=== PATIENT | male | born 1940 | race Caucasian/White ===

== ENCOUNTER → 2016-09-04 | Outpatient (REF) | payer MEDICARE ==
[~2016-09-04] MED LIST: DILT120C14 PO; INSULANT SC; JANU100T PO; LASI40TA PO; METF1000 PO; OMEP20CA3 PO; PRAV40TA2 PO
[2016-09-05 12:01] LABS: ALBUMIN 4.13 GM/DL (3.29-5.55); ALBUMIN % 51.6 % (55.8-66.1); GAMMA GLOBULIN % 14.9 % (11.1-18.8)
== END ==
LOC: M LAB REF 12:22
DX: R79.89 Other specified abnormal findings of blood chemistry (principal)

== ENCOUNTER 2017-04-12 07:30 | Inpatient (IN) | payer MEDICARE ==
[~2017-04-12] VITALS: Ht 182.9 cm; Wt 117.7 kg
[2017-04-12] MEDS ORDERED: DEXTROSE 50% 50 ML SYRINGE IV STA (07:40)
[2017-04-12] MEDS ORDERED: METF10004 PO (07:45)
[2017-04-12] MEDS ORDERED: ALBUTEROL SULFATE 2.5 MG/0.5 ML INH NEB SOLN INH ONE (07:45)
[2017-04-12] MEDS ORDERED: methylPREDNISolone INJ 125 MG/2 ML VIAL (J2930) IV ONE (07:45)
[2017-04-12] MEDS ORDERED: IPRATROPIUM 0.5MG/ALBUTEROL 2.5MG INH SOL UD 3ML (DUONEB)(J7620) NEB ONE (07:45)
[2017-04-12] MEDS ORDERED: ASPI81CH PO (07:45)
[2017-04-12] MEDS ORDERED: INSUDET SC (07:45)
[2017-04-12] MEDS ORDERED: OMEP40CA2 PO (07:45)
[2017-04-12 08:53] LABS: BASO % 0.4 % (0.0-1.0); EOS % 0.1 % (0.0-3.0); IMMATURE GRANULOCYTE % 0.3 % (0-0); LYMPH # 0.9 10^3/uL (1.5-4.5); LYMPH % 11.7 % (24.0-44.0); MEAN CORPUSCULAR HEMOGLOBIN 27.4 pg (27.0-33.0); MEAN CORPUSCULAR HGB CONC 32.3 g/dl (32.0-36.5); MEAN CORPUSCULAR VOLUME 84.7 fl (80.0-96.0); MONO # 0.6 10^3/uL (0.0-0.8); MONO % 8.1 % (0.0-5.0); NEUTROPHILS # 6.2 10^3/uL (1.8-7.7); NEUTROPHILS % 79.4 % (36.0-66.0); PLATELET COUNT, AUTOMATED 397 10^3/uL (150-450); RED CELL DISTRIBUTION WIDTH 17.2 % (11.5-14.5); WHITE BLOOD COUNT 7.8 10^3/uL (4.0-10.0)
[2017-04-12 08:57] LABS: INR 1.09
[2017-04-12] MEDS ORDERED: FUROSEMIDE 100 MG/10 ML VIAL (J1940) IV ONE (09:00)
[2017-04-12] MEDS: ASPIRIN 81 MG CHEW TABLET PO SCH (09:00)
[2017-04-12 09:22] LABS: ALBUMIN 3.4 GM/DL (3.2-5.2); ALBUMIN/GLOBULIN RATIO 0.85 (1.00-1.93); BILIRUBIN,DIRECT 0.6 MG/DL (0.0-0.2); CALCIUM LEVEL 8.9 MG/DL (8.8-10.2); CREATININE FOR GFR 1.49 MG/DL (0.70-1.30); GLOMERULAR FILTRATION RATE 48.9 (>42); POTASSIUM SERUM 3.8 MEQ/L (3.5-5.1); THYROXINE (T4) 10.6 UG/DL (4.5-12.0); TOTAL PROTEIN 7.4 GM/DL (6.4-8.2)
--- NOTE | 2017-04-12 09:42 | REP ---
PORTABLE CHEST: AP portable view of the chest is performed. Comparison is made with multiple prior exams, the most recent of which is 11/30/2015. There is cardiomegaly and vascular congestion. There appears to be mild diffuse interstitial edema. No consolidating infiltrate is visualized. There is calcification and ectasia of the thoracic aorta. IMPRESSION: Cardiomegaly with vascular congestion and mild diffuse interstitial edema. Signed by Ahsan Valerio MD 04/12/2017 05:14 P
[2017-04-12 09:48] LABS: ABG BASE EXCESS -1.8 (-2.0-2.0); ABG HCO3 22.3 MEQ/L (22.0-26.0); ABG PARTIAL PRESSURE O2 143.3 mmHg (75.0-100.0); ABG TOTAL CO2 23.4 MEQ/L (23.0-31.0)
[2017-04-12] MEDS ORDERED: PRAV80TA2 PO (10:00)
[2017-04-12] MEDS ORDERED: JANU50TA8 PO (10:00)
[2017-04-12] MEDS ORDERED: ACET650T3 PO (10:01)
[2017-04-12] MEDS ORDERED: ACET25TA12 PO (10:01)
[2017-04-12] MEDS ORDERED: VERA180C PO (10:01)
[2017-04-12] MEDS ORDERED: OMEP20CA3 PO (10:02)
[2017-04-12] MEDS ORDERED: GLUCAGON FOR INJ 1 MG VIAL (J1610) SC PRN (10:30)
[2017-04-12] MEDS ORDERED: GLUCOSE 4 GM CHEW TABLET PO PRN (10:30)
[2017-04-12] MEDS ORDERED: ALBUTEROL SULFATE 2.5 MG/0.5 ML INH NEB SOLN INH PRN (10:30)
[2017-04-12] MEDS ORDERED: DEXTROSE 50% 50 ML SYRINGE IV PRN (10:30)
[2017-04-12] MEDS ORDERED: ONDANSETRON 4MG/2ML VIAL (J2405) IV PRN (10:30)
[2017-04-12] MEDS ORDERED: ACETAMINOPHEN TAB 650MG DOSE (2X325MG) PO PRN (10:30)
[2017-04-12] MEDS: HEPARIN SOD (PORCINE) 5000 UNITS/ML VIAL SC SCH ×2 (13:14→22:10)
[2017-04-12] MEDS: HumaLOG INSULIN (NovoLOG) PER UNIT SC SCH ×3 (13:14→21:00)
[2017-04-12] MEDS: OMEPRAZOLE 20 MG CAP PO SCH (13:14)
[2017-04-12 13:45] VITALS: BP 185/97
[2017-04-12] MEDS: VERAPAMIL 40 MG TAB PO SCH ×2 (14:48→22:10)
[2017-04-12] MEDS: PRAVASTATIN 20 MG TAB PO SCH (14:48)
[2017-04-12] MEDS: FUROSEMIDE 100 MG/10 ML VIAL (J1940) IV SCH ×2 (14:48→21:58)
[2017-04-12] MEDS: IPRATROPIUM 0.5MG/ALBUTEROL 2.5MG INH SOL UD 3ML (DUONEB)(J7620) NEB SCH ×2 (15:32→20:03)
--- NOTE | 2017-04-12 15:33 | HPE ---
DATE OF ADMISSION: 04/12/2017 PRIMARY CARE PROVIDER: Dr. Valentine. CHIEF COMPLAINT: Shortness of breath. SUMMARY OF PRESENTATION: The patient described increasing shortness of breath over several weeks, with increasing weight over several months. Today, he was up between 4:30 and 5 a.m. drinking coffee outside on his porch and he became acute short of breath. It was worse with movement. He was unable to get off of his porch. He came to the hospital for evaluation, was felt to be fluid overloaded, and I was called for admission. He does not describe any fever or chills. He has had some cough. No orthopnea. No paroxysmal nocturnal dyspnea. ALLERGIES: The patient has no known drug allergies. MEDICATIONS AT HOME: - Tylenol - Lasix 40 mg daily - metformin 1000 mg at bedtime - Tylenol every evening as needed at bedtime - Janumet by mouth at bedtime - aspirin 81 mg daily - insulin Levemir 15 units subcutaneous daily - omeprazole 20 mg daily - pravastatin 80 mg daily - verapamil ER 180 mg daily PAST MEDICAL HISTORY: 1. Insulin-requiring diabetes. 2. Hyperlipidemia. 3. Hypertension. 4. History of gastrointestinal (GI) bleed in 2006. 5. Morbid obesity which complicates care. PAST SURGICAL HISTORY: 1. Notable for surgical lesion removed from his scrotum. 2. Esophagogastroduodenoscopy (EGD). 3. History of gastric ulcer with GI blood loss. SOCIAL HISTORY: The patient lives alone. He continues to smoke, he says a 1/3 pack a day. He started smoking when he was [age] years old. FAMILY HISTORY: Notable for father at age 61 with heart disease. Mother at age 57 with GI cancer. REVIEW OF SYSTEMS: Notable for no headache, no visual changes, no runny nose, no sore throat. No abdominal pain. He does not describe change in bowel or bladder habits. Does not describe history of seizures. Otherwise unremarkable. PHYSICAL EXAMINATION: VITAL SIGNS: Temperature 96.5, pulse 93, respiratory rate 26, blood pressure 152/70, 99% on two liters. GENERAL: He is awake, appropriately interactive, pleasantly conversant, a good historian. HEENT: Head is normocephalic. Pupils equal, round, and reactive. Anicteric. Nasal septum is midline. Mucous membranes are moist. NECK: Thick. LUNGS: Breathing is symmetrical. I to E ratio is 1:4. There are no wheezes, rales or rhonchi. There is no costovertebral angle tenderness. There is no sacral edema. HEART: Regular rate and rhythm. It is borderline tachycardic. Normal S1, S2. Distant sounding. Radial pulses 2+. Capillary refill is less than two seconds. ABDOMEN: Soft, doughy, nontender. Somewhat distended. There is 1+ bilateral lower extremity edema extending to the knees bilaterally. LABORATORY DATA: Chest x-ray shows cardiomegaly and vascular congestion. EKG is currently unavailable, but did not show acute ST-T wave changes. White cell count 7.8, hemoglobin 12.7, platelets 397. BUN 21, creatinine 1.49. Lactic acid was initially 3.9, repeat 2.9. Troponin negative times two. ASSESSMENT: This is a 77-year-old gentleman with decompensated congestive heart failure. Patient will require a two-midnight hospital stay. Plan will be as follows: 1. Cardiovascular: The patient would appear to have decompensated heart failure. It is unclear to me whether or not this is right or left-sided heart failure. A 2D echocardiogram is ordered. We will pursue diuresis. Place on telemetry. Cycle troponins. 2. The patient has hypercholesterolemia: We will continue statin drug. 3. The patient has diabetes: He will be continued on long-acting insulin and sliding scale. 4. The patient has hypertension: Blood pressure is reasonably controlled in the current setting. 5. The patient has morbid obesity which complicates care. 6. The patient has ongoing tobacco use: We have discussed smoking cessation counseling for greater than 10 minutes. He declines replacement therapy.
[2017-04-12 16:00] VITALS: BP 160/91
[2017-04-12 20:00] VITALS: BP 166/80
[2017-04-13] VITALS: BP 144/77
[2017-04-13 00:26] LABS: CALCIUM LEVEL 8.8 MG/DL (8.8-10.2); CREATININE FOR GFR 1.55 MG/DL (0.70-1.30); GLOMERULAR FILTRATION RATE 46.8 (>42); MAGNESIUM LEVEL 1.5 MG/DL (1.8-2.4); POTASSIUM SERUM 3.9 MEQ/L (3.5-5.1)
[2017-04-13] MEDS ORDERED: MAG SULF 1GM/100ML (MAG RUN) 1 GM in APPROPRIATE DILUENT 1 EA IV ONE (00:45)
[2017-04-13 04:00] VITALS: BP 145/75
[2017-04-13 05:36] LABS: MEAN CORPUSCULAR HGB CONC 32.5 g/dl (32.0-36.5); RED CELL DISTRIBUTION WIDTH 16.7 % (11.5-14.5); WHITE BLOOD COUNT 5.9 10^3/uL (4.0-10.0)
[2017-04-13 06:03] LABS: CALCIUM LEVEL 9.2 MG/DL (8.8-10.2); CREATININE FOR GFR 1.52 MG/DL (0.70-1.30); GLOMERULAR FILTRATION RATE 47.8 (>42); MAGNESIUM LEVEL 1.9 MG/DL (1.8-2.4); POTASSIUM SERUM 3.9 MEQ/L (3.5-5.1)
[2017-04-13] MEDS: FUROSEMIDE 100 MG/10 ML VIAL (J1940) IV SCH ×3 (06:28→21:55)
[2017-04-13] MEDS: VERAPAMIL 40 MG TAB PO SCH ×3 (06:28→21:56)
[2017-04-13 08:00] VITALS: BP 145/62
--- NOTE | 2017-04-13 08:06 | ECGEPIP ---
Stationary ECG Study [facility] - ED Test Date: 2017-04-12 Pat Name: EDA LOYOLA Department: Room: - Gender: M Chairman Emeritus: : 1940 Requested By: Isidro Caputo Order Number: [id number] Reading MD: Scottie Obrien Measurements Intervals [place] Rate: 92 P: 13 DE: 145 QRS: 61 QRSD: 137 T: 36 QT: 378 QTc: 469 Interpretive Statements SINUS RHYTHM WITH FREQUENT VENTRICULAR PREMATURE COMPLEXES AND OCCASIONAL PAC POSSIBLE LEFT ATRIAL ENLARGEMENT RIGHT BUNDLE BRANCH BLOCK PROBABLE ANTERIOR MYOCARDIAL INFARCTION, OF INDETERMINATE AGE SIMILAR TO 01/12/13 Electronically Signed On 04-13-2017 8:05:47 EDT by Scottie Obrien
[2017-04-13] MEDS: IPRATROPIUM 0.5MG/ALBUTEROL 2.5MG INH SOL UD 3ML (DUONEB)(J7620) NEB SCH ×4 (08:25→19:55)
[2017-04-13] MEDS: ASPIRIN 81 MG CHEW TABLET PO SCH (09:00)
[2017-04-13] MEDS: HEPARIN SOD (PORCINE) 5000 UNITS/ML VIAL SC SCH ×2 (09:55→21:54)
[2017-04-13] MEDS: OMEPRAZOLE 20 MG CAP PO SCH (09:55)
[2017-04-13] MEDS: PRAVASTATIN 20 MG TAB PO SCH (09:55)
[2017-04-13] MEDS: HumaLOG INSULIN (NovoLOG) PER UNIT SC SCH ×4 (09:56→21:00)
[2017-04-13] MEDS: LEVEMIR (INSULIN DETEMIR) 1 UNITS/0.01ML SC SCH (09:56)
[2017-04-13 12:00] VITALS: BP 134/64
[2017-04-13 16:00] VITALS: BP 126/62
[2017-04-13 20:00] VITALS: BP 141/81
--- NOTE | 2017-04-13 20:50 | ECGEPIP ---
Stationary ECG Study [facility] Test Date: 2017-04-13 Pat Name: EDA LOYOLA Department: Room: - Gender: M Eyedotter: NORAH : 1940 Requested By: ORLANDO Singh Order Number: [id number] Reading MD: Orlando Watts Measurements Intervals [place] Rate: 89 P: 9 VT: 169 QRS: -9 QRSD: 136 T: 24 QT: 396 QTc: 483 Interpretive Statements SINUS RHYTHM, 1 PVC RIGHT BUNDLE BRANCH BLOCK PROBABLE Right ventricle hypertrophy. Fewer PVCs than 04/12/2017. Electronically Signed On 04-13-2017 20:49:47 EDT by Orlando Watts
[2017-04-14] VITALS: BP 142/78
[2017-04-14 04:00] VITALS: BP 142/80
--- NOTE | 2017-04-14 04:35 | IPN ---
DATE OF SERVICE: 04/13/2017 Mr. Malcolm is feeling well today, less short of breath, more energetic, no chest pain. Temperature is 98.5, pulse 89, respiratory rate 20, blood pressure 134/64, 94% on room air. Intake and output (I and O) notable for a negative fluid balance of -1895. Weight is 134.6 kg today, which is actually up 0.2 from yesterday. Breathing is symmetrical and rested. I:E ratio is 1:3. Heart is in a regular rate and rhythm. Abdomen soft, doughy, nontender. He has had short runs of nonsustained VT on monitor. White cell count is 5.9, hemoglobin 11.6, platelets of 384. BUN 24, creatinine 1.52, sodium is 135. Blood cultures are negative times two at 24 hours. My assessment is as follows: This is a 77-year-old with decompensated congestive heart failure with unknown left ventricular ejection fraction. Plan will be as follows: 1. Cardiovascular. Patient has decompensated heart failure. 2D echocardiogram is pending for today. I have discussed it in general with the echocardiogram dentures lab technician. Will look for diastolic or systolic function, possibility of right-sided heart failure does occur to me. 2. Patient has hypercholesterolemia. Continue statin. 3. Patient has diabetes. Continuing on insulin as ordered yesterday. 4. Patient has hypertension, which is well controlled for the current setting. 5. Patient has morbid obesity which complicates care. We did discuss this patient by phone with Dr. Valentine last evening.
[2017-04-14] MEDS: FUROSEMIDE 100 MG/10 ML VIAL (J1940) IV SCH ×3 (05:53→21:40)
[2017-04-14] MEDS: VERAPAMIL 40 MG TAB PO SCH ×3 (05:53→22:02)
[2017-04-14 07:02] LABS: MEAN CORPUSCULAR HEMOGLOBIN 26.8 pg (27.0-33.0); MEAN CORPUSCULAR HGB CONC 32.4 g/dl (32.0-36.5); MEAN CORPUSCULAR VOLUME 82.6 fl (80.0-96.0); RED CELL DISTRIBUTION WIDTH 17.2 % (11.5-14.5); WHITE BLOOD COUNT 8.7 10^3/uL (4.0-10.0)
[2017-04-14 07:20] LABS: CALCIUM LEVEL 8.9 MG/DL (8.8-10.2); CREATININE FOR GFR 1.53 MG/DL (0.70-1.30); GLOMERULAR FILTRATION RATE 47.5 (>42); MAGNESIUM LEVEL 1.7 MG/DL (1.8-2.4); POTASSIUM SERUM 3.3 MEQ/L (3.5-5.1)
[2017-04-14] MEDS: HumaLOG INSULIN (NovoLOG) PER UNIT SC SCH ×4 (07:52→21:39)
[2017-04-14 08:00] VITALS: BP 150/78
[2017-04-14] MEDS: IPRATROPIUM 0.5MG/ALBUTEROL 2.5MG INH SOL UD 3ML (DUONEB)(J7620) NEB SCH (08:13)
[2017-04-14] MEDS: LEVEMIR (INSULIN DETEMIR) 1 UNITS/0.01ML SC SCH (09:18)
[2017-04-14] MEDS: OMEPRAZOLE 20 MG CAP PO SCH (09:19)
[2017-04-14] MEDS: ASPIRIN 81 MG CHEW TABLET PO SCH (09:19)
[2017-04-14] MEDS: PRAVASTATIN 20 MG TAB PO SCH (09:19)
[2017-04-14] MEDS: HEPARIN SOD (PORCINE) 5000 UNITS/ML VIAL SC SCH ×2 (09:19→22:01)
--- NOTE | 2017-04-14 10:25 | IPN ---
DATE: 04/14/2017 Mr. Malcolm is still feeling short of breath today. He is short of breath with just getting cleaned up and moving around the room. Temperature is 97.8, pulse 91, respiratory rate 18, blood pressure 150/78, 97% on room air. Intake and output notable for a positive fluid balance of 15. No bowel movements noted. Body mass index (BMI) is 40.1. Negative fluid status of -1700 thus far today. He is awake, appropriately interactive, pleasant, easily conversant. Remembers me from previous encounters. Neck is thick. Breathing is symmetrical and rested. No accessory muscle use. Diminished more on the right than the left. Heart is distant sounding. Normal S1 and S2. No significant arrhythmia noted on the monitor. Abdomen soft, doughy, nontender. There is 1-2 + bilateral lower extremity edema to the knees. White cell count is 8.7, hemoglobin 12, platelets of 390. BUN 26, creatinine 1.53, potassium 3.3. My assessment is as follows: This is a 77-year-old with decompensated congestive heart failure with unknown left ventricular ejection fraction. 2D echo is still pending. Plan is as follows: 1. Cardiovascular. Patient has decompensated heart failure. I have asked for a verbal report of the ejection fraction when it becomes available from the cardiology team. Will continue with diuresis as currently ordered. Patient has a net negative fluid status during the course of his stay probably could stand to lose another 6 liters based on my current assessment. 2. Patient has hypercholesterolemia. Continue statin. 3. Patient has diabetes. Continue on insulin. 4. Patient has hypertension, which is reasonably controlled for the current setting. 5. Patient has morbid obesity, which complicates care. 7. This is a patient of Dr. Valentine's. 8. Addendum: I discussed with Dr. Watts by phone. EF 30%. Inferior wall motion abnormality. Mod mr. Mod tr. RV impairment. RV pressure 60. IVC pressure likely 20. Dr. Watts would like to see in outpt consultation. [facility]
--- NOTE | 2017-04-14 10:54 | REP ---
Chest two views HISTORY: Shortness of breath Comparison: 04/12/2017 An increase in interstitial markings is present in the lungs. Small bilateral pleural effusions are present. The cardiac silhouette is enlarged. The pulmonary vasculature is normal in appearance. The bony structure is intact. IMPRESSION: Impression 1. Interstitial edema unchanged compared to the previous study. 2. Small bilateral pleural effusions new compared to the previous study. Signed by Rashawn Sow MD 04/14/2017 10:46 A
[2017-04-14] MEDS ORDERED: POTASSIUM CHLORIDE 10 MEQ SR TABLET PO ONE (11:00)
[2017-04-14] MEDS ORDERED: MAG SULF 1GM/100ML (MAG RUN) 1 GM in APPROPRIATE DILUENT 1 EA IV ONE (11:00)
[2017-04-14 12:00] VITALS: BP 143/77
[2017-04-14 16:00] VITALS: BP 147/87
[2017-04-14 19:27] VITALS: BP 131/70
[2017-04-15] VITALS: BP 137/72
[2017-04-15 04:00] VITALS: BP 140/81
--- NOTE | 2017-04-15 05:43 | ECHO ---
DATE OF PROCEDURE: 04/14/2017 REFERRING PHYSICIAN: Dr. Orlando Cueto. INDICATION: Heart failure unspecified, shortness of breath. HEIGHT: 73 inches. WEIGHT: 295 pounds. 2D MEASUREMENTS: Aortic root: 3.7 cm Proximal ascending aorta: 3.6 cm Left atrium: 4.9 cm Left ventricle diastole: 5.2 cm Left ventricle systole: 4.7 cm Ventricular septum: 1.04 cm Posterior wall: 1.00 cm Inferior vena cava: 2.7 cm DOPPLER MEASUREMENTS: Aortic valve velocity: 118 cm/s LVOT velocity: 84.2 cm/s LVOT VTI: 14.3 cm Moderate mitral regurgitation. Mitral E velocity: 140 cm/s Mitral A velocity: 82.4 cm/s Mitral deacceleration time: 127 ms Moderate tricuspid regurgitation. Estimated right ventricular systolic pressure at least 60 mmHg assuming an atrial pressure of at least 20 mmHg based on a dilated inferior vena cava suggestive of elevated CVP of at least 20 mmHg. Pulmonary artery systolic pressure 46 mmHg by pulmonary acceleration time method. MITRAL ANNULAR TISSUE DOPPLER: E-prime lateral: 6.4 cm/s DESCRIPTION: Rhythm was sinus. This was a moderately technically difficult echocardiogram. No pericardial effusion. This was a 2D, M-mode, color flow Doppler and pulsed wave Doppler examination and included mitral annular tissue Doppler. CONCLUSIONS: 1. Normal left ventricle size and diastole and mild dilatation of the left ventricle and systole. Normal LV wall thickness. Akinesis of the inferior basal segment of the left ventricle and severe hyperkinesis of the mid inferior LV segment; moderate global hypokinesis of the left ventricle elsewhere. Severe reduction of overall LV systolic function. LVEF 30% by visual estimate. 2. Pseudonormal LV diastolic filling pattern (grade 2 LV diastolic dysfunction). Presence of a B-notch on the mitral valve M-mode pattern suggestive of elevated left ventricle and diastolic pressure. Suggestive of elevated mean left pressure. 3. Normal appearing mitral leaflets. Moderate mitral regurgitation. 4. Mild aortic valve sclerosis of a 3-cusp aortic valve. 5. Visual appearance of moderate reduction in right ventricle systolic function. Normal right ventricle size. Moderate tricuspid regurgitation with structurally normal appearing mitral leaflets. Suggestive of severe elevation of estimated right ventricle systolic pressure. Elevated central venous pressure of at least 20 mmHg. Inferior vena cava plethora. 6. No pericardial effusion. 7. Moderately technically difficult echocardiogram. cc: Orlando Watts MD, FACC MD Edu Ryan MD
[2017-04-15] MEDS: FUROSEMIDE 100 MG/10 ML VIAL (J1940) IV SCH ×3 (05:56→21:37)
[2017-04-15] MEDS: VERAPAMIL 40 MG TAB PO SCH (05:57)
[2017-04-15] MEDS: HumaLOG INSULIN (NovoLOG) PER UNIT SC SCH ×4 (07:28→21:36)
[2017-04-15 07:51] LABS: MEAN CORPUSCULAR HGB CONC 32.4 g/dl (32.0-36.5); MEAN CORPUSCULAR VOLUME 83.5 fl (80.0-96.0); RED CELL DISTRIBUTION WIDTH 17.3 % (11.5-14.5); WHITE BLOOD COUNT 7.7 10^3/uL (4.0-10.0)
[2017-04-15 08:00] VITALS: BP 135/86
[2017-04-15 08:10] LABS: CALCIUM LEVEL 9.1 MG/DL (8.8-10.2); CREATININE FOR GFR 1.27 MG/DL (0.70-1.30); GLOMERULAR FILTRATION RATE 58.9 (>42); POTASSIUM SERUM 3.7 MEQ/L (3.5-5.1)
[2017-04-15] MEDS: HEPARIN SOD (PORCINE) 5000 UNITS/ML VIAL SC SCH ×2 (08:24→21:50)
[2017-04-15] MEDS: PRAVASTATIN 20 MG TAB PO SCH (08:24)
[2017-04-15] MEDS: LEVEMIR (INSULIN DETEMIR) 1 UNITS/0.01ML SC SCH (08:24)
[2017-04-15] MEDS: OMEPRAZOLE 20 MG CAP PO SCH (08:24)
[2017-04-15] MEDS: ASPIRIN 81 MG CHEW TABLET PO SCH (08:24)
[2017-04-15 12:00] VITALS: BP 137/76
[2017-04-15] MEDS: amLODIPine 10 MG TAB PO SCH (12:20)
[2017-04-15] MEDS: SENOKOT S TAB PO SCH ×2 (12:21→21:48)
--- NOTE | 2017-04-15 12:27 | IPNPDOC ---
Subjective Date Seen The patient was seen on 04/15/17. Subjective Chief Complaint/HPI The patient is a 77-year-old male admitted with a reason for visit of Congestive Heart Failure. Events since last encounter sob getting better, leg swelling still unchanged , no chest pain , no cough , no fever or chills, no nausea or vomiting or abdominal pain , has constipation. Objective Physical Examination General Exam: Positive: Alert, Cooperative, No Acute Distress Eye Exam: Positive: PERRLA, Conjunctiva & lids normal, EOMI, Negative: Sclera icteric ENT Exam: Positive: Atraumatic, Mucous membr. moist/pink, Pharynx Normal Neck Exam: Positive: Supple, Negative: JVD, thyromegaly Chest Exam: Positive: Rales, Diminished Heart Exam: Positive: Rate Normal, Regular Rhythm, Normal S1, Normal S2, Negative: Murmurs, Rubs Telemetry: Positive: No significant arrhythmia Abdomen Exam: Positive: Normal bowel sounds, Soft, Negative: Tenderness, Hepatospenomegaly Extremity Exam: Positive: Edema Skin Exam: Positive: Nl turgor and temperature, Negative: Rash, Breakdown Assessment /Plan Problems (1) Systolic CHF Status: Acute Problem Text: acute systolic CHF with EF of 30% Echo shows regional wall motion abnomality so possibly has underlying obstructive coronary artery disease with prior silent AMI. will need to follow up with banking supervisor. will continue with lasix, will change verapamil to amlodipine as has no negative ionotrophic effect. will start lisinopril will try to increase lisinopril as tolerated. (2) KYA (acute kidney injury) Status: Acute Problem Text: due to cardiorenal disease due to CHF and fluid overload improving after aggressive diuresis. (3) Pulmonary hypertension Status: Chronic Problem Text: possibly secondary to left sided heart failure. (4) Right heart failure Status: Acute Response to Treatment: Improving (5) Hyperlipidemia Status: Chronic Problem Text: continue statin (6) Morbid obesity Status: Chronic (7) Hypertension Status: Chronic Problem Text: will give amlodipine and start lisinopril will try to switch from calcium channel sukh to ACEi and betablocker. (8) Diabetes Status: Chronic Plan/VTE VTE Prophylaxis Ordered?: Yes VS, I&O, 24H, Fishbone Vital Signs/I&O Vital Signs Date Time Temp Pulse Resp B/P (MAP) Pulse Ox O2 Delivery O2 Flow Rate FiO2 10/2/17 08:00 Room Air 04/15/17 08:00 97.7 89 16 135/86 (102) 98 04/12/17 15:20 1.0 I&O- Last 24 Hours up to 6 AM 04/16/17 05:59 Intake Total 360 ml Output Total 800 ml Balance -440 ml Laboratory Data 24H LABS Laboratory Tests 2 04/14/17 12:09: Bedside Glucose (Misc Panel) 151H 04/14/17 17:35: Bedside Glucose (Misc Panel) 83 04/14/17 21:34: Bedside Glucose (Misc Panel) 150H 04/15/17 07:24: Bedside Glucose (Misc Panel) 100 04/15/17 07:41: Anion Gap 9, Glomerular Filtration Rate 58.9, Blood Urea Nitrogen 26H, Creatinine 1.27, Sodium Level 136, Potassium Level 3.7, Chloride Level 99, Carbon Dioxide Level 28, Calcium Level 9.1, Magnesium Level 2.0 04/15/17 11:45: Bedside Glucose (Misc Panel) 165H CBC/BMP Laboratory Tests 04/15/17 07:41 Red Blood Count 4.66, Mean Corpuscular Volume 83.5, Mean Corpuscular Hemoglobin 27.0, Mean Corpuscular Hemoglobin Concent 32.4, Red Cell Distribution Width 17.3 H, Calcium Level 9.1 Microbiology Microbiology 04/12/17 Blood Culture - Preliminary, Resulted No Growth after 72 hours. All specime... 04/12/17 Blood Culture - Preliminary, Resulted No Growth after 72 hours. All specime... 04/12/17 Influenza Virus Type A Antigen - Final, Complete 04/12/17 Influenza Virus Type B Antigen - Final, Complete SOBEIDA BURRIS MD Apr 15, 2017 12:27
[2017-04-15 16:00] VITALS: BP_SYST 137; BP_SYST 138; BP_DIAS 71; BP_DIAS 96
[2017-04-15 20:00] VITALS: BP 153/75
[2017-04-15] MEDS ORDERED: LISINOPRIL 5 MG TAB PO SCH (21:00)
[2017-04-16] VITALS: BP 125/66
[2017-04-16 04:00] VITALS: BP 144/78
[2017-04-16] MEDS: FUROSEMIDE 100 MG/10 ML VIAL (J1940) IV SCH ×3 (06:21→21:48)
[2017-04-16 06:24] LABS: MEAN CORPUSCULAR HEMOGLOBIN 27.3 pg (27.0-33.0); MEAN CORPUSCULAR HGB CONC 32.5 g/dl (32.0-36.5); MEAN CORPUSCULAR VOLUME 84.2 fl (80.0-96.0); RED CELL DISTRIBUTION WIDTH 17.2 % (11.5-14.5); WHITE BLOOD COUNT 6.2 10^3/uL (4.0-10.0)
[2017-04-16 06:45] LABS: ANION GAP 6 MEQ/L (8-16); BLOOD UREA NITROGEN 24 MG/DL (7-18); CALCIUM LEVEL 8.7 MG/DL (8.8-10.2); CARBON DIOXIDE LEVEL 32 MEQ/L (21-32); CHLORIDE LEVEL 100 MEQ/L (98-107); CREATININE FOR GFR 1.12 MG/DL (0.70-1.30); GLOMERULAR FILTRATION RATE > 60.0 (>42); GLUCOSE, FASTING 89 MG/DL (83-110); MAGNESIUM LEVEL 1.9 MG/DL (1.8-2.4); POTASSIUM SERUM 3.6 MEQ/L (3.5-5.1); SODIUM LEVEL 138 MEQ/L (136-145)
[2017-04-16] MEDS: HumaLOG INSULIN (NovoLOG) PER UNIT SC SCH ×4 (07:14→21:00)
[2017-04-16 08:00] VITALS: BP 135/75
[2017-04-16] MEDS: OMEPRAZOLE 20 MG CAP PO SCH (08:29)
[2017-04-16] MEDS: SENOKOT S TAB PO SCH ×2 (08:29→21:48)
[2017-04-16] MEDS: PRAVASTATIN 20 MG TAB PO SCH (08:29)
[2017-04-16] MEDS: ASPIRIN 81 MG CHEW TABLET PO SCH (08:29)
[2017-04-16] MEDS: HEPARIN SOD (PORCINE) 5000 UNITS/ML VIAL SC SCH ×2 (08:29→21:48)
[2017-04-16] MEDS: LEVEMIR (INSULIN DETEMIR) 1 UNITS/0.01ML SC SCH (08:30)
[2017-04-16] MEDS: amLODIPine 10 MG TAB PO SCH (08:30)
--- NOTE | 2017-04-16 11:24 | IPNPDOC ---
Subjective Date Seen The patient was seen on 04/16/17. Subjective Chief Complaint/HPI The patient is a 77-year-old male admitted with a reason for visit of Congestive Heart Failure. Events since last encounter No complaints this morning , denies any sob , denies any chest pain or cough , leg swelling improving. Objective Physical Examination General Exam: Positive: Alert, Cooperative, No Acute Distress Eye Exam: Positive: PERRLA, Conjunctiva & lids normal, EOMI, Negative: Sclera icteric ENT Exam: Positive: Atraumatic, Mucous membr. moist/pink, Pharynx Normal Neck Exam: Positive: Supple, Negative: JVD, thyromegaly Chest Exam: Positive: Rales, Diminished Heart Exam: Positive: Rate Normal, Regular Rhythm, Normal S1, Normal S2, Negative: Murmurs, Rubs Telemetry: Positive: No significant arrhythmia Abdomen Exam: Positive: Normal bowel sounds, Soft, Negative: Tenderness, Hepatospenomegaly Extremity Exam: Positive: Edema Skin Exam: Positive: Nl turgor and temperature, Negative: Rash, Breakdown Assessment /Plan Problems (1) Systolic CHF Status: Acute Problem Text: acute systolic CHF with EF of 30% Echo shows regional wall motion abnomality so possibly has underlying obstructive coronary artery disease with prior silent AMI. will need to follow up with defense travel administrator. will continue with lasix, will change verapamil to amlodipine as has no negative ionotrophic effect. will start on low dose coreg. will start lisinopril will try to increase lisinopril as tolerated. (2) KYA (acute kidney injury) Status: Acute Response to Treatment: Improving Problem Text: due to cardiorenal disease due to CHF and fluid overload improving after aggressive diuresis. (3) Pulmonary hypertension Status: Chronic Problem Text: possibly secondary to left sided heart failure. (4) Right heart failure Status: Acute Response to Treatment: Improving (5) Hyperlipidemia Status: Chronic Problem Text: continue statin (6) Morbid obesity Status: Chronic (7) Hypertension Status: Chronic Problem Text: will give amlodipine started on lisinopril, start on coreg will try to switch from calcium channel sukh to ACEi and betablocker. (8) Diabetes Status: Chronic Plan/VTE VTE Prophylaxis Ordered?: Yes VS, I&O, 24H, Fishbone Vital Signs/I&O Vital Signs Date Time Temp Pulse Resp B/P (MAP) Pulse Ox O2 Delivery O2 Flow Rate FiO2 04/16/17 08:33 Room Air 04/16/17 08:30 85 135/75 04/16/17 08:00 97.8 18 96 04/12/17 15:20 1.0 I&O- Last 24 Hours up to 6 AM 04/17/17 06:00 Intake Total 240 ml Output Total 850 ml Balance -610 ml Laboratory Data 24H LABS Laboratory Tests 2 04/15/17 11:45: Bedside Glucose (Misc Panel) 165H 04/15/17 16:28: Bedside Glucose (Misc Panel) 106 04/15/17 20:35: Bedside Glucose (Misc Panel) 59L 04/15/17 21:31: Bedside Glucose (Misc Panel) 102 04/16/17 06:00: Anion Gap 6L, Glomerular Filtration Rate > 60.0, Blood Urea Nitrogen 24H, Creatinine 1.12, Sodium Level 138, Potassium Level 3.6, Chloride Level 100, Carbon Dioxide Level 32, Calcium Level 8.7L, Magnesium Level 1.9 CBC/BMP Laboratory Tests 04/16/17 06:00 Red Blood Count 4.50, Mean Corpuscular Volume 84.2, Mean Corpuscular Hemoglobin 27.3, Mean Corpuscular Hemoglobin Concent 32.5, Red Cell Distribution Width 17.2 H, Calcium Level 8.7 L Microbiology Microbiology 04/12/17 Blood Culture - Preliminary, Resulted No Growth after 72 hours. All specime... 04/12/17 Blood Culture - Preliminary, Resulted No Growth after 72 hours. All specime... 04/12/17 Influenza Virus Type A Antigen - Final, Complete 04/12/17 Influenza Virus Type B Antigen - Final, Complete SOBEIDA BURRIS MD Apr 16, 2017 11:24
[2017-04-16 12:00] VITALS: BP 140/77
[2017-04-16] MEDS: CARVedilol 3.125 MG TAB PO SCH ×2 (12:07→21:49)
[2017-04-16 16:00] VITALS: BP 136/72
[2017-04-16 20:00] VITALS: BP 138/63
[2017-04-16] MEDS: LISINOPRIL 10 MG TAB PO SCH (21:50)
[2017-04-17] VITALS: BP 127/73
[2017-04-17 04:00] VITALS: BP 129/73
[2017-04-17 05:59] LABS: MEAN CORPUSCULAR HGB CONC 32.5 g/dl (32.0-36.5); MEAN CORPUSCULAR VOLUME 82.9 fl (80.0-96.0); WHITE BLOOD COUNT 6.5 10^3/uL (4.0-10.0)
[2017-04-17 06:25] LABS: ANION GAP 7 MEQ/L (8-16); BLOOD UREA NITROGEN 25 MG/DL (7-18); CALCIUM LEVEL 8.9 MG/DL (8.8-10.2); CARBON DIOXIDE LEVEL 31 MEQ/L (21-32); CHLORIDE LEVEL 101 MEQ/L (98-107); CREATININE FOR GFR 1.15 MG/DL (0.70-1.30); GLOMERULAR FILTRATION RATE > 60.0 (>42); GLUCOSE, FASTING 120 MG/DL (83-110); MAGNESIUM LEVEL 1.8 MG/DL (1.8-2.4); POTASSIUM SERUM 3.6 MEQ/L (3.5-5.1); SODIUM LEVEL 139 MEQ/L (136-145)
[2017-04-17] MEDS: FUROSEMIDE 100 MG/10 ML VIAL (J1940) IV SCH ×3 (06:26→21:50)
[2017-04-17] MEDS: HumaLOG INSULIN (NovoLOG) PER UNIT SC SCH ×4 (07:56→21:00)
[2017-04-17 08:00] VITALS: BP 136/68
[2017-04-17] MEDS: HEPARIN SOD (PORCINE) 5000 UNITS/ML VIAL SC SCH ×2 (08:30→21:49)
[2017-04-17] MEDS: PRAVASTATIN 20 MG TAB PO SCH (08:31)
[2017-04-17] MEDS: SENOKOT S TAB PO SCH ×2 (08:31→21:48)
[2017-04-17] MEDS: OMEPRAZOLE 20 MG CAP PO SCH (08:31)
[2017-04-17] MEDS: CARVedilol 3.125 MG TAB PO SCH ×2 (08:31→21:49)
[2017-04-17] MEDS: ASPIRIN 81 MG CHEW TABLET PO SCH (08:31)
[2017-04-17] MEDS: LEVEMIR (INSULIN DETEMIR) 1 UNITS/0.01ML SC SCH (08:31)
[2017-04-17] MEDS ORDERED: amLODIPine 5 MG TAB PO SCH (09:00)
--- NOTE | 2017-04-17 12:40 | IPNPDOC ---
Subjective Date Seen The patient was seen on 04/17/17. Subjective Chief Complaint/HPI The patient is a 77-year-old male admitted with a reason for visit of Congestive Heart Failure. Events since last encounter No new complaints, feeling better daily with good negative balance. Objective Physical Examination General Exam: Positive: Alert, Cooperative, No Acute Distress Eye Exam: Positive: PERRLA, Conjunctiva & lids normal, EOMI, Negative: Sclera icteric ENT Exam: Positive: Atraumatic, Mucous membr. moist/pink, Pharynx Normal Neck Exam: Positive: Supple, Negative: JVD, thyromegaly Chest Exam: Positive: Rales, Diminished Heart Exam: Positive: Rate Normal, Regular Rhythm, Normal S1, Normal S2, Negative: Murmurs, Rubs Telemetry: Positive: No significant arrhythmia Abdomen Exam: Positive: Normal bowel sounds, Soft, Negative: Tenderness, Hepatospenomegaly Extremity Exam: Positive: Edema Skin Exam: Positive: Nl turgor and temperature, Negative: Rash, Breakdown Assessment /Plan Problems (1) Systolic CHF Status: Acute Problem Text: acute systolic CHF with EF of 30% Echo shows regional wall motion abnomality so possibly has underlying obstructive coronary artery disease with prior silent AMI. will need to follow up with pan washer hand. will continue with lasix, stopped verapamil. will start on low dose coreg. will start lisinopril will try to increase lisinopril as tolerated. (2) KYA (acute kidney injury) Status: Resolved Response to Treatment: Improving Problem Text: due to cardiorenal disease due to CHF and fluid overload improving after aggressive diuresis. (3) Pulmonary hypertension Status: Chronic Problem Text: possibly secondary to left sided heart failure. (4) Right heart failure Status: Acute Response to Treatment: Improving (5) Hyperlipidemia Status: Chronic Problem Text: continue statin (6) Morbid obesity Status: Chronic (7) Hypertension Status: Chronic Problem Text: will stop calcium channel blockers. started on lisinopril and coreg will try to increase ACEi and betablocker as tolerated. (8) Diabetes Status: Chronic Plan/VTE VTE Prophylaxis Ordered?: Yes VS, I&O, 24H, Fishbone Vital Signs/I&O Vital Signs Date Time Temp Pulse Resp B/P (MAP) Pulse Ox O2 Delivery O2 Flow Rate FiO2 04/17/17 08:31 78 136/68 04/17/17 08:00 97.9 20 92 Room Air 04/12/17 15:20 1.0 I&O- Last 24 Hours up to 6 AM 04/18/17 06:00 Intake Total 360 ml Output Total 800 ml Balance -440 ml Laboratory Data 24H LABS Laboratory Tests 2 04/16/17 16:37: Bedside Glucose (Misc Panel) 157H 04/16/17 22:03: Bedside Glucose (Misc Panel) 72L 04/17/17 05:48: Anion Gap 7L, Glomerular Filtration Rate > 60.0, Blood Urea Nitrogen 25H, Creatinine 1.15, Sodium Level 139, Potassium Level 3.6, Chloride Level 101, Carbon Dioxide Level 31, Calcium Level 8.9, Magnesium Level 1.8 04/17/17 11:56: Bedside Glucose (Misc Panel) 140H CBC/BMP Laboratory Tests 04/17/17 05:48 Red Blood Count 4.34, Mean Corpuscular Volume 82.9, Mean Corpuscular Hemoglobin 27.0, Mean Corpuscular Hemoglobin Concent 32.5, Red Cell Distribution Width 17.0 H, Calcium Level 8.9 Microbiology Microbiology 04/12/17 Blood Culture - Final, Complete NO GROWTH AFTER 5 DAYS 04/12/17 Blood Culture - Final, Complete NO GROWTH AFTER 5 DAYS 04/12/17 Influenza Virus Type A Antigen - Final, Complete 04/12/17 Influenza Virus Type B Antigen - Final, Complete SOBEIDA BURRIS MD Apr 17, 2017 12:40
[2017-04-17 14:47] VITALS: BP 132/74
[2017-04-17] MEDS: LISINOPRIL 10 MG TAB PO SCH (21:49)
[2017-04-17 22:00] VITALS: BP 155/76
[2017-04-18 06:00] VITALS: BP 140/78
[2017-04-18] MEDS: FUROSEMIDE 100 MG/10 ML VIAL (J1940) IV SCH ×3 (06:43→22:20)
[2017-04-18 06:55] LABS: MEAN CORPUSCULAR HEMOGLOBIN 27.4 pg (27.0-33.0); MEAN CORPUSCULAR HGB CONC 32.5 g/dl (32.0-36.5); MEAN CORPUSCULAR VOLUME 84.3 fl (80.0-96.0); RED CELL DISTRIBUTION WIDTH 17.2 % (11.5-14.5); WHITE BLOOD COUNT 6.5 10^3/uL (4.0-10.0)
[2017-04-18 07:18] LABS: ANION GAP 8 MEQ/L (8-16); BLOOD UREA NITROGEN 26 MG/DL (7-18); CALCIUM LEVEL 9.1 MG/DL (8.8-10.2); CARBON DIOXIDE LEVEL 30 MEQ/L (21-32); CHLORIDE LEVEL 100 MEQ/L (98-107); CREATININE FOR GFR 1.22 MG/DL (0.70-1.30); GLOMERULAR FILTRATION RATE > 60.0 (>42); GLUCOSE, FASTING 118 MG/DL (83-110); MAGNESIUM LEVEL 2.1 MG/DL (1.8-2.4); POTASSIUM SERUM 3.8 MEQ/L (3.5-5.1); SODIUM LEVEL 138 MEQ/L (136-145)
[2017-04-18] MEDS: LEVEMIR (INSULIN DETEMIR) 1 UNITS/0.01ML SC SCH (09:59)
[2017-04-18] MEDS: HumaLOG INSULIN (NovoLOG) PER UNIT SC SCH ×4 (10:02→21:00)
[2017-04-18] MEDS: ASPIRIN 81 MG CHEW TABLET PO SCH (10:03)
[2017-04-18] MEDS: HEPARIN SOD (PORCINE) 5000 UNITS/ML VIAL SC SCH ×2 (10:03→21:12)
[2017-04-18] MEDS: OMEPRAZOLE 20 MG CAP PO SCH (10:03)
[2017-04-18] MEDS: SENOKOT S TAB PO SCH ×2 (10:04→21:10)
[2017-04-18] MEDS: PRAVASTATIN 20 MG TAB PO SCH (10:05)
[2017-04-18] MEDS: CARVedilol 3.125 MG TAB PO SCH ×2 (10:05→21:11)
--- NOTE | 2017-04-18 11:44 | IPNPDOC ---
Subjective Date Seen The patient was seen on 04/18/17. Subjective Chief Complaint/HPI The patient is a 77-year-old male admitted with a reason for visit of Congestive Heart Failure. Events since last encounter feeling well no complaints this am. Objective Physical Examination General Exam: Positive: Alert, Cooperative, No Acute Distress Eye Exam: Positive: PERRLA, Conjunctiva & lids normal, EOMI, Negative: Sclera icteric ENT Exam: Positive: Atraumatic, Mucous membr. moist/pink, Pharynx Normal Neck Exam: Positive: Supple, Negative: JVD, thyromegaly Chest Exam: Positive: Rales, Diminished Heart Exam: Positive: Rate Normal, Regular Rhythm, Normal S1, Normal S2, Negative: Murmurs, Rubs Telemetry: Positive: No significant arrhythmia Abdomen Exam: Positive: Normal bowel sounds, Soft, Negative: Tenderness, Hepatospenomegaly Extremity Exam: Positive: Edema Skin Exam: Positive: Nl turgor and temperature, Negative: Rash, Breakdown Assessment /Plan Problems (1) Systolic CHF Status: Acute Problem Text: acute systolic CHF with EF of 30% Echo shows regional wall motion abnomality so possibly has underlying obstructive coronary artery disease with prior silent AMI. will need to follow up with entry table operator. will continues with lisinopril and coreg and maximize as tolerated. (2) KYA (acute kidney injury) Status: Resolved Problem Text: due to cardiorenal disease due to CHF and fluid overload improved after aggressive diuresis. (3) Pulmonary hypertension Status: Chronic Problem Text: possibly secondary to left sided heart failure. (4) Right heart failure Status: Acute Response to Treatment: Improving Problem Text: continue with diuresis. (5) Hyperlipidemia Status: Chronic Problem Text: continue statin (6) Morbid obesity Status: Chronic (7) Hypertension Status: Chronic Problem Text: will stop calcium channel blockers. started on lisinopril and coreg will try to increase ACEi and betablocker as tolerated. (8) Diabetes Status: Chronic Plan/VTE VTE Prophylaxis Ordered?: Yes VS, I&O, 24H, Fishbone Vital Signs/I&O Vital Signs Date Time Temp Pulse Resp B/P (MAP) Pulse Ox O2 Delivery O2 Flow Rate FiO2 04/18/17 10:05 78 140/73 04/18/17 06:00 96.8 18 99 Room Air 04/12/17 15:20 1.0 I&O- Last 24 Hours up to 6 AM 04/19/17 06:00 Intake Total 480 ml Output Total 850 ml Balance -370 ml Laboratory Data 24H LABS Laboratory Tests 2 04/17/17 11:56: Bedside Glucose (Misc Panel) 140H 04/17/17 16:30: Bedside Glucose (Misc Panel) 122H 04/17/17 21:01: Bedside Glucose (Misc Panel) 142H 04/18/17 06:24: Anion Gap 8, Glomerular Filtration Rate > 60.0, Blood Urea Nitrogen 26H, Creatinine 1.22, Sodium Level 138, Potassium Level 3.8, Chloride Level 100, Carbon Dioxide Level 30, Calcium Level 9.1, Magnesium Level 2.1 CBC/BMP Laboratory Tests 04/18/17 06:24 Red Blood Count 4.64, Mean Corpuscular Volume 84.3, Mean Corpuscular Hemoglobin 27.4, Mean Corpuscular Hemoglobin Concent 32.5, Red Cell Distribution Width 17.2 H, Calcium Level 9.1 Microbiology Microbiology 04/12/17 Blood Culture - Final, Complete NO GROWTH AFTER 5 DAYS 04/12/17 Blood Culture - Final, Complete NO GROWTH AFTER 5 DAYS 04/12/17 Influenza Virus Type A Antigen - Final, Complete 04/12/17 Influenza Virus Type B Antigen - Final, Complete SOBEIDA BURRIS MD Apr 18, 2017 11:44
[2017-04-18] MEDS ORDERED: LISINOPRIL 10 MG TAB PO ONE (12:00)
[2017-04-18 14:00] VITALS: BP 136/79
[2017-04-18 16:47] LABS: CALCIUM OXALATE CRYSTALS SMALL
[2017-04-18] MEDS: LISINOPRIL 10 MG TAB PO SCH (21:11)
[2017-04-18 22:00] VITALS: BP 137/77
[2017-04-18] MEDS ORDERED: NYSTATIN 100,000 UNITS/GM TOPICAL PWD 15 GM TOP PRN (22:45)
[2017-04-19] MEDS: FUROSEMIDE 100 MG/10 ML VIAL (J1940) IV SCH (05:56)
[2017-04-19 06:00] VITALS: BP 148/77
[2017-04-19 06:41] LABS: MEAN CORPUSCULAR HEMOGLOBIN 27.4 pg (27.0-33.0); MEAN CORPUSCULAR HGB CONC 32.6 g/dl (32.0-36.5); MEAN CORPUSCULAR VOLUME 84.1 fl (80.0-96.0); RED CELL DISTRIBUTION WIDTH 17.2 % (11.5-14.5); WHITE BLOOD COUNT 6.6 10^3/uL (4.0-10.0)
[2017-04-19 07:03] LABS: ANION GAP 4 MEQ/L (8-16); BLOOD UREA NITROGEN 27 MG/DL (7-18); CALCIUM LEVEL 9.2 MG/DL (8.8-10.2); CARBON DIOXIDE LEVEL 34 MEQ/L (21-32); CHLORIDE LEVEL 100 MEQ/L (98-107); CREATININE FOR GFR 1.18 MG/DL (0.70-1.30); GLOMERULAR FILTRATION RATE > 60.0 (>42); GLUCOSE, FASTING 99 MG/DL (83-110); POTASSIUM SERUM 3.3 MEQ/L (3.5-5.1); SODIUM LEVEL 138 MEQ/L (136-145)
[2017-04-19] MEDS: HumaLOG INSULIN (NovoLOG) PER UNIT SC SCH ×4 (08:34→20:39)
[2017-04-19] MEDS: LISINOPRIL 10 MG TAB PO SCH ×2 (08:35→20:38)
[2017-04-19] MEDS: CARVedilol 3.125 MG TAB PO SCH ×2 (08:35→20:38)
[2017-04-19] MEDS: SENOKOT S TAB PO SCH ×2 (08:36→20:37)
[2017-04-19] MEDS: PRAVASTATIN 20 MG TAB PO SCH (08:36)
[2017-04-19] MEDS: OMEPRAZOLE 20 MG CAP PO SCH (08:36)
[2017-04-19] MEDS: LEVEMIR (INSULIN DETEMIR) 1 UNITS/0.01ML SC SCH (08:36)
[2017-04-19] MEDS: ASPIRIN 81 MG CHEW TABLET PO SCH (08:36)
[2017-04-19] MEDS: HEPARIN SOD (PORCINE) 5000 UNITS/ML VIAL SC SCH ×2 (08:37→20:38)
--- NOTE | 2017-04-19 11:30 | IPNPDOC ---
Subjective Date Seen The patient was seen on 04/19/17. Subjective Chief Complaint/HPI The patient is a 77-year-old male admitted with a reason for visit of Congestive Heart Failure. Events since last encounter no complaints this am . cumulative negative balance of over 15L at this point. No fever or chills, no chest pain or sob , no abdominal pain , nausea or vomiting or diarrhea. Objective Physical Examination General Exam: Positive: Alert, Cooperative, No Acute Distress Eye Exam: Positive: PERRLA, Conjunctiva & lids normal, EOMI, Negative: Sclera icteric ENT Exam: Positive: Atraumatic, Mucous membr. moist/pink, Pharynx Normal Neck Exam: Positive: Supple, Negative: JVD, thyromegaly Chest Exam: Positive: Rales, Diminished Heart Exam: Positive: Rate Normal, Regular Rhythm, Normal S1, Normal S2, Negative: Murmurs, Rubs Telemetry: Positive: No significant arrhythmia Abdomen Exam: Positive: Normal bowel sounds, Soft, Negative: Tenderness, Hepatospenomegaly Extremity Exam: Positive: Edema Skin Exam: Positive: Nl turgor and temperature, Negative: Rash, Breakdown Assessment /Plan Problems (1) Systolic CHF Status: Acute Problem Text: acute systolic CHF with EF of 30% will change to po lasix. Echo shows regional wall motion abnormality so possibly has underlying obstructive coronary artery disease with prior silent AMI. will need to follow up with sleeve machine tender. will continues with lisinopril and coreg and maximize as tolerated. (2) KYA (acute kidney injury) Status: Resolved Problem Text: due to cardiorenal disease due to CHF and fluid overload improved after aggressive diuresis. (3) Pulmonary hypertension Status: Chronic Problem Text: possibly secondary to left sided heart failure. (4) Right heart failure Status: Acute Response to Treatment: Improving Problem Text: continue with diuresis. (5) Hyperlipidemia Status: Chronic Problem Text: continue statin (6) Morbid obesity Status: Chronic (7) Hypertension Status: Chronic Problem Text: will stop calcium channel blockers. started on lisinopril and coreg will try to increase ACEi and betablocker as tolerated. (8) Diabetes Status: Chronic Plan/VTE VTE Prophylaxis Ordered?: Yes VS, I&O, 24H, Fishbone Vital Signs/I&O Vital Signs Date Time Temp Pulse Resp B/P (MAP) Pulse Ox O2 Delivery O2 Flow Rate FiO2 04/19/17 08:35 148/77 04/19/17 08:35 76 04/19/17 06:00 96.9 20 94 Room Air I&O- Last 24 Hours up to 6 AM 04/20/17 06:00 Intake Total 300 ml Output Total 1000 ml Balance -700 ml Laboratory Data 24H LABS Laboratory Tests 2 04/18/17 12:05: Bedside Glucose (Misc Panel) 161H 04/18/17 16:22: Urine Appearance CLEAR, Urine Color YELLOW, Urine pH 7.0, Urine Specific [place] 1.006, Urine Protein 1+H, Urine Glucose (UA) 1+H, Urine Ketones NEGATIVE , Urine Urobilinogen 0.2, Urine Bilirubin NEGATIVE, Urine Leukocyte Esterase NEGATIVE, Urine Blood 3+H, Urine Nitrite NEGATIVE, Urine WBC (Auto) 19H, Urine RBC (Auto) TNTCH, Urine Hyaline Casts (Auto) 0, Urine Bacteria (Auto) NEGATIVE, Urine Squamous Epithelial Cells 0, Urine Calcium Oxalate Cryst (Auto) SMALL, Urine Sperm (Auto) 04/18/17 16:44: Bedside Glucose (Misc Panel) 177H 04/18/17 20:28: Bedside Glucose (Misc Panel) 127H 04/19/17 06:20: Anion Gap 4L, Glomerular Filtration Rate > 60.0, Blood Urea Nitrogen 27H, Creatinine 1.18, Sodium Level 138, Potassium Level 3.3L, Chloride Level 100, Carbon Dioxide Level 34H, Calcium Level 9.2, Magnesium Level 2.0 CBC/BMP Laboratory Tests 04/19/17 06:20 Red Blood Count 4.64, Mean Corpuscular Volume 84.1, Mean Corpuscular Hemoglobin 27.4, Mean Corpuscular Hemoglobin Concent 32.6, Red Cell Distribution Width 17.2 H, Calcium Level 9.2 Microbiology Microbiology 04/12/17 Blood Culture - Final, Complete NO GROWTH AFTER 5 DAYS 04/12/17 Blood Culture - Final, Complete NO GROWTH AFTER 5 DAYS 04/12/17 Influenza Virus Type A Antigen - Final, Complete 04/12/17 Influenza Virus Type B Antigen - Final, Complete SOBEIDA BURRIS MD Apr 19, 2017 11:30
[2017-04-19] MEDS: FUROSEMIDE 80 MG TAB PO SCH (17:05)
[2017-04-19 22:00] VITALS: BP 134/78
[2017-04-20 06:00] VITALS: BP 159/83
[2017-04-20] MEDS: HumaLOG INSULIN (NovoLOG) PER UNIT SC SCH ×2 (07:30→08:50)
[2017-04-20] MEDS: PRAVASTATIN 20 MG TAB PO SCH (08:44)
[2017-04-20] MEDS: FUROSEMIDE 80 MG TAB PO SCH (08:45)
[2017-04-20] MEDS: SENOKOT S TAB PO SCH (08:45)
[2017-04-20] MEDS: CARVedilol 3.125 MG TAB PO SCH (08:45)
[2017-04-20 08:46] VITALS: BP 139/71
[2017-04-20] MEDS: OMEPRAZOLE 20 MG CAP PO SCH (08:46)
[2017-04-20] MEDS: LISINOPRIL 10 MG TAB PO SCH (08:46)
[2017-04-20] MEDS: ASPIRIN 81 MG CHEW TABLET PO SCH (08:46)
[2017-04-20] MEDS: HEPARIN SOD (PORCINE) 5000 UNITS/ML VIAL SC SCH (08:51)
[2017-04-20] MEDS: LEVEMIR (INSULIN DETEMIR) 1 UNITS/0.01ML SC SCH (08:51)
[2017-04-20] MEDS ORDERED: CORE6.25 PO (09:29)
[2017-04-20] MEDS ORDERED: INSUDET SC (09:29)
[2017-04-20] MEDS ORDERED: LISI10TA4 PO (09:29)
[2017-04-20] MEDS ORDERED: FURO80TA2 PO (09:29)
[2017-04-20] MEDS ORDERED: CARVedilol 6.25 MG TAB PO SCH (21:00)
--- NOTE | 2017-05-02 09:35 | DSES ---
DATE OF ADMISSION: 04/12/2017 DATE OF DISCHARGE: 04/20/2017 PRIMARY CARE PROVIDER: Dr. Edu Valentine. DISCHARGE DIAGNOSES: Acute diastolic congestive heart failure with ejection fraction (EF) of 30%. Possible underlying coronary artery disease. Acute kidney injury thought to be due to cardiorenal disease, improved. Pulmonary hypertension. Right-sided heart failure. Hyperlipidemia. Morbid obesity. Hypertension. Diabetes. History of gastrointestinal bleeding 2006 with history of gastric ulcer. DISCHARGE MEDICATIONS: - Coreg 6.25 mg by mouth twice a day - Lasix 80 mg by mouth twice a day - lisinopril 10 mg by mouth twice a day - Tylenol 650 mg by mouth daily - acetaminophen PM extra strength 500/25m one tablet by mouth at bedtime. - aspirin 81 mg by mouth daily - metformin 100 mg by mouth at bedtime - omeprazole 20 mg by mouth daily - Prevacid 90 by mouth by mouth daily - Levemir insulin 30 units subcutaneously daily HOSPITAL COURSE: This is a 77-year-old male who presented to the hospital with increasing shortness of breath. For several weeks and increasing weight over several months. On the day of admission, he became acutely short of breath, worse with movement, unable to get out of porch and so came to the hospital for evaluation. The patient was found to be fluid overloaded and diagnosed with decompensated congestive heart failure. The patient had an echocardiogram in the hospital which showed an ejection fraction of 30% with multiple regional wall motion abnormalities of the right and left ventricle. There was grade 2 diastolic dysfunction. There was severe elevation of right ventricular pressure with moderate to severe pulmonary hypertension and right-sided heart failure. There was moderate tricuspid regurgitation. The patient was started on aggressive diuresis. His home medications of verapamil, which he used to take for hypertension was changed to lisinopril and Coreg and with aggressive diuresis, his symptoms started improving. Initially, he was in acute renal failure and with diuresis his renal function improved. In the hospital, the patient lost about 14 kg of weight. On the day of discharge, he did not have any complaints. His vitals were stable. His was functionally at his baseline. VITAL SIGNS: Temperature 96.7, pulse 80, respiratory rate 18, blood pressure 139/71, pulse oximetry 97% in room air. GENERAL: The patient awake, alert, oriented times three sitting up in bed in no acute distress. HEENT: Normocephalic, atraumatic. Moist mucous membranes. Anicteric eyes. CHEST: A few basilar crackles present. Overall, breath sounds are decreased. CARDIOVASCULAR: S1, S2 regular. There is a soft diastolic murmur. ABDOMEN: Soft, nontender. Bowel sounds present. EXTREMITIES: 1-2+ edema present. LABORATORY DATA: WBC 6.6, hemoglobin 12.7, platelet 343. Sodium 138, potassium 3.3, replaced, chloride 100, bicarbonate 34, BUN 27, creatinine 1.18, glucose 99, calcium 9.2, magnesium 2. Blood cultures no growth. Influenza was negative. Chest x-ray showed interstitial edema. Small bilateral pleural effusions prior to diuresis. DISPOSITION: The patient is discharged home in stable condition. DISCHARGE INSTRUCTIONS: The patient to followup with primary care provider in 1 week. The patient referred to Dr. Watts for further evaluation of congestive heart failure and possible coronary artery disease. Diet: 2 gram sodium diet. Fluid restriction 1.8 liters. Activity as tolerated.
== END 2017-04-20 10:07 | disposition home or self-care (01) | DRG 292 ==
LOC: M ED 07:30 → EDBD 07:30 → M ED INP 10:22 → M PCU 04-15 16:11 → M MSPAV 04-17 14:43
PROVIDERS: ADMIT Internal Medicine; ATTEND Internal Medicine
DX: I11.0 Hypertensive heart disease with heart failure (principal); N17.9 Acute kidney failure, unspecified; I50.21 Acute systolic (congestive) heart failure; E11.9 Type 2 diabetes mellitus without complications; E66.01 Morbid (severe) obesity due to excess calories; F17.210 Nicotine dependence, cigarettes, uncomplicated; E78.5 Hyperlipidemia, unspecified; Z79.899 Other long term (current) drug therapy; Z79.82 Long term (current) use of aspirin; Z79.4 Long term (current) use of insulin; E78.00 Pure hypercholesterolemia, unspecified; I27.20 Pulmonary hypertension, unspecified

== ENCOUNTER 2017-06-25 09:59 | Inpatient (IN) | payer MEDICARE ==
[~2017-06-25] VITALS: Ht 182.9 cm; Wt 99.3 kg
[~2017-06-25 09:59] MED LIST changes: +ACET25TA12 PO; +ACET650T3 PO; +ASPI81CH PO; +CORE6.25 PO; +FURO80TA2 PO; +INSUDET SC; +JANU50TA8 PO; +LISI10TA4 PO; +METF10004 PO; +OMEP40CA2 PO; +PRAV80TA2 PO; +VERA180C PO
[2017-06-25 11:04] VITALS: BP 181/95
[2017-06-25 11:16] LABS: MEAN CORPUSCULAR HGB CONC 33.9 g/dl (32.0-36.5); MEAN CORPUSCULAR VOLUME 88.5 fl (80.0-96.0); PLATELET COUNT, AUTOMATED 367 10^3/uL (150-450); RED CELL DISTRIBUTION WIDTH 22.7 % (11.5-14.5); WHITE BLOOD COUNT 8.4 10^3/uL (4.0-10.0)
[2017-06-25] MEDS ORDERED: LISI10TA4 PO (11:19)
[2017-06-25] MEDS ORDERED: INSUDET SC (11:19)
[2017-06-25] MEDS ORDERED: CARV6.25 PO (11:19)
[2017-06-25] MEDS ORDERED: FURO80TA2 PO (11:19)
[2017-06-25 11:46] LABS: ALBUMIN 3.2 GM/DL (3.2-5.2); ALBUMIN/GLOBULIN RATIO 0.58 (1.00-1.93); ALKALINE PHOSPHATASE 414 U/L (45-117); ALT/SGPT 34 U/L (12-78); ANION GAP 11 MEQ/L (8-16); AST/SGOT 75 U/L (7-37); BILIRUBIN,TOTAL 4.9 MG/DL (0.2-1.0); BLOOD UREA NITROGEN 16 MG/DL (7-18); CARBON DIOXIDE LEVEL 28 MEQ/L (21-32); CHLORIDE LEVEL 98 MEQ/L (98-107); CREATININE FOR GFR 1.35 MG/DL (0.70-1.30); GLOMERULAR FILTRATION RATE 54.8 (>42); GLUCOSE, FASTING 124 MG/DL (83-110); MAGNESIUM LEVEL 1.8 MG/DL (1.8-2.4); POTASSIUM SERUM 3.1 MEQ/L (3.5-5.1); SODIUM LEVEL 137 MEQ/L (136-145); TOTAL PROTEIN 8.7 GM/DL (6.4-8.2)
[2017-06-25] MEDS ORDERED: DEXTROSE 50% 50 ML SYRINGE IV PRN (12:00)
[2017-06-25] MEDS ORDERED: GLUCAGON FOR INJ 1 MG VIAL (J1610) SC PRN (12:00)
[2017-06-25] MEDS: HumaLOG INSULIN (NovoLOG) PER UNIT SC SCH ×3 (12:00→21:00)
[2017-06-25] MEDS ORDERED: GLUCOSE 4 GM CHEW TABLET PO PRN (12:00)
[2017-06-25] MEDS: CARVedilol 6.25 MG TAB PO SCH ×2 (12:19→21:27)
[2017-06-25] MEDS: ASPIRIN 81 MG ENTERIC TAB PO SCH (12:19)
[2017-06-25] MEDS: ISOSORBIDE DIN (ISORDIL) 10 MG TAB PO SCH ×3 (12:20→21:27)
[2017-06-25] MEDS: ENOXAPARIN 40 MG/0.4 ML SYRINGE (J1650) SC SCH (12:21)
[2017-06-25] MEDS: FUROSEMIDE 40 MG/4 ML VIAL (J1940) IV SCH ×4 (12:21→23:25)
[2017-06-25] MEDS: **hydrALAZINE** 10 MG TAB PO SCH ×3 (12:30→21:28)
[2017-06-25] MEDS ORDERED: POTASSIUM CHLORIDE 10 MEQ SR TABLET PO ONE ×2 (12:30→15:00)
--- NOTE | 2017-06-25 13:30 | HPE ---
DATE OF ADMISSION: 06/25/2017 REASON FOR ADMISSION: 1. Acute on chronic systolic and diastolic heart failure. 2. New onset jaundice. HISTORY OF PRESENT ILLNESS: Mr. Alexei Malcolm is a pleasant 77-year-old man with hospitalization for first time heart failure to [facility] on 04/12/2017 until 04/20/2017 where he was found to have acute systolic and diastolic heart failure. He is suspected of having coronary artery disease on the basis of atrial wall motion abnormalities seen on echocardiogram. During his hospitalization, he had acute kidney injury, which resolved, right heart failure, severe pulmonary hypertension, systemic hypertension, obesity, hyperlipidemia, and type 2 diabetes. He initially presented to the hospital with increasing shortness of breath for several weeks and progressive weight gain over several months. The patient had an echocardiogram Doppler at [facility] on 04/14/2017, which showed normal left ventricle and diastolic dimension and normal left ventricle wall thickness. Akinesis of the inferior basal LV segment with severe hypokinesis of the mid inferior segment and moderate global LV hypokinesis. Severe reduction in overall LV systolic function (left ventricular ejection fraction of 30% by visual estimate), grade 2 LV diastolic dysfunction; suggestive of elevated mean left atrial pressure, B-notch on mitral valve inflow pattern suggestive of elevated left ventricular end diastolic pressure (LVEDP). Normal mitral leaflets with moderate mitral regurgitation. Normal right ventricle size with moderate reduction in overall RV systolic function. Moderate tricuspid regurgitation with structurally normal-appearing cuspid leaflets. Suggestive of severe elevation of estimated right ventricle systolic pressure. Inferior vena cava plethora suggestive of elevated central venous pressure of at least 20 mmHg. Moderately technically difficult echocardiogram. CARDIOVASCULAR SYMPTOMS: Dyspnea: Since discharge from the hospital on 04/20/2017, the patient reports progressive weight loss and progressive improvement in exertional dyspnea. He reports that now he can walk up to three city blocks without dyspnea. He reports some exertional dyspnea if he attempts above ordinary physical exertion. No orthopnea or paroxysmal nocturnal dyspnea. Mild bilateral leg edema. He reports nocturnal three to four times per night. No chest, neck, jaw, upper extremity, epigastric pressure, tightness, squeezing or heaviness with or without exertion. No orthostatic lightheadedness. No presyncope or syncope. No palpitations. No embolic events. No intermittent claudication. No known adverse drug reactions. MEDICATIONS PRIOR TO ADMISSION: - omeprazole 20 mg daily - metformin 1000 mg daily - pravastatin 80 mg at night - carvedilol 6.25 mg twice a day - furosemide 80 mg by mouth twice a day - Levemir Flex-Touch insulin as directed - Lisinopril 10 mg daily OTHER PAST MEDICAL AND SURGICAL HISTORY: 1. Systemic hypertension. 2. Hypercholesterolemia. 3. Obesity. 4. Type 2 diabetes, on insulin. 5. Systolic and diastolic heart failure, as noted above. 6. Right bundle branch block. 7. Abnormal ECG. No previous cardiac catheterization. PAST SURGICAL HISTORY: Previous surgery for a stomach ulcer. FAMILY HISTORY: Father of a heart attack at age 62. Mother of heart disease at age 61. One brother at age 81 from cancer. Another brother with heart disease. Another brother who of heart attack. Another brother , cause unknown. One sister in her 60s from cancer. Another sister from lung cancer. Another sister with diabetes. SOCIAL HISTORY: Single. Lives alone. Retired. Independent with all activities of daily living. Recovered alcoholic. No alcohol. Currently smokes a half of a pack of cigarettes per day. He began smoking at age 9. REVIEW OF SYSTEMS: Wears glasses. History of stomach ulcers. Recent jaundice. Nocturia three to four times per night. No anxiety, depression, or panic disorder. Easy bleeding/bruising. All other 10 point review of systems negative. PHYSICAL EXAMINATION: Pleasant, obese, man who appears his chronological age who is not in any respiratory or psychological distress. Height 72 inches. Weight 240 pounds. Body Mass Index (BMI) 32.5. Pulse 67 and regular. Blood pressure 160/81 (right arm, sitting). No dysmorphic features or deformities. He appears somewhere between obese and morbidly obese by visual assessment. Scleral icterus of both eyes. No xanthelasmas of the eyelids. Edentulous. Palate normal. Oral mucosa is moist. Skin is without pallor or cyanosis. Trachea midline. Thyroid normal in size. Jugular venous pulsations were at 15 cm above the sternal angle with the patient sitting up at 90 degrees. Respiratory rate normal. Chest expansion was symmetrical. No crackles or wheezes. Increased AP diameter of the chest. No heaves, thrills or palpable heart sounds. No palpable apex beat. First heart sound normal. Second heart sound was mildly split. F3 present. No S4. No pericardial friction or rubs. Grade 1 pansystolic murmur present at the apex and lower left parasternal border. Carotids were normal in flow and contour and without bruits. No carotid bruits. Abdominal aorta not palpable but difficult to palpate due to abdominal obesity. Femoral pulses normal. Pedal pulses normal bilaterally. 2 mm pitting edema present at mid and distal tibial level bilaterally. No varicose veins. No clubbing, cyanosis or splinter hemorrhages. Abdomen was soft and nontender with normal bowel sounds. No abdominal masses palpable. No hepatosplenomegaly. Liver span not measurable due to abdominal obesity. Stool for occult blood not presently indicated. Walks with a normal gait. No kyphosis or scoliosis. Normal gross motor strength and tone. Skin icterus diffusely present. No other skin lesions or pallor. Oriented to person, place and time. Mood and affect normal. Electrocardiogram obtained in my office 06/25/2017 shows sinus rhythm, 74 beats per minute, right bundle branch block, QRST 150 milliseconds, right ventricular hypertrophy, ST-T abnormalities (right bundle branch block, right ventricular hypertrophy, nonspecific). Decreased heart rate and old PVCs compared with 04/13/2017 at 1027 hours. PA and lateral chest x-ray on 04/14/2017 report was reviewed and reported interstitial pulmonary edema and small bilateral pleural effusions. Enlarged cardiac silhouette. Normal pulmonary vasculature. Laboratory work 06/25/2017 was reviewed. WBC 8.4, hemoglobin 13.0, hematocrit 38.4, platelets 367. Complete blood count and serum magnesium on 06/25/2017 results presently pending. Laboratory work from 04/19/2017 showed glucose 99, BUN 27, creatinine 1.18, sodium 138, potassium 3.3, chloride 100, CO2 of 34, calcium 9.2, estimated GFR greater than 60, magnesium 2.0. I have independently visualized the patient's PA and lateral chest x-ray acquired on 06/25/2017 at 10:50 a.m. It shows cardiomegaly. No interstitial or alveolar infiltrates. No pleural effusion. Probable mild enlargement of the pulmonary arteries. Some calcification in the aortic arch. Borderline pulmonary vascular redistribution. ASSESSMENT AND PLAN: 1. Ischemic cardiomyopathy. The diagnosis of ischemic cardiomyopathy is currently based on presence of regional wall motion abnormalities observed on the echocardiogram Doppler 04/14/2017. No previous cardiac catheterization. Currently NYHA functional class II. Decompensated on examination. I am concerned that the jaundice is caused by hepatic congestion and therefore felt that he would be best managed by inpatient hospitalization for first time workup of new onset jaundice. The patient was admitted to hospital from my office today (progressive care unit (PCU) status) and was placed on furosemide IV. Lisinopril was discontinued and the plan is to place him on Entresto after he has been off Lisinopril for at least 36 hours. Continue carvedilol 6.25 mg twice a day. Once the patient has become compensated and is a stable outpatient, the plan will be to refer him for elective left and right heart catheterization with selective angiography. If indeed the patient is confirmed to have ischemic cardiomyopathy then he will be a candidate for a biventricular AICD. Hydralazine/long-acting organic nitrates will be added. He will be seen by cardiac rehabilitation. He will be on an 1800 mL per day oral fluid restriction and a 2.5 gram sodium restriction. Cardiac rehabilitation will be consulted. 2. Acute on chronic systolic and diastolic heart failure. As per problem #1. 3. Atherosclerotic heart disease of [place] coronary artery without angina. This diagnosis is made on the basis of what appears to be ischemic cardiomyopathy based on regional wall motional abnormalities on the previous echocardiogram Doppler. He will be started on valsartan. He will undergo a cardiac catheterization electively as an outpatient if he is agreeable once he is stabilized with regard to heart failure as outpatient status. Aspirin 81 mg daily to be added. 4. Systemic hypertension. Target blood pressure less than 120/80. The patient's blood pressure is above target. He will be admitted to the hospital for a course of IV furosemide. Lisinopril will be switched over to Valsartan. After he has been off Lisinopril for at least 36 hours, the plan is to switch to Valsartan/sacubitril. Continue carvedilol at the current dosage. Hydralazine/organic nitrates will be added. 5. Nonrheumatic mitral valve regurgitation. Moderate mitral regurgitation likely secondary to ischemic cardiomyopathy. Structurally normal mitral leaflets. 6. Hyperlipidemia, unspecified. The patient will be placed on a DASH diet. Pravastatin will be held because of jaundice. 7. Secondary pulmonary artery hypertension. Severe pulmonary hypertension, decompensated on examination. Decreased RV systolic function. Pulmonary hypertension is likely primarily related to left heart failure. I suspect that he might have sleep apnea and if so this too could be contributory. Furthermore, he has a long-standing smoking history and may have some underlying chronic obstructive pulmonary disease (COPD) causing secondary pulmonary hypertension as well. He will be placed on IV furosemide. 8. Right heart failure due to left heart failure, decompensated RV heart failure secondary to left heart failure. Management of heart failure as above. 9. Nonrheumatic tricuspid valve regurgitation. Moderate tricuspid regurgitation with structurally normal five cuspid leaflets. Secondary to severe pulmonary hypertension. 10. Unspecified jaundice of new onset. Likely secondary to hepatic congestion secondary to right heart failure. I have ordered a liver ultrasound and complete medical profile. I have asked Dr. Brice Pickett to see the patient in consultation for further evaluation and management of new onset jaundice. 11. Abnormal ECG. Electrocardiogram as described above. 12. Right bundle branch block with right ventricle hypertrophy. No presyncope or syncope. The patient qualifies for a biventricular AICD if indeed he is confirmed to have ischemic cardiomyopathy by cardiac catheterization. 13. Nicotine dependence with cigarette smoking. Ongoing cigarette smoking. The patient is encouraged to quit smoking. Health hazards of tobacco use were reviewed with the patient, including, but not all inclusive of COPD, lung cancer, atherosclerotic disease, such as carotid artery disease, coronary artery disease, peripheral arterial disease. The patient does not wish to quit smoking at this time. Time spent on smoking cessation counseling was 30 minutes. 14. Obesity. Body Mass Index (BMI) 32.5. Associated conditions: Systemic hypertension, hyperlipidemia, type 2 diabetes. The patient will be on a DASH diet while in the hospital. 15. Type 2 diabetes. I have requested consultation from the hospitalist, Dr. Brice Pickett, to evaluate and manage the patient's diabetes while he is in the hospital. Copy to: Dr. Orlando Salinas
[2017-06-25 14:20] VITALS: BP 146/68
[2017-06-25] MEDS: VALSARTAN 40MG TABLET (DIOVAN) PO SCH ×2 (14:21→21:28)
--- NOTE | 2017-06-25 14:47 | REP ---
PA and lateral chest: Comparison is 04/14/2017. The previous bilateral pleural effusions have improved. There are small pleural effusions on the study today, decreased in size. The previous pulmonary edema has resolved. There is interstitial coarsening on the study today, decreased from the prior study. This could be chronic or acute or subacute. Cardiac size is enlarged, unchanged. The laz, mediastinum, and bony thorax are unremarkable. Impression: Small pleural effusions, decreased from the prior study. Mild interstitial coarsening, decreased from the prior study, acute versus chronic versus acute on chronic. Signed by Ahsan Warren MD 06/25/2017 02:39 P
--- NOTE | 2017-06-25 15:41 | REP ---
Right upper quadrant sonography: History: Elevated bilirubin. Jaundice. Evaluate liver ducts. Findings: Scan quality is inhibited to some degree by bowel gas. A small right pleural effusion is noted. Liver texture is coarse. There is evidence fatty infiltration of the liver. No focal liver lesion is seen. No intrahepatic biliary ductal dilation is observed. The common bile duct is not dilated either measuring 0.5 cm in greatest diameter. The gallbladder is partially contracted with some sludge suspected in the neck of the gallbladder. This was observed moving with changes in position. There is no evidence of ascites. There is a 7 mm shadowing echogenic focus in the lower pole of the right kidney consistent with an intrarenal calculus. No hydronephrosis is seen. The right kidney measures 11.0 x 7.1 x 6.9 cm. Impression: 7 mm calculus lower pole left kidney. Sludge in the gallbladder. Evidence of fatty infiltration of the liver and coarse liver texture. No biliary ductal dilation is observed. Signed by Chandana Alonzo MD 06/25/2017 04:03 P
[2017-06-25 16:26] VITALS: BP 130/62
--- NOTE | 2017-06-25 16:35 | CR.PDOC ---
[facility] Consultation Consultation DATE OF CONSULTATION: 06/25/17 PRIMARY CARE PHYSICIAN: Dr. Edu Valentine REFERRING PROVIDER: Dr. Watts ATTENDING PHYSICIAN: Dr. Watts REASON FOR CONSULTATION/CHIEF COMPLAINT: Elevated bilirubin, management of diabetes HISTORY OF PRESENT ILLNESS: This is a 77-year-old male past medical history of systolic heart failure EF of 30%, right-sided heart failure, pulmonary hypertension, insulin-dependent diabetes mellitus, hypertension, history of GI bleed in 2006, obesity who presents from Dr. Watts's office after noted to be jaundiced. Patient has been admitted with Dr. Watts for acute systolic heart failure, and is currently being diuresed. Patient denies any changes in skin color. Denies abdominal pain. No nausea/ vomiting. No acute changes since his recent hospitalization in April where he was admitted for acute systolic heart failure and diuresed. ALLERGIES: Please see below. HOME MEDICATIONS: Please see below. PAST MEDICAL HISTORY: As per HPI PAST SURGICAL HISTORY: Surgical lesion removed from scrotum FAMILY HISTORY: Noncontributory SOCIAL HISTORY: Smokes a third of a pack per day 70 years. No alcohol or illicit drug use. REVIEW OF SYSTEMS: HEENT: Denies sore throat/headache CARDIOVASCULAR: Denies chest pain/palpitations RESPIRATORY: Denies shortness of breath/cough GASTROINTESTINAL: denies nausea/vomiting GENITOURINARY: Denies dysuria/urinary urgency. MUSCULOSKELETAL: Denies myalgias/arthralgias NEUROLOGICAL: Denies any focal weakness PHYSICAL EXAMINATION: VITAL SIGNS: Please see below. General: No acute distress, laying comfortably in bed. Notable jaundice HEENT: Moist mucous membranes. Neck: No JVD or lymphadenopathy Cardiac: RRR, No murmurs Pulm: Clear to auscultation b/l. No wheezing, rhonchi Abd: NT/ND + BS Ext: 1+ pitting edema bilateral lower extremities. No cyanosis LABORATORY DATA: Please see below. Images: Abdominal ultrasound 06/25/17 7 mm calculus lower pole left kidney. Sludge in the gallbladder. Evidence of fatty infiltration of the liver and coarse liver texture. No biliary ductal dilation is observed. ASSESSMENT/PLAN: 1. Hyperbilirubinemia- likely secondary to hepatic congestion from his underlying systolic heart failure/right heart failure. We will obtain a liver profile. Abdominal ultrasound (see above). Follow-up hepatitis panel. Acetaminophen level negative. MRCP ordered. Consider gastroenterology consultation if no significant improvement with diuresis. 2. Insulin-dependent diabetes mellitus- continue Levemir. Sliding scale insulin. 3. Acute decompensated systolic heart failure - management per Dr. Watts 4. History of hypertension- on valsartan, Coreg 5. Secondary pulmonary artery hypertension- patient with severe pulmonary hypertension, likely decompensated- currently being diuresed the cardia 6. Tobacco abuse- counseled on cessation. Refusing nicotine patch 7. Obesity DVT prophylaxis: Enoxaparin Vital Signs/I&O Vital Signs Date Time Temp Pulse Resp B/P (MAP) Pulse Ox O2 Delivery O2 Flow Rate FiO2 06/25/17 14:21 146/68 06/25/17 14:20 78 06/25/17 11:04 98.2 18 98 Room Air I&O- Last 24 Hours up to 6 AM 06/26/17 06:00 Intake Total 240 ml Output Total 475 ml Balance -235 ml Laboratory Data Labs 24H Laboratory Tests 2 06/25/17 11:07: Nucleated Red Blood Cells % (auto) 0.0, Anion Gap 11, Glomerular Filtration Rate 54.8, Blood Urea Nitrogen 16, Creatinine 1.35H, Sodium Level 137, Potassium Level 3.1L, Chloride Level 98, Carbon Dioxide Level 28, Calcium Level 9.0, Aspartate Amino Transf (AST/SGOT) 75H, Alanine Aminotransferase (ALT/SGPT) 34, Alkaline Phosphatase 414H, Total Bilirubin 4.9H, Total Protein 8.7H, Albumin 3.2, Magnesium Level 1.8, YV-Hjc-A-Type Natriuretic Peptide 7757H, Albumin/Globulin Ratio 0.58L, Acetaminophen Level < 2.0L CBC/BMP Laboratory Tests 06/25/17 11:07 Red Blood Count 4.34, Mean Corpuscular Volume 88.5, Mean Corpuscular Hemoglobin 30.0, Mean Corpuscular Hemoglobin Concent 33.9, Red Cell Distribution Width 22.7 H, Calcium Level 9.0, Aspartate Amino Transf (AST/SGOT) 75 H, Alanine Aminotransferase (ALT/SGPT) 34, Alkaline Phosphatase 414 H, Total Bilirubin 4.9 H, Total Protein 8.7 H, Albumin 3.2 Allergies Coded Allergies: No Known Drug Allergy (Verified Allergy, Unknown, 10/13/12) Home Medications Scheduled (Aspirin) 81 Mg Chw, 81 MG PO DAILY, (Reported) (Acetaminophen Pm Extra St 500-25 mg) 1 Tab Tab, 1 TAB PO QHS, (Reported) Carvedilol (Carvedilol) 6.25 Mg Tab, 6.25 MG PO BID, (Reported) Furosemide (Furosemide) 80 Mg Tab, 80 MG PO QPM, (Reported) TAKES AT 1700 Insulin Detemir (Levemir) 1 Units/0.01 Ml Susp, 30 UNITS SC DAILY, (Reported) Lisinopril (Lisinopril) 10 Mg Tab, 10 MG PO QPM, (Reported) TAKES AT 1700 Metformin Hydrochloride (Metformin HCl) 1,000 Mg Tab, 1,000 MG PO QHS, (Reported ) Omeprazole (Omeprazole) 20 Mg Cap, 20 MG PO QPM, (Reported) TAKES AT 1700 Pravastatin Sodium (Pravastatin Sodium) 80 Mg Tab, 80 MG PO QPM, (Reported) TAKES AT 1700 JOSE ELIAS METZ MD Jun 25, 2017 16:35
[2017-06-25 16:47] LABS: BILIRUBIN,DIRECT 3.6 MG/DL (0.0-0.2)
[2017-06-25 20:00] VITALS: BP 115/55
[2017-06-25] MEDS: metFORMIN (GLUCOPHAGE) 1000 MG TABLET PO SCH (21:27)
[2017-06-26] VITALS (9 sets, daily range): BP systolic 102–138; BP diastolic 53–64
[2017-06-26] MEDS: FUROSEMIDE 40 MG/4 ML VIAL (J1940) IV SCH ×5 (04:29→20:00)
[2017-06-26 05:31] LABS: ALBUMIN 2.9 GM/DL (3.2-5.2); ALBUMIN/GLOBULIN RATIO 0.58 (1.00-1.93); BILIRUBIN,DIRECT 3.2 MG/DL (0.0-0.2); BILIRUBIN,TOTAL 4.3 MG/DL (0.2-1.0); CALCIUM LEVEL 8.7 MG/DL (8.8-10.2); CREATININE FOR GFR 1.39 MG/DL (0.70-1.30); POTASSIUM SERUM 3.2 MEQ/L (3.5-5.1); TOTAL PROTEIN 7.9 GM/DL (6.4-8.2)
[2017-06-26] MEDS: ENOXAPARIN 40 MG/0.4 ML SYRINGE (J1650) SC SCH (08:29)
[2017-06-26] MEDS: VALSARTAN 40MG TABLET (DIOVAN) PO SCH (08:30)
[2017-06-26] MEDS: ASPIRIN 81 MG ENTERIC TAB PO SCH (08:30)
[2017-06-26] MEDS: ISOSORBIDE DIN (ISORDIL) 10 MG TAB PO SCH ×3 (08:30→21:42)
[2017-06-26] MEDS: CARVedilol 6.25 MG TAB PO SCH (08:30)
[2017-06-26] MEDS: **hydrALAZINE** 10 MG TAB PO SCH ×3 (08:30→22:19)
[2017-06-26] MEDS: LEVEMIR (INSULIN DETEMIR) 1 UNITS/0.01ML SC SCH (08:31)
[2017-06-26] MEDS: HumaLOG INSULIN (NovoLOG) PER UNIT SC SCH ×4 (08:31→21:00)
[2017-06-26] MEDS ORDERED: POTASSIUM CHLORIDE 10 MEQ SR TABLET PO ONE ×2 (09:00→13:00)
[2017-06-26] MEDS ORDERED: LEVEMIR (INSULIN DETEMIR) 1 UNITS/0.01ML SC SCH (09:00)
--- NOTE | 2017-06-26 11:19 | REP ---
MRCP EXAM: MRCP exam is accomplished utilizing multiple heavily T2-weighted sequences in the axial and coronal planes. Gallbladder is very mildly distended with no intraluminal filling defect identified. There is no intrahepatic biliary dilatation. There is no extrahepatic biliary dilatation. Common bile duct is normal in caliber with maximum of 6 mm. No filling defect or stricture is visualized. Pancreas duct is not dilated. There is mild perihepatic fluid. Note is also made of a right pleural effusion. There is a small cyst in the lower pole of right kidney. IMPRESSION: No biliary abnormality visualized as discussed above. Mild perihepatic fluid. Small right pleural effusion. Signed by Ahsan Valerio MD 06/27/2017 09:08 A
[2017-06-26] MEDS: ENTRESTO 24-26MG TABLET (SACUBITRIL/VALSARTAN) PO SCH ×2 (11:49→21:41)
[2017-06-26] MEDS ORDERED: GASTROGRAFIN SOLUTION 30ML PO ONE (14:30)
--- NOTE | 2017-06-26 14:42 | IPNPDOC ---
Text Note Date of Service The patient was seen on 06/26/17. NOTE Subjective: Pt feels well. Denies CP/SOB/palpitation. No N/V/Abd pain. PHYSICAL EXAMINATION: VITAL SIGNS: Please see below. General: No acute distress, laying comfortably in bed. Notable jaundice HEENT: Moist mucous membranes. Neck: No JVD or lymphadenopathy Cardiac: RRR, No murmurs Pulm: Coarse crackles b/l bases b/l. No wheezing, rhonchi Abd: NT/ND + BS Ext: 1+ pitting edema bilateral lower extremities. No cyanosis LABORATORY DATA: Please see below. Images: Abdominal ultrasound 06/25/17 7 mm calculus lower pole left kidney. Sludge in the gallbladder. Evidence of fatty infiltration of the liver and coarse liver texture. No biliary ductal dilation is observed. MRCP 06/26/17 IMPRESSION: No biliary abnormality visualized as discussed above. Mild perihepatic fluid. Small right pleural effusion. ASSESSMENT/PLAN: 1. Hyperbilirubinemia- likely secondary to hepatic congestion from his underlying systolic heart failure/right heart failure. We will obtain a liver profile. Abdominal ultrasound (see above). Follow-up hepatitis panel. Acetaminophen level negative. MRCP (see above). Discussed case with Dr. Cobian, who believes that this is likely hepatic congestion from the heart failure and likely underlying cirrhosis, and recommends a CT abdomen and pelvis to evaluate for a mass. 2. Insulin-dependent diabetes mellitus- continue Levemir. Sliding scale insulin. 3. Acute decompensated systolic heart failure - management per Dr. Watts 4. History of hypertension- on valsartan, Coreg 5. Secondary pulmonary artery hypertension- patient with severe pulmonary hypertension, likely decompensated- currently being diuresed by cardio 6. Tobacco abuse- counseled on cessation. Refusing nicotine patch 7. Obesity DVT prophylaxis: Enoxaparin VS,Fishbone, I+O VS, Fishbone, I+O Laboratory Tests 06/26/17 04:54 Vital Signs Date Time Temp Pulse Resp B/P (MAP) Pulse Ox O2 Delivery O2 Flow Rate FiO2 06/26/17 12:00 98.3 69 18 126/59 (81) 97 Room Air I&O- Last 24 Hours up to 6 AM 06/27/17 06:00 Intake Total 1080 ml Output Total 1001 ml Balance 79 ml JOSE ELIAS METZ MD Jun 26, 2017 14:42
[2017-06-26] MEDS ORDERED: GASTROGRAFIN SOLUTION 30ML (Q9963) PO ONE (15:00)
--- NOTE | 2017-06-26 16:13 | IPN ---
DATE: 06/26/2017 at 3:30 p.m. SUBJECTIVE: Patient reports absence of any exertional dyspnea, ambulating short distances in his room and in the hallway. He notices he has less edema in his legs today. No chest pain or chest discomfort. No dizziness or lightheadedness. No palpitations. Overall he reports feeling better. PHYSICAL EXAMINATION: Temperature 98.3, pulse 70, blood pressure 135/60, respiratory rate 18, oxygen saturation 97% on room air. Jugular venous pulsations were at 5 cm. Pitting edema 2 mm in both legs at mid and distal tibial levels bilaterally. Scleral icterus and skin jaundice present but less intense than observed yesterday. First and second heart sounds normal. No S3 or S4. No murmurs appreciated. Respiratory expansion effort was fair. No crackles or wheezes. Abdomen is obese, soft, nontender with normal bowel sounds. Mood and affect were normal. Speech was normal. Patient was net negative 1970 mL for the time that he was observed in hospital 06/26/2017. Thus far today he is also negative at this point. Weight today is 103.7 kg today. This is down from the admission weight of 108 kg observed yesterday. Laboratory work 06/26/2017 was reviewed: Sodium 140, potassium 3.2, chloride 103, CO2 of 27, BUN 18, creatinine 1.39, estimated GFR 53.0, glucose 128, total bilirubin 4.3, down from 4.9 yesterday, direct bilirubin 3.2, which is down from 3.6 yesterday. AST elevated at 72, ALT normal at 30, alkaline phosphatase elevated at 405. Total protein 7.9, albumin 2.9. ASSESSMENT AND PLAN: 1. Ischemic cardiomyopathy. Diagnosis of ischemic cardiomyopathy is made in the presence of regional wall motion abnormalities observed on echocardiogram Doppler from 04/14/2017. Currently [place] Heart Association (NYHA) functional class 2. Remains decompensated on exam but overall appears to be improving. The plan will be for an outpatient cardiac catheterization to better define ischemic versus nonischemic cardiomyopathy. He will begin his first dose of Entresto this evening. Continue carvedilol 6.25 mg twice a day. Continue hydralazine/isosorbide dinitrate. He is still receiving some potassium replacement. I would like to see how he does with regard to his renal function and heart failure for awhile on Entresto before consideration of adding spironolactone, because he already does have some chronic kidney disease (CKD, stage III, moderate). He is on 1800 mL oral fluid restriction and a sodium restriction. Cardiac rehabilitation has been consulted. If indeed he does have an ischemic cardiomyopathy, he will be a candidate for a biventricular implantable cardioverter defibrillator (ICD), which can be done electively as an outpatient on [place]. 2. Acute on chronic systolic and diastolic heart failure. As per problem #1. 3. 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 Plan will be for patient cardiac catheterization when he is stable as an outpatient. Continue aspirin. Continue carvedilol and isosorbide dinitrate. 4. Systemic hypertension. Blood pressure mostly mildly uncontrolled with target blood pressure less than 120/80. Continue intravenous (IV) furosemide. He will be starting valsartan/sacubitril, first dose this evening. Continue carvedilol and hydralazine/isosorbide dinitrate. 5. Nonrheumatic mitral valve disease with moderate mitral regurgitation, likely secondary to ischemic cardiomyopathy, stable. 6. Hyperlipidemia, unspecified. He is on a DASH diet. Pravastatin on hold until his liver function returns to normal. 7. Secondary pulmonary hypertension (severe). Continue heart failure management with IV furosemide. He does not require oxygen. 8. 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 Remains decompensated but improving. Continue heart failure management as above. 9. Nonrheumatic and tricuspid valve regurgitation of moderate degree secondary to severe pulmonary hypertension, stable. 10. Unspecified jaundice. This patient's jaundice is most likely secondary to congestive hepatopathy. I very much appreciate the evaluation and management by Dr. Brice Pickett. 11. Abnormal ECG, stable. 12. Right bundle branch block with right ventricular hypertrophy (RVH), stable. Plan for outpatient biventricular ICD if he is indeed found to have an ischemic cardiomyopathy. 13. Nicotine dependence with cigarette smoking. Patient will be receiving smoking cessation counseling in hospital. 14. Obesity. Continue DASH diet. 15. Type 2 diabetes. Appreciate evaluation and management by Dr. Brice Pickett.
[2017-06-26] MEDS ORDERED: ISOVUE-370 76% 100ML VIAL (Q9967) As Ordered ONE (16:44)
--- NOTE | 2017-06-26 17:15 | REP ---
CT ABDOMEN AND PELVIS WITH IV AND ORAL CONTRAST: TECHNIQUE: Axial contrast enhanced images from the lung bases to the pubic symphysis using 100 mL Isovue 370 intravenous contrast material with multiplanar reformations. There is mild to moderate right pleural fluid with adjacent right basilar atelectasis/infiltrate. Liver demonstrates no evidence of a mass. There is a tiny amount of perihepatic fluid. Small gallstones are seen in the gallbladder. Spleen is unremarkable as are the adrenals and pancreas. Kidneys appear unremarkable with no hydronephrosis. There is moderate atherosclerotic calcification of the abdominal aorta without aneurysm. Mildly enlarged portal lymph node is not significantly changed compared to the prior CT of 01/12/2013 measuring about 1.8 cm in short axis dimension. I do not see other significant adenopathy in the abdomen or pelvis. No free air is seen. No bowel wall thickening is seen. No pelvic mass is seen. The urinary bladder is mildly distended and grossly unremarkable. There is sigmoid diverticulosis without acute diverticulitis. There are degenerative changes of the spine. Subcentimeter calculus is seen in the collecting system of the right kidney inferiorly. IMPRESSION: Mild to moderate right pleural fluid with mild adjacent atelectasis/infiltrate in the right lung base. Gallstones are seen in the gallbladder. There is no evidence of a liver mass. Mild portal adenopathy appears similar to the prior CT of 01/12/2013. Tiny amount of perihepatic fluid is present. Small right renal calculus. Sigmoid diverticulosis without associated acute inflammation. Signed by Ahsan Valerio MD 06/27/2017 09:17 A
[2017-06-26] MEDS: metFORMIN (GLUCOPHAGE) 1000 MG TABLET PO SCH (21:41)
[2017-06-26] MEDS: CARVedilol 3.125 MG TAB PO SCH (22:18)
[2017-06-27 04:45] VITALS: BP 128/86
[2017-06-27 06:37] LABS: ALBUMIN 2.9 GM/DL (3.2-5.2); ALBUMIN/GLOBULIN RATIO 0.6 (1.00-1.93); BILIRUBIN,DIRECT 3.1 MG/DL (0.0-0.2); BILIRUBIN,TOTAL 4.2 MG/DL (0.2-1.0); CALCIUM LEVEL 9.2 MG/DL (8.8-10.2); CREATININE FOR GFR 1.27 MG/DL (0.70-1.30); GLOMERULAR FILTRATION RATE 58.9 (>42); POTASSIUM SERUM 3.5 MEQ/L (3.5-5.1); TOTAL PROTEIN 7.7 GM/DL (6.4-8.2)
[2017-06-27] MEDS: HumaLOG INSULIN (NovoLOG) PER UNIT SC SCH ×4 (07:30→20:30)
[2017-06-27 07:50] VITALS: BP 135/63
[2017-06-27] MEDS: LEVEMIR (INSULIN DETEMIR) 1 UNITS/0.01ML SC SCH (08:34)
[2017-06-27] MEDS: ISOSORBIDE DIN (ISORDIL) 10 MG TAB PO SCH (08:37)
[2017-06-27] MEDS: ASPIRIN 81 MG ENTERIC TAB PO SCH (08:38)
[2017-06-27] MEDS: TORSEMIDE 20 MG TAB PO SCH ×2 (08:38→17:11)
[2017-06-27] MEDS: **hydrALAZINE** 10 MG TAB PO SCH (08:38)
[2017-06-27] MEDS: CARVedilol 3.125 MG TAB PO SCH (08:38)
[2017-06-27] MEDS: ENTRESTO 24-26MG TABLET (SACUBITRIL/VALSARTAN) PO SCH ×2 (08:39→20:30)
[2017-06-27] MEDS: ENOXAPARIN 40 MG/0.4 ML SYRINGE (J1650) SC SCH (08:39)
[2017-06-27 08:40] LABS: MEAN CORPUSCULAR HEMOGLOBIN 29.8 pg (27.0-33.0); MEAN CORPUSCULAR HGB CONC 33.8 g/dl (32.0-36.5); MEAN CORPUSCULAR VOLUME 88.2 fl (80.0-96.0); PLATELET COUNT, AUTOMATED 334 10^3/uL (150-450); RED CELL DISTRIBUTION WIDTH 22.8 % (11.5-14.5); RETIC HEMOGLOBIN EQUIVALENT 36.7 pg (24-36); RETICULOCYTE % 1.5 % (0.5-1.5); WHITE BLOOD COUNT 6.2 10^3/uL (4.0-10.0)
[2017-06-27 12:00] VITALS: BP 112/55
--- NOTE | 2017-06-27 14:33 | IPNPDOC ---
Text Note Date of Service The patient was seen on 06/27/17. NOTE Subjective: Denies CP/SOB/palpitation. No N/V/Abd pain. PHYSICAL EXAMINATION: VITAL SIGNS: Please see below. General: No acute distress, laying comfortably in bed. Notable jaundice HEENT: Moist mucous membranes. Neck: No JVD or lymphadenopathy Cardiac: RRR, No murmurs Pulm: Coarse crackles b/l bases b/l. No wheezing, rhonchi Abd: NT/ND + BS Ext: 1+ pitting edema bilateral lower extremities. No cyanosis LABORATORY DATA: Please see below. Images: Abdominal ultrasound 06/25/17 7 mm calculus lower pole left kidney. Sludge in the gallbladder. Evidence of fatty infiltration of the liver and coarse liver texture. No biliary ductal dilation is observed. MRCP 06/26/17 IMPRESSION: No biliary abnormality visualized as discussed above. Mild perihepatic fluid. Small right pleural effusion. CT Abd/pelvis 06/26/17 IMPRESSION: Mild to moderate right pleural fluid with mild adjacent atelectasis/infiltrate in the right lung base. Gallstones are seen in the gallbladder. There is no evidence of a liver mass. Mild portal adenopathy appears similar to the prior CT of 01/12/2013. Tiny amount of perihepatic fluid is present. Small right renal calculus. Sigmoid diverticulosis without associated acute inflammation. ASSESSMENT/PLAN: 1. Hyperbilirubinemia- likely secondary to hepatic congestion from his underlying systolic heart failure/right heart failure. We will obtain a liver profile. Abdominal ultrasound (see above). Follow-up hepatitis panel. Acetaminophen level negative. MRCP (see above). Discussed case with Dr. Cobian, who believes that this is likely hepatic congestion from the heart failure and ?underlying cirrhosis. CT abdomen and pelvis (see above). 2. Insulin-dependent diabetes mellitus- continue Levemir. Sliding scale insulin. 3. Acute decompensated systolic heart failure - management per Dr. Watts 4. History of hypertension- on ARB, Coreg 5. Secondary pulmonary artery hypertension- patient with severe pulmonary hypertension, likely decompensated- currently being diuresed by cardio 6. Tobacco abuse- counseled on cessation. Refusing nicotine patch 7. Obesity DVT prophylaxis: Enoxaparin VS,Fishbone, I+O VS, Fishbone, I+O Laboratory Tests 06/27/17 05:33 Red Blood Count 4.33, Mean Corpuscular Volume 88.2, Mean Corpuscular Hemoglobin 29.8, Mean Corpuscular Hemoglobin Concent 33.8, Red Cell Distribution Width 22.8 H Vital Signs Date Time Temp Pulse Resp B/P (MAP) Pulse Ox O2 Delivery O2 Flow Rate FiO2 06/27/17 12:00 Room Air 06/27/17 12:00 97.9 70 20 112/55 (00) 95 I&O- Last 24 Hours up to 6 AM 06/28/17 06:00 Intake Total 240 ml Output Total 550 ml Balance -310 ml JOSE ELIAS METZ MD Jun 27, 2017 14:33
--- NOTE | 2017-06-27 14:37 | IPN ---
DATE: 06/27/2017 TIME: 2:06 p.m. SUBJECTIVE: Patient does not notice any exertional dyspnea when walking slowly for short distances in his room and in the hallway, but he is really not pushing himself to do anything more than that. No chest pain or chest discomfort. He is aware he does have some mild leg edema. PHYSICAL EXAMINATION: Temperature 97.9, pulse 71, blood pressure 112/55, oxygen saturation 95% on room air. Weight is incorrectly recorded today as 49.4 kg, which is impossible. Intake and output for the 24 hours 06/26/2017 showed the patient to be net negative 1933 mL. Jugular venous pulsations were at 10 cm. First and second heart sounds are normal. No S3 or S4 or murmurs appreciated. Respiratory expansion effort was good. No crackles or wheezes. 5 mm pitting edema present at mid and distal tibial levels bilaterally. Patient appears to be less jaundiced today, but still has some. Mood and affect were normal. Speech was normal. Laboratory work 06/27/2017 was reviewed: Sodium 140, potassium 3.5, chloride 102, CO2 of 29, BUN 21, creatinine 1.27, estimated GFR 58.9, glucose 133, total bilirubin elevated at 4.2, direct bilirubin 3.1 (elevated), AST elevated at 78 (elevated), ALT normal at 31, alkaline phosphatase elevated at 403, albumin 2.9, total protein 7.7. ASSESSMENT AND PLAN: 1. Acute on chronic systolic and diastolic heart failure. [place] Heart Association (NYHA) functional class 2. Remains decompensated on examination. He seems to be responding well to the current antihypertensive regimen and has diuresed very well. He does have a way to go before he is euvolemic. At this point, my plan is to discontinue hydralazine and isosorbide dinitrate in favor of escalating the dose of Entresto and increasing the dosage of carvedilol to 12.5 mg twice a day. I wish to hold off on adding spironolactone until I know that he is stabilized with his ability to tolerate the higher dose of Entresto with regards to blood pressure, potassium and renal function. Continue torsemide 20 mg twice a day. 2. Ischemic cardiomyopathy. Plan will be for an elective outpatient left and right heart catheterization with diagnosed coronary angiography. Management of heart failure as above. Continue low dose aspirin. 3. Jaundice. Most likely due to hepatic congestion secondary to heart failure. He appears to be improving slowly. Much appreciate the help of the hospitalist service. 4. 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 As per heart failure category above. 5. Moderate mitral regurgitation (nonrheumatic). Stable. 6. CAD without angina. Plan for outpatient cardiac catheterization. Continue aspirin. He is on valsartan and beta-sukh (carvedilol). 7. Pulmonary hypertension secondary to left heart failure. Management of heart failure as above. 8. Nonrheumatic tricuspid regurgitation. Stable. 9. Abnormal ECG. Stable. 10. Right bundle branch block. Stable. 11. Systemic hypertension. Blood pressure controlled. Adjustment of antihypertensive medications as per heart failure category above. 12. Obesity. Continue DASH diet. 13. Hyperlipidemia. Continue DASH diet. Pravastatin on hold while we wait for normalization of his liver function and resolution of jaundice. 14. Type 2 diabetes. Management per hospitalist service. Their input is much appreciated. 15. Cigarette smoking. Smoking cessation counseling per smoking cessation counselor at [facility].
[2017-06-27 16:00] VITALS: BP 148/71
[2017-06-27 20:00] VITALS: BP_SYST 122; BP_SYST 147; BP_DIAS 69; BP_DIAS 74
[2017-06-27] MEDS: metFORMIN (GLUCOPHAGE) 1000 MG TABLET PO SCH (20:30)
[2017-06-27] MEDS: CARVedilol 12.5 MG TAB PO SCH (20:30)
[2017-06-27 23:59] VITALS: BP 111/48
[2017-06-28] VITALS (7 sets, daily range): BP systolic 100–143; BP diastolic 56–72
[2017-06-28 05:56] LABS: MEAN CORPUSCULAR HEMOGLOBIN 29.9 pg (27.0-33.0); MEAN CORPUSCULAR HGB CONC 34.4 g/dl (32.0-36.5); PLATELET COUNT, AUTOMATED 320 10^3/uL (150-450); WHITE BLOOD COUNT 6.2 10^3/uL (4.0-10.0)
[2017-06-28 06:18] LABS: CALCIUM LEVEL 8.7 MG/DL (8.8-10.2); CREATININE FOR GFR 1.37 MG/DL (0.70-1.30); GLOMERULAR FILTRATION RATE 53.9 (>42); POTASSIUM SERUM 3.5 MEQ/L (3.5-5.1)
[2017-06-28 06:23] LABS: ALBUMIN/GLOBULIN RATIO 0.67 (1.00-1.93); BILIRUBIN,DIRECT 3.3 MG/DL (0.0-0.2); BILIRUBIN,TOTAL 4.1 MG/DL (0.2-1.0); TOTAL PROTEIN 7.5 GM/DL (6.4-8.2)
[2017-06-28] MEDS: ENOXAPARIN 40 MG/0.4 ML SYRINGE (J1650) SC SCH (08:17)
[2017-06-28] MEDS: ASPIRIN 81 MG ENTERIC TAB PO SCH (08:17)
[2017-06-28] MEDS: ENTRESTO 24-26MG TABLET (SACUBITRIL/VALSARTAN) PO SCH ×2 (08:17→21:18)
[2017-06-28] MEDS: HumaLOG INSULIN (NovoLOG) PER UNIT SC SCH ×4 (08:17→21:00)
[2017-06-28] MEDS: LEVEMIR (INSULIN DETEMIR) 1 UNITS/0.01ML SC SCH (08:17)
[2017-06-28] MEDS: TORSEMIDE 20 MG TAB PO SCH ×2 (08:18→16:53)
[2017-06-28] MEDS: CARVedilol 12.5 MG TAB PO SCH ×2 (08:19→21:22)
[2017-06-28] MEDS ORDERED: SLF 3 ML SYR IV PRN (11:00)
[2017-06-28] MEDS: POTASSIUM CHLORIDE 10 MEQ SR TABLET PO SCH (11:49)
[2017-06-28] MEDS: SLF 3 ML SYR IV SCH ×2 (13:18→21:22)
--- NOTE | 2017-06-28 21:11 | IPN ---
CARDIOLOGY PROGRESS NOTE: 06/28/2017 Time: 07:56 p.m. SUBJECTIVE: The patient reports no exertional dyspnea with late ambulation for short distances in the hallway and in his room. No chest pain or chest discomfort. No orthopnea or lightheadedness. He is aware that he has a small amount of edema in both legs. Overall he is feeling well. No palpitations. PHYSICAL EXAMINATION: Pleasant man who is not in any respiratory or psychological distress. Temperature 98.0, pulse 61 (regular), respiratory rate 20, blood pressure 133/60, oxygen saturation 95% on room air. Weight today was 99.7 kg. He was net negative 265 mL for the 24 hours of 06/27/2017. Jugular venous pulsations were at 8 cm. First and second heart sounds normal. No murmurs appreciated. No S3 or S4. Respiratory expansion effort was fair. No crackles or wheezes. Abdomen was soft and nontender with normal bowel sounds. 1-2 mm of pitting edema was present at mid and distal tibia level bilaterally. The patient has mild jaundice. LABORATORY: 06/28/2017: Shows sodium 141, potassium 3.5, chloride 103, CO2 26, BUN 23, creatinine 1.37. Estimated GFR 53.9. Glucose 138. Total bilirubin elevated at 4.1. Direct bilirubin 3.3. AST 80. ALT normal at 36, alkaline phosphatase elevated at 431. Albumin 3.0. ASSESSMENT AND PLAN: 1. Acute on chronic systolic and diastolic heart failure. The patient continues to improve. He remains mildly decompensated at this time. NYHA function class II. He is generating a good net negative fluid balance and renal function is remaining relatively stable. Today, I decreased the Entresto back down to 50 mg twice a day. Carvedilol was increased to 12.5 mg twice a day. Continue torsemide 20 mg twice a day. Potassium chloride 10 mEq daily was added. I do not wish to add spironolactone at this time as I wish to maximize the titration of Entresto as an outpatient before attempting to add spironolactone. 2. Ischemic cardiomyopathy. Ischemic cardiomyopathy is presumed to be on the basis of regional wall motion abnormalities observed on prior echocardiogram. He should have an outpatient diagnostic cardiac catheterization to confute the diagnosis of ischemic cardiomyopathy. Management of heart failure as above. 3. Jaundice. Liver function is staying about the same. He does have some mild jaundice. 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 4. 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 Heart failure management as above. 5. Nonrheumatic mitral valve regurgitation (moderate). Stable. 6. Coronary artery disease (CAD) without angina. Plan for outpatient cardiac catheterization at a future date. Continue on aspirin. Continue carvedilol. 7. Pulmonary hypertension secondary to left heart failure. Severe. Associated right heart failure. Stable. 8. Nonrheumatic tricuspid valve regurgitation. Stable. 9. Abnormal hCG. Stable. 10. Right bundle branch block, stable. 11. Systemic hypertension. Blood pressure controlled. Continue the current regimen consisting of torsemide, sacubitril/valsartan, torsemide. 12. Obesity. Weight has gone down mostly from diuresis. His BMI is now below 13. BMI calculated today to be 29.8. Continue DASH diet. 14. Hyperlipidemia. Continue DASH diet. 15. Type 2 diabetes. Continue metformin. He is on sliding scale per [facility] protocol. Appreciate input of the hospitalist service. 16. Cigarette smoking. Smoking cessation counseling per [facility] smoking cessation counselor.
[2017-06-28] MEDS: metFORMIN (GLUCOPHAGE) 1000 MG TABLET PO SCH (21:18)
[2017-06-29 04:00] VITALS: BP 116/59
[2017-06-29 04:29] LABS: ALBUMIN 2.8 GM/DL (3.2-5.2); ALBUMIN/GLOBULIN RATIO 0.55 (1.00-1.93); BILIRUBIN,DIRECT 2.7 MG/DL (0.0-0.2); BILIRUBIN,TOTAL 3.6 MG/DL (0.2-1.0); CALCIUM LEVEL 8.9 MG/DL (8.8-10.2); CREATININE FOR GFR 1.29 MG/DL (0.70-1.30); GLOMERULAR FILTRATION RATE 57.8 (>42); POTASSIUM SERUM 3.3 MEQ/L (3.5-5.1); TOTAL PROTEIN 7.9 GM/DL (6.4-8.2)
[2017-06-29] MEDS: SLF 3 ML SYR IV SCH ×2 (06:00→14:00)
[2017-06-29] MEDS: HumaLOG INSULIN (NovoLOG) PER UNIT SC SCH ×2 (08:03→12:43)
[2017-06-29] MEDS: LEVEMIR (INSULIN DETEMIR) 1 UNITS/0.01ML SC SCH (08:03)
[2017-06-29 08:04] VITALS: BP 116/59
[2017-06-29] MEDS: CARVedilol 12.5 MG TAB PO SCH (08:04)
[2017-06-29] MEDS: ENOXAPARIN 40 MG/0.4 ML SYRINGE (J1650) SC SCH (08:04)
[2017-06-29] MEDS: ENTRESTO 24-26MG TABLET (SACUBITRIL/VALSARTAN) PO SCH (08:04)
[2017-06-29] MEDS: TORSEMIDE 20 MG TAB PO SCH (08:05)
[2017-06-29] MEDS: ASPIRIN 81 MG ENTERIC TAB PO SCH (08:05)
[2017-06-29] MEDS: POTASSIUM CHLORIDE 10 MEQ SR TABLET PO SCH (08:05)
[2017-06-29 08:07] VITALS: BP 144/70
[2017-06-29 12:26] VITALS: BP 129/74
[2017-06-29] MEDS ORDERED: POTA10CA PO (13:20)
[2017-06-29] MEDS ORDERED: CARV12.5 PO (13:20)
[2017-06-29] MEDS ORDERED: DEMA20TA6 PO (13:20)
[2017-06-29] MEDS ORDERED: ENTR1TAB PO (13:20)
[2017-06-29] MEDS ORDERED: POTASSIUM CHLORIDE 10 MEQ SR TABLET PO ONE (14:00)
--- NOTE | 2017-06-29 14:33 | DSES ---
DATE OF ADMISSION: 06/25/2017 DATE OF DISCHARGE: DISCHARGE MEDICATIONS: (New prescriptions) - carvedilol 12.5 mg twice a day - potassium chloride 20 mEq by mouth daily - Entresto 24-26 mg one twice a day - torsemide 20 mg twice a day MEDICATIONS TO CONTINUE: (Previous home medications) as follows: - acetaminophen PM 500-25 mg one nightly - aspirin 81 mg daily - Levemir insulin 30 units subcu daily - metformin 1000 mg nightly - omeprazole 20 mg daily THE FOLLOWING HOME MEDICATIONS WERE STOPPED: Carvedilol dosage of 6.25 mg twice a day, furosemide 80 mg every evening, lisinopril 10 mg every evening, pravastatin 80 mg every evening. FOLLOWUP: A clinic visit with Dr. Watts in 1-2 weeks. A followup with Dr. Edu Valentine as scheduled. FINAL DIAGNOSES: 1. Acute on chronic systolic and diastolic heart failure, now chronic systolic and diastolic heart failure, [place] [employer] (NYHA) functional class 2. 2. Ischemic cardiomyopathy (presumed on the basis of regional wall motion abnormality on prior echocardiogram). 3. Jaundice secondary to hepatic congestion secondary to right heart failure. 4. 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 5. Non-rheumatic mitral valve regurgitation (moderate mitral regurgitation). 6. Coronary artery disease ([place] vessel) without angina. Presumed diagnosis of coronary artery disease based on presence of regional wall motion abnormalities on echocardiogram. 7. Pulmonary hypertension secondary to left heart failure. 8. Nonrheumatic tricuspid valve regurgitation. 9. Abnormal electrocardiogram (ECG). 10. Right bundle branch block. 11. Systemic hypertension. 12. Obesity. 13. Hyperlipidemia. 14. Type 2 diabetes. 15. Cigarette smoking. CLINICAL SUMMARY AND COURSE IN THE HOSPITAL: Mr. Alexei Malcolm was seen at my office in consultation for heart failure on 06/25/2017 at which time he was recognized to be decompensated and to be jaundiced. He, therefore, was hospitalized to the progressive care unit. He received a course of intravenous (IV) furosemide and diuresed well. He was subsequently switched over to torsemide by mouth and continued to diurese well and showed some improvement in renal function. He was taken off of lisinopril and switched over to Entresto (sacubitril/valsartan). Spironolactone was not added because I wished to maximize Entresto before adding spironolactone, and this process will continue as an outpatient. Potassium chloride was added. Carvedilol was increased to 12.5 mg twice a day. Liver function tests were elevated and showed some improvement as he was diuresed. His weight at discharge was 99.3 kg. Laboratory work 06/29/2017 showed sodium 139, potassium 3.3, chloride 104, BUN 30, creatinine 1.29, estimated glomerular filtration rate (GFR) 57.8, glucose 120, direct bilirubin 2.7, total bilirubin 3.6, AST elevated at 86, ALT normal at 39, alkaline phosphatase elevated at 421, albumin 2.8, total protein 7.9. He was seen by cardiac rehabilitation. On 06/25/2017, his NT Pro-BNP was 7757. During this hospitalization, he was seen in consultation by Dr. Brice Pickett with regards to managing his diabetes and workup of liver dysfunction. The patient became progressively less jaundiced and the bilirubin overall showed a decline. Magnetic resonance cholangiopancreatography (MRCP) examination 06/26/2017 reported no biliary abnormality. Mild perihepatic fluid. Small right pleural effusion. Gallbladder very mildly distended. No intrahepatic biliary dilatation. No extrahepatic biliary dilatation. Pancreatic duct not dilated. CT abdomen and pelvis with IV and oral contrast 06/26/2017 reported mild to moderate right pleural effusion with mild adjacent atelectasis/infiltrate in the right lung base. Gallstones in the gallbladder. No evidence of liver mass. Mild portal adenopathy. Tiny amount of perihepatic fluid present. Small right renal calculus. Sigmoid diverticulosis without acute inflammation. Right upper quadrant ultrasound 06/25/2017 reported a 7 mm calculus lower pole left kidney. Sludge in the gallbladder. Evidence of fatty liver infiltration and coarse liver texture. No biliary ductal dilatation. Pravastatin was placed on hold because of the liver dysfunction. To recap, an echocardiogram Doppler at [facility] 04/14/2017 showed normal left ventricle end diastolic dimension and normal left ventricular (LV) wall thickness. Akinesis of the inferobasal LV segment with severe hypsokinesis of the mid inferior segment and moderate global LV hypokinesis. Severe reduction in overall LV systolic function (LVEF 30% by visual estimate), grade 2 LV diastolic dysfunction, suggestive of elevated mean left atrial pressure. B-notch on the mitral valve M-mode pattern suggestive of elevated left ventricular end diastolic pressure (LVEDP). Normal mitral leaflets with moderate mitral regurgitation. Normal right ventricle (RV) size with moderate reduction in overall RV systolic function. Moderate tricuspid regurgitation involving a structurally normal appearing tricuspid valve. Inferior vena cava plethora suggestive of central venous pressure of at least 20 mmHg. Moderately technically difficult echocardiogram. The total time involved in this patient's discharge was 40 minutes (discharge level 2). This included time to prepare this portion of the medical record, speaking with and examining the patient and preparing electronic prescriptions. Copy To: Dr. Edu Watts
[2017-06-30] MEDS ORDERED: POTASSIUM CHLORIDE 10 MEQ SR TABLET PO SCH (09:00)
== END 2017-06-29 14:44 | disposition home or self-care (01) | DRG 291 ==
LOC: M ICU 10:39 → M PCU 06-26 10:05
PROVIDERS: ADMIT Internal Medicine Cardiovascular Disease; ATTEND Internal Medicine Cardiovascular Disease
DX: I13.0 Hypertensive heart and chronic kidney disease with heart failure and stage 1 through stage 4 chronic kidney disease, or unspecified chronic kidney disease (principal); I50.43 Acute on chronic combined systolic (congestive) and diastolic (congestive) heart failure; E80.6 Other disorders of bilirubin metabolism; E78.5 Hyperlipidemia, unspecified; E66.9 Obesity, unspecified; N18.3 Chronic kidney disease, stage 3 (moderate); E11.9 Type 2 diabetes mellitus without complications; I45.10 Unspecified right bundle-branch block; F17.210 Nicotine dependence, cigarettes, uncomplicated; F10.21 Alcohol dependence, in remission; I25.5 Ischemic cardiomyopathy; I25.10 Atherosclerotic heart disease of native coronary artery without angina pectoris; I34.0 Nonrheumatic mitral (valve) insufficiency; I27.22 Pulmonary hypertension due to left heart disease; Z68.32 Body mass index [BMI] 32.0-32.9, adult; Z79.4 Long term (current) use of insulin; Z79.899 Other long term (current) drug therapy

== ENCOUNTER → 2017-12-23 | Outpatient (REF) | payer MEDICARE ==
[2017-12-23 14:15] LABS: VITAMIN B12 LEVEL 748 PG/ML
[2017-12-23 14:16] LABS: FOLATE 14.6 NG/ML
[2017-12-23 14:19] LABS: FERRITIN 85 NG/ML (26-388); IRON (FE) 134 UG/DL (65-175); PERCENT SATURATION 42.5 % (19.7-50.0); TOTAL IRON BINDING CAPACITY 315 UG/DL (250-450)
== END ==
LOC: M LAB REF 13:28
DX: R74.8 Abnormal levels of other serum enzymes (principal)
CPT/HCPCS: 82746

== ENCOUNTER → 2018-03-31 | Outpatient (REF) | payer MEDICARE ==
[2018-03-31 14:29] LABS: PHOSPHORUS LEVEL 2.6 MG/DL (2.5-4.9)
== END ==
LOC: M LAB REF 13:28
DX: I25.5 Ischemic cardiomyopathy (principal)
CPT/HCPCS: 84100

== ENCOUNTER → 2018-05-06 | Outpatient (REF) | payer MEDICARE ==
[2018-05-06 22:06] LABS: PHOSPHORUS LEVEL 3.5 MG/DL (2.5-4.9)
== END ==
LOC: M LAB REF 13:19
DX: I25.5 Ischemic cardiomyopathy (principal)
CPT/HCPCS: 84100

== ENCOUNTER 2018-11-24 13:19 | Inpatient (IN) | payer MEDICARE ==
[~2018-11-24] VITALS: Ht 182.9 cm; Wt 100.3 kg
[2018-11-24] MEDS: NICOTINE 14 MG/24 HR TRANSDERMAL TD SCH (09:00)
[~2018-11-24 13:19] MED LIST changes: -ASPI81CH PO; +ASPI81CH49 PO; +CARV12.5 PO; +CARV6.25 PO; +DEMA20TA6 PO; +ENTR1TAB PO; +KLOR10TA76 PO
[2018-11-24] MEDS ORDERED: AMLO5TAB6 PO (13:35)
[2018-11-24 14:15] LABS: BASO % 0.4 % (0.0-1.0); EOS # 0.1 10^3/uL (0.0-0.50); EOS % 2.4 % (0.0-3.0); HEMATOCRIT 23.9 % (42.0-52.0); HEMOGLOBIN 7.7 g/dl (13.5-17.5); LYMPH # 1.8 10^3/uL (1.5-4.5); MEAN CORPUSCULAR HEMOGLOBIN 32.2 pg (27.0-33.0); MEAN CORPUSCULAR HGB CONC 32.2 g/dl (32.0-36.5); MONO # 0.3 10^3/uL (0.0-0.8); MONO % 7.3 % (0.0-5.0); NEUTROPHILS # 2.4 10^3/uL (1.8-7.7); NEUTROPHILS % 50.7 % (36.0-66.0); PLATELET COUNT, AUTOMATED 138 10^3/uL (150-450); RED BLOOD COUNT 2.39 10^6/uL (4.30-6.10); WHITE BLOOD COUNT 4.7 10^3/uL (4.0-10.0)
[2018-11-24] MEDS ORDERED: IPRATROPIUM 0.5MG/ALBUTEROL 2.5MG INH SOL UD 3ML (DUONEB)(J7620) NEB ONE (14:30)
[2018-11-24 14:51] LABS: ALBUMIN 2.8 GM/DL (3.2-5.2); ALT/SGPT 19 U/L (12-78); BILIRUBIN,DIRECT 0.2 MG/DL (0.0-0.2); BILIRUBIN,TOTAL 0.5 MG/DL (0.2-1.0); BLOOD UREA NITROGEN 62 MG/DL (7-18); CARBON DIOXIDE LEVEL 17 MEQ/L (21-32); CHLORIDE LEVEL 110 MEQ/L (98-107); CPK CREATINE PHOSPHOKINASE 96 U/L (39-308); CREATININE FOR GFR 3.12 MG/DL (0.70-1.30); GLOMERULAR FILTRATION RATE 20.8 (>42); GLUCOSE, FASTING 129 MG/DL (70-100); MB/CK RELATIVE INDEX 5.94 (< OR =4); NT-PRO BNP 2282 PG/ML (<450); POTASSIUM SERUM 5.1 MEQ/L (3.5-5.1); SODIUM LEVEL 139 MEQ/L (136-145); THYROXINE (T4) 8.5 UG/DL (4.5-12.0); TOTAL PROTEIN 7.4 GM/DL (6.4-8.2); TROPONIN I < 0.02 NG/ML (< 0.10)
--- NOTE | 2018-11-24 14:58 | REP ---
Chest x-ray: Three views. History: Shortness of breath. Comparison chest x-ray: June 25, 2017. Findings: EKG monitoring electrodes overlie the chest. Cardiomegaly is observed. There is blunting of the posterior pleural angles bilaterally on the lateral view. This is more pronounced than previous. Suggestive of bilateral small effusions. Pulmonary vasculature is cephalized unchanged. No new infiltrate is seen. There is diffuse osteopenia. Impression: Cardiomegaly. Small bilateral effusions. Pulmonary vascular cephalization consistent with mild CHF. No focal infiltrate. Electronically Signed by Chandana Alonzo MD 11/24/2018 07:33 P
[2018-11-24 15:04] LABS: ABG BASE EXCESS -10.1 (-2.0-2.0); ABG HCO3 15.6 MEQ/L (22.0-26.0); ABG O2 SATURATION 99.1 % (95.0-99.0); ABG PARTIAL PRESSURE CO2 33.2 mmHg (35.0-45.0); ABG PARTIAL PRESSURE O2 139.6 mmHg (75.0-100.0); ABG STANDARD HCO3 16.3 MEQ/L (22.0-26.0); ABG TOTAL CO2 16.6 MEQ/L (23.0-31.0); ABG pH (ARTERIAL) 7.289 UNITS (7.350-7.450)
[2018-11-24] MEDS ORDERED: CARV12.5 PO (15:23)
[2018-11-24] MEDS ORDERED: MAGN400T PO (15:23)
[2018-11-24] MEDS ORDERED: TORS20TA2 PO (15:23)
[2018-11-24] MEDS ORDERED: LOSA100T50 PO (15:23)
--- NOTE | 2018-11-24 15:39 | ECGEPIP ---
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
[2018-11-24] MEDS ORDERED: FUROSEMIDE 40 MG/4 ML VIAL (J1940) IV ONE ×2 (17:00→19:30)
[2018-11-24] MEDS ORDERED: FUROSEMIDE injection 250 MG in D5W 225 ML IV SCH (18:00)
[2018-11-24 18:11] VITALS: BP 120/54
[2018-11-24] MEDS ORDERED: GLUCAGON FOR INJ 1 MG VIAL (J1610) SC PRN (19:00)
[2018-11-24] MEDS ORDERED: GLUCOSE 4 GM CHEW TABLET PO PRN (19:00)
[2018-11-24] MEDS ORDERED: ALBUTEROL SULFATE 2.5 MG/0.5 ML INH NEB SOLN NEB PRN (19:00)
[2018-11-24] MEDS ORDERED: DEXTROSE 50% 50 ML SYRINGE IV PRN (19:00)
--- NOTE | 2018-11-24 19:06 | HPEPDOC ---
General Date of Admission November 24, 2018 at 16:30 Chief Complaint The patient is a 78-year-old male admitted with a reason for visit of Acute Exa ceraton Of Chf, Kya. Source: Patient, RN/MD, Old records Exam Limitations: No limitations Severity: Moderate History of Present Illness 78 year old male with PMH of CKD stage 3 { creatinine 2.0 in May 2018}, Chronic systolic and diastolic heart failure, Last EF of 30%, Ischemic cardiomyopathy (presumed on the basis of regional wall motion abnormality on prior echocardiogram), Right heart failure secondary to left heart failure. Non-rheumatic mitral valve regurgitation (moderate mitral regurgitation), Jnoathan nary artery disease ([place] vessel) without angina. Presumed diagnosis of coronary artery disease based on presence of regional wall motion abnormalities on echocardiogram, Pulmonary hypertension secondary to left heart failure. Nonrheumatic tricuspid valve regurgitation, Right bundle branch block, Systemic hypertension, Obesity, Hyperlipidemia, Type 2 diabetes, Cigarette smoking. H/o GIB in 2006 from gastric prepyloric ulcer, Esophageal stricture presented to the ED after a fall in the street today. He has been having increasing SOB , fatigue and weakness for the past 2 to 3 weeks which really worsened in the last 3 days then today was was so SOB that he could not walk half a block to the bus stop. 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 2 passengers from the bus helped him up into the bus and he came to the transfer center from there the ambulance brought him to the ED. He denied any cough or phlegm. Has has orthopnea and used 3 pillows and also some time has PND. He denied any fever or chills, he denied any abdominal pain, nausea vomiting or diarrhea, he denied any hemetemesis or josue or hematochezia. In [facility] ED he was found to have a Hb of 7.0 and a creatinine of 3.4. His guaiac was positive. His hb from PMD on 10/09 was 10.9 and on may 2018 was 11.8. He was admitted for CHF exacerbation , Kya on CKD and symptomatic anemia. I personally looked at the CXR and EKG: My interpretation of the CXR is there are features of pulmonary vascular congestion and cardiomegaly. His EKG showed sinus bradycardia with a rate of 50 with RBBB according to my interpretation. Home Medications Scheduled Acetaminophen/Diphenhydramine (Acetaminophen Pm Caplet) 1 Tab Tab, 1 TAB PO QHS, (Reported) Amlodipine Besylate (Amlodipine Besylate) 5 Mg Tablet, 5 MG PO DAILY, (Reported) Aspirin (Aspirin) 81 Mg Chw, 81 MG PO DAILY, (Reported) Carvedilol (Carvedilol) 12.5 Mg Tablet, 12.5 MG PO BID, (Reported) Losartan Potassium (Losartan Potassium) 100 Mg Tablet, 100 MG PO QHS, (Reported) Magnesium Oxide (Magnesium Oxide) 400 Mg Tablet, 400 MG PO BID, (Reported) Metformin HCl (Metformin HCl) 1,000 Mg Tab, 1,000 MG PO QHS, (Reported) Omeprazole (Omeprazole) 20 Mg Cap, 20 MG PO QPM, (Reported) TAKES AT 1700 Torsemide (Torsemide) 20 Mg Tablet, 20 MG PO BID, (Reported) Scheduled PRN Insulin Detemir (Levemir) 1 Units/0.01 Ml Susp, 30 UNITS SC QHS PRN for BLOOD SUGAR , (Reported) PATIENT INDICATED HE ONLY USES THIS WHEN BLOOD SUGAR IS ABNORMALLY HIGH Allergies Coded Allergies: No Known Drug Allergies (Verified Allergy, Unknown, 11/24/18) Past Medical History Medical History Chronic systolic and diastolic heart failure, now chronic systolic and diastolic heart failure Last EF of 30% Ischemic cardiomyopathy (presumed on the basis of regional wall motion abnormality on prior echocardiogram). 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 Non-rheumatic mitral valve regurgitation (moderate mitral regurgitation). Coronary artery disease ([place] vessel) without angina. Presumed diagnosis of coronary artery disease based on presence of regional wall motion abnormalities on echocardiogram. Pulmonary hypertension secondary to left heart failure. Nonrheumatic tricuspid valve regurgitation. Right bundle branch block. Systemic hypertension. Obesity. Hyperlipidemia. Type 2 diabetes. Cigarette smoking. H/o GIB in 2006 from gastric prepyloric ulcer Esophageal stricture Surgical History Surgery for gastric ulcer Family History Father of a heart attack at age 62. Mother of heart disease at age 61. One brother at age 81 from cancer. Another brother with heart disease. Another brother who of heart attack. Another brother , cause unknown. One sister in her 60s from cancer. Another sister from lung cancer. Another sister with diabetes. Social History * Smoker: current smoker, less than 1 pack/day Alcohol: sober Drugs: denies Single. Lives alone. Retired. Independent with all activities of daily living. Recovered alcoholic. No alcohol. Currently smokes a half of a pack of cigarettes per day. He began smoking at age 9. A-FIB/CHADSVASC A-FIB History Current/History of A-Fib/PAF?: No Review of Systems Constitutional: Reports: Malaise, Weakness, Fatigue; Denies: Chills, Fever, Night Sweats Eyes: Denies: Pain, Vision change ENT: Denies: Head Aches, Ear Pain, Dysphagia Skin: Denies: Rash, Lesions, Breakdown Pulmonary: Reports: Dyspnea, Cough Cardiovascular: Reports: Orthopnea, Paroxysmal Noc. Dyspnea, Edema Gastrointestinal: Denies: Nausea, Vomiting, Abdominal Pain, Diarrhea, Constipation, Melena, Hematochezia Genitourinary: Denies: Dysuria, Frequency, Incontinence, Retention Hematologic: Denies: Bruising, Bleeding Excessively Musculoskeletal: Denies: Neck Pain, Back Pain, Joint Pain, Muscle Pain, Spasms Neurological: Denies: Weakness, Numbness, Change in speech, Confusion Psych: Reports: Mood Normal; Denies: Depression, Memory Issues Physical Examination General Exam: Positive: Alert, Cooperative, Mild Distress Eye Exam: Positive: PERRLA, Conjunctiva & lids normal, EOMI; Negative: Sclera icteric ENT Exam: Positive: Atraumatic, Mucous membr. moist/pink, Pharynx Normal Neck Exam: Positive: Supple, JVD Chest Exam: Positive: Rales, Diminished Heart Exam: Positive: Rate Normal, Regular Rhythm, Normal S1, Normal S2; Negative: Murmurs, Rubs Telemetry: Positive: No significant arrhythmia Abdomen Exam: Positive: Normal bowel sounds, Soft; Negative: Tenderness Extremity Exam: Positive: Edema, Swelling; Negative: Clubbing, Cyanosis, Normal pulses, Tenderness, Other Skin Exam: Positive: Nl turgor and temperature; Negative: Breakdown, Lesion Psych Exam: Positive: Mental status NL, Mood NL, Oriented x 3 Vital Signs Vital Signs Date Time Temp Pulse Resp B/P (MAP) Pulse Ox O2 Delivery O2 Flow Rate FiO2 11/24/18 17:46 54 126/55 (78) 98 5/13/19 14:15 Room Air 11/24/18 13:35 97.8 19 Laboratory Data Labs 24H Laboratory Tests 2 11/24/18 14:05: Immature Granulocyte % (Auto) 0.2, White Blood Count 4.7, Red Blood Count 2.39L, Hemoglobin 7.7L, Hematocrit 23.9L, Mean Corpuscular Volume 100.0H, Mean Corpuscular Hemoglobin 32.2, Mean Corpuscular Hemoglobin Concent 32.2, Red Cell Distribution Width 13.9, Platelet Count 138L, Neutrophils (%) (Auto) 50.7, Lymphocytes (%) (Auto) 39.0, Monocytes (%) (Auto) 7.3H, Eosinophils (%) (Auto) 2.4, Basophils (%) (Auto) 0.4, Neutrophils # (Auto) 2.4, Lymphocytes # (Auto) 1.8, Monocytes # (Auto) 0.3, Eosinophils # (Auto) 0.1, Basophils # (Auto) 0.0, Nucleated Red Blood Cells % (auto) 0.0, Anion Gap 12, Glomerular Filtration Rate 20.8L, Calcium Level 8.0L, Aspartate Amino Transf (AST/SGOT) 32, Alanine Aminotransferase (ALT/SGPT) 19, Alkaline Phosphatase 217H, Total Bilirubin 0.5, Direct Bilirubin 0.2, Total Creatine Kinase 96, Creatine Kinase MB 6.0H, Creatine Kinase MB Relative Index 5.94H, Troponin I < 0.02, SF-Bou-I-Type Natriuretic Peptide 2282H, Total Protein 7.4, Albumin 2.8L, Albumin/Globulin Ratio 0.61L, Thyroid Stimulating Hormone (TSH) 2.050, Thyroxine (T4) 8.5 11/24/18 14:56: Blood Gas Bicarbonate Standard 16.3L, Arterial Blood pH 7.289L, Arterial Blood Partial Pressure CO2 33.2L, Arterial Blood Partial Pressure O2 139.6H, Arterial Blood Total CO2 16.6L, Arterial Blood HCO3 15.6L, Arterial Blood Base Excess - 10.1L, Arterial Blood Oxygen Saturation 99.1H CBC/BMP Laboratory Tests 11/24/18 14:05 Red Blood Count 2.39 L, Mean Corpuscular Volume 100.0 H, Mean Corpuscular H emoglobin 32.2, Mean Corpuscular Hemoglobin Concent 32.2, Red Cell Distribution Width 13.9, Neutrophils (%) (Auto) 50.7, Lymphocytes (%) (Auto) 39.0, Monocytes (%) (Auto) 7.3 H, Eosinophils (%) (Auto) 2.4, Basophils (%) (Auto) 0.4, Neutrophils # (Auto) 2.4, Lymphocytes # (Auto) 1.8, Monocytes # (Auto) 0.3, Eosinophils # (Auto) 0.1, Basophils # (Auto) 0.0 Assessment/Plan 78 year old male with PMH of CKD stage 3 { creatinine 2.0 in May 2018}, Chronic systolic and diastolic heart failure, Last EF of 30%, Ischemic cardiomyopathy (presumed on the basis of regional wall motion abnormality on prior echocardiogram), Right heart failure secondary to left heart failure. Non-rheumatic mitral valve regurgitation (moderate mitral regurgitation), Coronary artery disease ([place] vessel) without angina. Presumed diagnosis of coronary artery disease based on presence of regional wall motion abnormalities on echocardiogram, Pulmonary hypertension secondary to left heart failure. Non rheumatic tricuspid valve regurgitation, Right bundle branch block, Systemic hypertension, Obesity, Hyperlipidemia, Type 2 diabetes, Cigarette smoking. H/o GIB in 2006 from gastric prepyloric ulcer, Esophageal stricture presented to the ED after a fall in the street today. He has been having increasing SOB , fatigue and weakness for the past 2 to 3 weeks which really worsened in the last 3 days then today was was so SOB that he could not walk half a block to the bus stop. 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 2 passengers from the bus helped him up into the bus and he came to the transfer center from there the ambulance brought him to the ED. In the ED he was found to have a Hb of 7.7 and a creatinine of 3.4. His guaiac was positive. His Hb from PMD on 10/09/18 was 10.9 and on may 2018 was 11.8. He was admitted for CHF exacerbation , yKa on CKD and symptomatic anemia. Acute on Chronic Systolic and diastolic CHF exacerbation telemetry, last EF was 30% will give a lasix of 120 mg once then start on lasix gtt. urinary cath I/O monitoring. 2 gm sodium diet with fluid restriction of 1.8 liters. Cardiology consult. KYA on CKD stage 3 Due to cardiorenal syndrome baseline creatinine is about 2.0 will load with 120 mg lasix then give lasix gtt. will hold ACEI, ARBs, spironolactone Symptomatic anemia HH has been slowly going down over the past 6 months. was 11.8 in may 2018 was 10.9 in september 2018 patient is guaic positive but no overt hemetemesis of josue or hematochezia Patient does have h/o gastric ulcer and GIB in the past. Anemia probably a combination of anemia of CKD and slow GIB will check stool for occult blood. will check iron studies. will transfuse 2 units. IF after transfusion HH again drops will consult GI or surgery for egd / colonoscopy. CAD with ischemic cardiomyopathy will hold ASA now. will continue with betablocker with hold parameters. Diabetes continue with lispro and levemir FS AC and HS Hypertension controlled with some low numbers. will hold amlodipine and losartan continue with coreg with hold parameters Pulmonary hypertension with chronic right heart failure now in exacerbation due to exacerbation of left heart failure continue with lasix gtt. Valvular heart disease moderate mitral and tricuspid regurgitation Smoking discussed smoking cessation offered nicotine patch says will ask for it if he needs it. Gi prophylaxis will give IV pantoprazole as has h/o bleeding gastric ulcer. DVT TEDS and stockings Plan / VTE VTE Prophylaxis Ordered?: Yes SOBEIDA BURRIS MD November 24, 2018 19:06
[2018-11-24 19:25] LABS: PERCENT SATURATION 12.3 % (19.7-50.0)
[2018-11-24 19:34] LABS: FOLATE 4.7 NG/ML (>5.4)
[2018-11-24] MEDS: PANTOPRAZOLE 40MG INJ (PROTONIX) (C9113) IV SCH (19:58)
[2018-11-24 20:00] VITALS: BP 119/58
[2018-11-24] MEDS: MAGNESIUM OXIDE 400 MG TAB (MAG-OX) PO SCH (20:35)
[2018-11-24] MEDS: CARVedilol 12.5 MG TAB PO SCH (20:35)
[2018-11-24] MEDS: DOCUSATE SODIUM 100 MG CAP PO SCH (20:35)
[2018-11-24] MEDS: HumaLOG INSULIN (NovoLOG) PER UNIT SC SCH (20:42)
[2018-11-24] MEDS ORDERED: OMEPRAZOLE 20 MG CAP PO SCH (21:00)
[2018-11-24 22:02] LABS: HEMATOCRIT 23.5 % (42.0-52.0); HEMOGLOBIN 7.9 g/dl (13.5-17.5)
[2018-11-25] MEDS ORDERED: FUROSEMIDE 40 MG/4 ML VIAL (J1940) IV ONE
[2018-11-25 00:12] VITALS: BP 125/58
[2018-11-25 04:00] VITALS: BP 145/65
[2018-11-25 04:20] LABS: HEMATOCRIT 26.4 % (42.0-52.0); HEMOGLOBIN 8.7 g/dl (13.5-17.5)
[2018-11-25 05:25] LABS: MEAN CORPUSCULAR HEMOGLOBIN 32.1 pg (27.0-33.0); MEAN CORPUSCULAR HGB CONC 33.6 g/dl (32.0-36.5); MEAN CORPUSCULAR VOLUME 95.6 fl (80.0-96.0); PLATELET COUNT, AUTOMATED 129 10^3/uL (150-450); RED BLOOD COUNT 2.74 10^6/uL (4.30-6.10); WHITE BLOOD COUNT 4.6 10^3/uL (4.0-10.0)
[2018-11-25 05:36] LABS: ALBUMIN 3.1 GM/DL (3.2-5.2); BILIRUBIN,TOTAL 0.7 MG/DL (0.2-1.0); CALCIUM LEVEL 8.1 MG/DL (8.8-10.2); CREATININE FOR GFR 3.1 MG/DL (0.70-1.30); POTASSIUM SERUM 4.7 MEQ/L (3.5-5.1); TOTAL PROTEIN 6.9 GM/DL (6.4-8.2)
[2018-11-25] MEDS: PANTOPRAZOLE 40MG INJ (PROTONIX) (C9113) IV SCH ×2 (06:35→18:55)
[2018-11-25] MEDS: HumaLOG INSULIN (NovoLOG) PER UNIT SC SCH ×4 (07:30→20:17)
[2018-11-25 08:00] VITALS: BP 120/62
[2018-11-25] MEDS ORDERED: FUROSEMIDE 100 MG/10 ML VIAL (J1940) IV ONE (09:00)
[2018-11-25] MEDS: CARVedilol 12.5 MG TAB PO SCH ×2 (09:53→20:14)
[2018-11-25] MEDS: DOCUSATE SODIUM 100 MG CAP PO SCH ×2 (09:53→20:14)
[2018-11-25] MEDS: MAGNESIUM OXIDE 400 MG TAB (MAG-OX) PO SCH ×2 (09:54→20:13)
[2018-11-25] MEDS: NICOTINE 14 MG/24 HR TRANSDERMAL TD SCH (09:54)
[2018-11-25 10:01] LABS: HEMATOCRIT 26.3 % (42.0-52.0); HEMOGLOBIN 8.7 g/dl (13.5-17.5)
[2018-11-25 12:00] VITALS: BP 125/59
[2018-11-25] MEDS: FUROSEMIDE injection 250 MG in D5W 225 ML IV SCH (12:00)
--- NOTE | 2018-11-25 12:08 | REP ---
Renal bladder ultrasound for acute on chronic renal disease: Comparison is the abdomen and pelvis CT dated 06/26/2017. The right kidney measures 10.1 x 4.9 x 5.2 cm and is normal size. The left kidney measures 10.3 x 4.9 x 4.9 cm and is normal size. Renal cortical echogenicity is normal bilaterally. There is no hydronephrosis. There are no renal calculi. There are no solid or cystic renal masses. On the comparison CT there was a nonobstructive 6 mm right renal calculus. This calculus is not identified by ultrasound today. Bladder ultrasound: The pre void bladder volume is 441 ml. The postvoid bladder volume is 78 ml. Postvoid retention is 17%. No bladder wall masses or polyps are identified. Impression: Essentially negative renal and bladder ultrasound. Electronically Signed by Ahsan Warren MD 11/25/2018 12:00 P
--- NOTE | 2018-11-25 12:42 | IPNPDOC ---
Subjective Date Seen The patient was seen on 11/25/18. Subjective Chief Complaint/HPI Feels a little stronger however no change in breathing. Still SOB on minimal exertion. No fever or chills. HH stable. Received 2 units of PRBC. Objective Physical Examination General Exam: Positive: Alert, Cooperative, Mild Distress Eye Exam: Positive: PERRLA, Conjunctiva & lids normal, EOMI; Negative: Sclera icteric ENT Exam: Positive: Atraumatic, Mucous membr. moist/pink, Pharynx Normal Neck Exam: Positive: Supple, JVD Chest Exam: Positive: Rales, Diminished Heart Exam: Positive: Rate Normal, Regular Rhythm, Normal S1, Normal S2; Negative: Murmurs, Rubs Telemetry: Positive: No significant arrhythmia Abdomen Exam: Positive: Normal bowel sounds, Soft; Negative: Tenderness Extremity Exam: Positive: Edema, Swelling; Negative: Clubbing, Cyanosis, Normal pulses, Tenderness, Other Skin Exam: Positive: Nl turgor and temperature; Negative: Breakdown, Lesion Psych Exam: Positive: Mental status NL, Mood NL, Oriented x 3 Assessment /Plan Assessment 78 year old male with PMH of CKD stage 3 { creatinine 2.0 in May 2018}, Chronic systolic and diastolic heart failure, Last EF of 30%, Ischemic cardiomyopathy (presumed on the basis of regional wall motion abnormality on prior echocardiogram), 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 Non-rheumatic mitral valve regurgitation (moderate mitral regurgitation), Coronary artery disease ([place] vessel) without angina. Presumed diagnosis of coronary artery disease based on presence of regional wall motion abnormalities on echocardiogram, Pulmonary hypertension secondary to left heart failure. Non rheumatic tricuspid valve regurgitation, Right bundle branch block, Systemic hypertension, Obesity, Hyperlipidemia, Type 2 diabetes, Cigarette smoking. H/o GIB in 2006 from gastric prepyloric ulcer, Esophageal stricture presented to the ED after a fall in the street today. He has been having increasing SOB , fatigue and weakness for the past 2 to 3 weeks which really worsened in the last 3 days then today was was so SOB that he could not walk half a block to the bus stop. 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 2 passengers from the bus helped him up into the bus and he came to the transfer center from there the ambulance brought him to the ED. In the ED he was found to have a Hb of 7.7 and a creatinine of 3.4. His guaiac was positive. His Hb from PMD on 10/09/18 was 10.9 and on may 2018 was 11.8. He was admitted for CHF exacerbation , [place] on CKD and symptomatic anemia. Acute on Chronic Systolic and diastolic CHF exacerbation telemetry, last EF was 30% got 2 doses of 120 mg overnight with a net negative of 1400 ml till now. now given 100 mg bolus then started on lasix gtt this am. urinary cath I/O monitoring. 2 gm sodium diet with fluid restriction of 1.8 liters. Cardiology consult. ALKA on CKD stage 3 Due to cardiorenal syndrome baseline creatinine is about 2.0 got 2 doses of 120 mg overnight. with a net negative of 1400 ml till now. now iven 100 mg bolus then started on lasix gtt this am. Renal and bladder ultrasound reviewed. There is increased echogenecity bilateral kidneys. No features of obstruction will hold ACEI, ARBs, spironolactone Symptomatic anemia HH has been slowly going down over the past 6 months. was 11.8 in may 2018 was 10.9 in september 2018 patient is guaic positive but no overt hemetemesis of josue or hematochezia Patient does have h/o gastric ulcer and GIB in the past. Anemia probably a combination of anemia of CKD and slow GIB will check stool for occult blood. will check iron studies. will transfuse 2 units. Consulted GI for EGD today. CAD with ischemic cardiomyopathy will hold ASA now. will continue with betablocker with hold parameters. Diabetes continue with lispro and levemir FS AC and HS Hypertension controlled with some low numbers. will hold amlodipine and losartan continue with coreg with hold parameters Pulmonary hypertension with chronic right heart failure now in exacerbation due to exacerbation of left heart failure continue with lasix gtt. Valvular heart disease moderate mitral and tricuspid regurgitation Smoking discussed smoking cessation offered nicotine patch says will ask for it if he needs it. Gi prophylaxis will give IV pantoprazole as has h/o bleeding gastric ulcer. DVT TEDS and stockings Plan/VTE VTE Prophylaxis Ordered?: Yes VS, I&O, 24H, Fishbone Vital Signs/I&O Vital Signs Date Time Temp Pulse Resp B/P (MAP) Pulse Ox O2 Delivery O2 Flow Rate FiO2 11/25/18 09:53 57 120/62 11/25/18 08:00 98.8 18 96 11/24/18 14:15 Room Air I&O- Last 24 Hours up to 6 AM 11/25/18 06:00 Intake Total 120 ml Output Total 875 ml Balance -755 ml Laboratory Data 24H LABS Laboratory Tests 2 11/24/18 14:05: Immature Granulocyte % (Auto) 0.2, White Blood Count 4.7, Red Blood Count 2.39L, Hemoglobin 7.7L, Hematocrit 23.9L, Mean Corpuscular Volume 100.0H, Mean Corpuscular Hemoglobin 32.2, Mean Corpuscular Hemoglobin Concent 32.2, Red Cell Distribution Width 13.9, Platelet Count 138L, Neutrophils (%) (Auto) 50.7, Lymphocytes (%) (Auto) 39.0, Monocytes (%) (Auto) 7.3H, Eosinophils (%) (Auto) 2.4, Basophils (%) (Auto) 0.4, Neutrophils # (Auto) 2.4, Lymphocytes # (Auto) 1.8, Monocytes # (Auto) 0.3, Eosinophils # (Auto) 0.1, Basophils # (Auto) 0.0, Nucleated Red Blood Cells % (auto) 0.0, Anion Gap 12, Glomerular Filtration Rate 20.8L, Calcium Level 8.0L, Aspartate Amino Transf (AST/SGOT) 32, Alanine Aminotransferase (ALT/SGPT) 19, Alkaline Phosphatase 217H, Total Bilirubin 0.5, Direct Bilirubin 0.2, Total Creatine Kinase 96, Creatine Kinase MB 6.0H, Creatine Kinase MB Relative Index 5.94H, Troponin I < 0.02, VC-Mjk-G-Type Natriuretic Peptide 2282H, Total Protein 7.4, Albumin 2.8L, Albumin/Globulin Ratio 0.61L, Thyroid Stimulating Hormone (TSH) 2.050, Thyroxine (T4) 8.5 11/24/18 14:56: Blood Gas Bicarbonate Standard 16.3L, Arterial Blood pH 7.289L, Arterial Blood Partial Pressure CO2 33.2L, Arterial Blood Partial Pressure O2 139.6H, Arterial Blood Total CO2 16.6L, Arterial Blood HCO3 15.6L, Arterial Blood Base Excess - 10.1L, Arterial Blood Oxygen Saturation 99.1H 11/24/18 18:56: Iron Level 57L, Total Iron Binding Capacity 462H, Transferrin % Saturation 12.3L, Ferritin 26, Vitamin B12 Level 665, Folate 4.7L 11/24/18 20:42: Bedside Glucose (Misc Panel) 126H 11/25/18 04:12: Anion Gap 8, Glomerular Filtration Rate 21.0L, Blood Urea Nitrogen 61H, Creatinine 3.10H, Sodium Level 141, Potassium Level 4.7, Chloride Level 112H, Carbon Dioxide Level 21, Calcium Level 8.1L, Aspartate Amino Transf (AST/SGOT) 40H, Alanine Aminotransferase (ALT/SGPT) 21, Alkaline Phosphatase 206H, Total Bilirubin 0.7, Total Protein 6.9, Albumin 3.1L, Albumin/Globulin Ratio 0.82L 11/25/18 04:15: Nucleated Red Blood Cells % (auto) 0.0 11/25/18 11:53: Bedside Glucose (Misc Panel) 141H CBC/BMP Laboratory Tests 11/24/18 14:05 Red Blood Count 2.39 L, Mean Corpuscular Volume 100.0 H, Mean Corpuscular Hemoglobin 32.2, Mean Corpuscular Hemoglobin Concent 32.2, Red Cell Distribution Width 13.9, Neutrophils (%) (Auto) 50.7, Lymphocytes (%) (Auto) 39.0, Monocytes (%) (Auto) 7.3 H, Eosinophils (%) (Auto) 2.4, Basophils (%) (Auto) 0.4, Neutrophils # (Auto) 2.4, Lymphocytes # (Auto) 1.8, Monocytes # (Auto) 0.3, Eosinophils # (Auto) 0.1, Basophils # (Auto) 0.0 11/24/18 21:50 11/25/18 04:12 Calcium Level 8.1 L, Aspartate Amino Transf (AST/SGOT) 40 H, Alanine Aminotrans ferase (ALT/SGPT) 21, Alkaline Phosphatase 206 H, Total Bilirubin 0.7, Total Protein 6.9, Albumin 3.1 L 11/25/18 04:15 Red Blood Count 2.74 L, Mean Corpuscular Volume 95.6, Mean Corpuscular Hemoglobin 32.1, Mean Corpuscular Hemoglobin Concent 33.6, Red Cell Distribution Width 15.1 H 11/25/18 09:47 SOBEIDA BURRIS MD November 25, 2018 12:42
[2018-11-25 15:46] LABS: HEMATOCRIT 26.2 % (42.0-52.0); HEMOGLOBIN 8.8 g/dl (13.5-17.5)
[2018-11-25 16:00] VITALS: BP 125/61
[2018-11-25] MEDS ORDERED: LIDOCAINE 2% INJ 100 MG/5 ML SDV (FOR ANES.) As Ordered ONE (17:07)
[2018-11-25] MEDS ORDERED: PROPOFOL 200 MG/20 ML VIAL As Ordered ONE (17:07)
[2018-11-25] MEDS ORDERED: fentaNYL 100 MCG/2 ML INJECTION (J3010) As Ordered ONE (17:08)
[2018-11-25] MEDS ORDERED: MIDAZOLAM INJ 2 MG/2 ML VIAL (J2250) As Ordered ONE (17:08)
[2018-11-25] MEDS ORDERED: ONDANSETRON 4MG/2ML VIAL (J2405) As Ordered ONE (17:08)
[2018-11-25] MEDS ORDERED: ePHEDrine SULFATE 25 MG/5 ML(5MG/ML) SYRINGE As Ordered ONE (18:04)
[2018-11-25] MEDS: FERROUS SULFATE 325MG TAB PO SCH (18:55)
[2018-11-25] MEDS: FOLIC ACID 1 MG TAB PO SCH (18:56)
--- NOTE | 2018-11-25 19:47 | ROOR ---
Patient Name: Alexei Malcolm Procedure Date: 11/25/2018 2:50 PM Date of : 1940 Age: 78 Gender: Male Note Status: Finalized Procedure: Upper GI endoscopy Indications: Heme positive stool Providers: Orlando CASSIDY MD Referring MD: 2. Inpatient 2. Inpatient Requesting Provider: Medicines: Monitored Anesthesia Care Complications: No immediate complications. Procedure: Pre-Anesthesia Assessment: - The heart rate, respiratory rate, oxygen saturations, blood pressure, adequacy of pulmonary ventilation, and response to care were monitored throughout the procedure. The Endoscope was introduced through the mouth, and advanced to the second part of duodenum. The upper GI endoscopy was accomplished without difficulty. The patient tolerated the procedure well. Findings: A widely patent Schatzki ring was found at the gastroesophageal junction. The examined esophagus was normal. A medium-sized hiatal hernia was present. The entire examined stomach was normal. Three diminutive angioectasias without bleeding were found in the second portion of the duodenum. Coagulation for bleeding prevention using argon beam at 0.8 liters/minute and 20 gorman was successful. Impression: - Widely patent Schatzki ring. - Otherwise normal esophagus. - Medium-sized hiatal hernia. - Otherwise normal stomach. - Three tiny (<1 mm) non-bleeding angioectasias in the duodenum (dubious significance). Treated with argon beam coagulation. - No specimens collected. Recommendation: - The tiny AVM's in duodenum are of dubious significance, but were ablated today. - Pt needs colonoscopy. This has been discussed with patient. Risks benefits and options discussed with him, but he refuses. - No ibuprofen, naproxen, or other non-steroidal anti-inflammatory drugs. - Recommend an iron supplement. - Observe patient's clinical course. - Return to primary care physician. - Pt at this time does not need a follow up with me. - I will sign off today, please call me PRN Orlando Cassidy MD Orlando CASSIDY MD 11/25/2018 6:14:52 PM Electronically signed by Orlando CASSIDY MD Number of Addenda: 0 Note Initiated On: 11/25/2018 2:50 PM Estimated Blood Loss: Estimated blood loss: none.
[2018-11-25 20:00] VITALS: BP 135/66
[2018-11-25 21:59] LABS: HEMATOCRIT 25.2 % (42.0-52.0); HEMOGLOBIN 8.3 g/dl (13.5-17.5)
--- NOTE | 2018-11-25 22:13 | CR ---
DATE OF CONSULTATION: 11/25/2018 REFERRING PHYSICIAN: Dr. Kayla Salinas REASON FOR CONSULTATION: Acute on chronic systolic and diastolic heart failure. HISTORY OF THE PRESENT ILLNESS: Mr. Alexei Malcolm is a pleasant obese man with chronic systolic and diastolic heart failure secondary to ischemic cardiomyopathy, coronary artery disease, prior myocardial infarction, moderate mitral regurgitation (non-rheumatic), right heart failure, severe pulmonary hypertension, moderate tricuspid regurgitation, right bundle branch block, abnormal ECG, systemic hypertension, hyperlipidemia, type 2 diabetes, jaundice, and cigarette smoking. He presents to hospital 11/24/2018 with a 2-week history of progressive exertional dyspnea to the point of dyspnea with minimal activity. No orthopnea or paroxysmal nocturnal dyspnea (PND). He has chronic bilateral leg edema and has noticed increased leg swelling for at least a few weeks. No pain, pressure, tightness, squeezing or heaviness with or without exertion in the chest. No palpitations. No presyncope or syncope. No embolic events. No intermittent claudication. The patient's regadenoson stress SPECT myocardial perfusion imaging study from September 2017 showed a mostly fixed with very mild reversibility of a large, moderate intensity myocardial perfusion defect involving the anterior, lateral, inferior, and apical portions of the left ventricle consistent with prior infarction involving the left anterior descending, left circumflex, and right coronary artery territories. Quantitative perfusion analysis showed percent reversibility of the left ventricle as follows: Wells 35%, lateral 4%, inferior 6%, septal 0%, anterior 6%, total LV myocardium 9%. The left ventricle is dilated with multiple regional wall motion abnormalities. Gated SPECT LVEF was 37%. A basal, mid, and apical and anterior segments were moderately hypokinetic; the basal, mid, and apical anterolateral segments were moderately hypokinetic; the basal, mid, and apical inferolateral segments were moderately hypokinetic; the basal, mid, and apical inferior segments were severely hypokinetic; the basal and mid inferoseptal segments were moderately hypokinetic; the apical inferoseptal segment was normokinetic; the basal, mid, and apical anterolateral segments were moderately hypokinetic; the apical cap segments were severely hypokinetic. Echocardiogram Doppler 04/14/2017 showed normal LV size at end-diastole with mild dilatation of the left ventricle at end-systole. Normal LV wall thickness. Akinesis of the inferobasal segment of the left ventricle and severe hypokinesis of the mid inferior LV segment; moderate global hypokinesis of the left ventricle. Severe reduction in overall LV systolic function. LVEF 30%. Pseudonormal LV diastolic filling pattern (grade 2 LV diastolic dysfunction). Presence of a B-notch on the mitral valve M-mode pattern suggestive of elevated left ventricle end-diastolic pressure. Suggestive of elevated mean left ventricle diastolic pressure. Normal appearing mitral leaflets with moderate mitral regurgitation. Mild aortic valve sclerosis of a 3-cusp aortic valve. Moderate reduction in right ventricle systolic function. Normal right ventricle size. Moderate tricuspid regurgitation with structurally normal appearing tricuspid leaflets. Severe elevation of estimated right ventricle systolic pressure. Elevated central venous pressure of at least 20 mmHg. Inferior vena cava plethora. No pericardial effusion. Moderately technically difficult echocardiogram. ADVERSE DRUG REACTIONS: No known adverse drug reactions. MEDICATIONS PRIOR TO ADMISSION: - acetaminophen/diphenhydramine one nightly - amlodipine 5 mg daily - aspirin 81 mg daily - carvedilol 12.5 mg twice a day - Levemir insulin 30 units subcu nightly as needed - losartan 100 mg nightly - magnesium oxide 400 mg twice a day - metformin 1000 mg nightly - omeprazole 20 mg every evening - torsemide 20 mg by mouth twice a day PATIENT'S CURRENT MEDICATIONS IN THE HOSPITAL ARE FOLLOWS: - albuterol nebulizers 2.5 mg every 4 hours as needed - carvedilol 12.5 mg twice a day - dextrose 50% as needed - Colace 100 mg twice a day - ferrous sulfate 325 mg by mouth daily - folic acid 1 mg by mouth daily - furosemide continuous infusion 10 mg per hour IV - Glucagon as directed - glucose 16 grams as directed as needed - Humalog insulin before meals and nightly per sliding scale - magnesium oxide 400 mg twice a day - nicotine patch 14 mg transdermal daily - Protonix 40 mg IV every 12 hours OTHER PAST MEDICAL AND SURGICAL HISTORY: Systemic hypertension, hypercholesterolemia, chronic systolic and diastolic heart failure, ischemic cardiomyopathy, diabetes - on insulin, coronary artery disease, prior myocardial infarcts, moderate mitral regurgitation (non-rheumatic), right heart failure, severe pulmonary hypertension, moderate tricuspid regurgitation, abnormal ECG, right bundle branch block, obesity, hyperlipidemia, jaundice, cigarette smoking. Past surgery: Stomach ulcer. FAMILY HISTORY: Father of a heart attack at age 62, mother at age 61 from heart disease. One brother at age 81 from cancer. One brother with heart disease, another brother of myocardial infarction. One sister in her 60s from cancer. Another sister from lung cancer. Another sister with diabetes. SOCIAL HISTORY: Single. Does not live with anybody. Retired. Independent with activities of daily living. Current smoker. No alcohol. No illicit drugs. Currently smokes about half a pack a day of cigarettes. REVIEW OF SYSTEMS: Wears glasses. Nocturia up to four times a night. Shortness of breath as per history of the present illness above. Heat intolerance. Easy bruising tendency. No anxiety, panic attacks or depression. All other 10-point review of systems questions negative. PHYSICAL EXAMINATION: Pleasant, obese, elderly man who appears his chronologic age, who is not in any respiratory or psychologic distress. Height 72 inches, weight 114.7 kg, body mass index (BMI) 34.3. No gross head, facial or skeletal deformities. No conjunctival pallor, scleral icterus or xanthomas. Edentulous. Oral mucosa was moist and without pallor or cyanosis. Trachea midline. No palpable thyroid. Jugular venous pulsations were to the angle of the jaw with the patient sitting up at 90 degrees. Respiratory expansion was good. Breath sound intensity was fair. Some mild wheezes were present. No crackles. No palpable apex beat. No left parasternal lifts, heaves, thrills or palpable heart sounds. First heart sound normal. Second heart sound was widely split. No S3 or S4 appreciated. Grade 1 pansystolic murmur at the apex and along the lower left parasternal border. Carotids were normal in volume and contour and without bruits. No palpable abdominal aorta but difficult to palpate due to abdominal obesity. No abdominal bruits. Femoral pulses normal. Pedal pulses normal. 2 mm of pitting edema was present bilaterally at mid and distal tibia level bilaterally. No varicose veins. No clubbing, nail bed cyanosis or splinter hemorrhages. Bowel sounds positive. Abdomen was soft, nontender with normal bowel sounds. No abdominal masses palpable. No hepatomegaly or splenomegaly. Liver span difficult to assess due to abdominal obesity. Stool for occult blood not presently indicated. Gait was slow. No kyphosis or scoliosis. Gross motor strength and tone normal. No skin lesions, skin pallor or icterus. Oriented to person, place and time. Mood and affect normal. INVESTIGATIONS: PA and lateral chest x-ray 11/24/2018 was reviewed. I reviewed the chest x-ray independently myself. There is cardiomegaly. Presence of pulmonary vascular redistribution. Mild blunting of the costophrenic angles suggestive of small pleural effusions. Enlarged left and right pulmonary arteries. Calcification in the aortic arch. No interstitial or alveolar edema. Pulmonary vascular redistribution is present. Some pericardial cuffing was present. Laboratory work 11/24/2018 was reviewed: Hemoglobin 7.5, hematocrit 25.9, WBC 4.7, platelets 138. Sodium 139, potassium 5.1, chloride 110, CO2 17, BUN 62, creatinine 3.12, estimated GFR 20.8, glucose 129, total bilirubin normal, direct bilirubin normal, AST normal, ALT normal, alkaline phosphatase elevated at 217, CPK 96, CPK-MB 6.0, troponin I less than 0.02, NT-pro-BNP 2282, total protein 7.4, albumin 2.8, B12 665 (normal), folate low at 4.7, TSH 2.050, T4 8.5 (normal). Laboratory work 11/25/2018 was reviewed: Sodium 141, potassium 4.7, chloride 112, CO2 21, BUN 61, creatinine 3.10, estimated GFR 21.0, glucose 85, albumin 3.1. ASSESSMENT AND RECOMMENDATIONS: 1. Heart failure (systolic and diastolic, acute on chronic). Heart failure secondary to ischemic cardiomyopathy secondary to prior myocardial infarctions. Contributing to this patient's decompensation is that the patient has developed anemia and has worsened renal function. He is presently quite decompensated. He is responding well to continuous IV furosemide infusion. The degree of renal dysfunction (stage IV level of chronic kidney disease) is such that I wish to avoid use of angiotensin-converting enzyme (YOLA) inhibitor, ARB, or angiotension receptor neprilysin inhibitor at this time. If the patient's renal function improves, then I would like to consider use of angiotensin receptor neprilysin inhibitor (sacubitril/valsartan). Because of the advanced renal dysfunction, I wish to avoid use of spironolactone at this time. Continue carvedilol 12.5 mg twice a day, furosemide 10 mg per hour IV. His blood pressure is currently at a target of less than 120 systolic/80 diastolic and, therefore, I will not add hydralazine/long-acting organic nitrates at this time. I will place the patient on a 2.5 gram sodium and 1800 mL per day oral fluid restriction. A consult will be placed to cardiac rehabilitation. 2. Ischemic cardiomyopathy. As per heart failure category above. 3. Coronary artery disease ([place] vessel). No anginal symptoms. Results of cardiac nuclear stress test as above. Continue medical therapy. Continue carvedilol at the current dosage. No YOLA inhibitor or ARB at this time due to advanced renal dysfunction. Because of the patient's anemia and history of prior gastric ulcer, I will hold off on use of aspirin at this time. Await results of endoscopy performed earlier this evening. 4. Moderate mitral regurgitation (non-rheumatic) secondary to ischemic cardiomyopathy. Stable. 5. Right heart failure. Right heart failure secondary to left heart failure and to severe pulmonary hypertension. Decompensated. Continue IV furosemide. 6. Severe pulmonary hypertension. Continue IV furosemide. Avoid hypoxemia. 7. Abnormal ECG. ECG on file as listed in EMR 11/24/2018; present I am unable to open this up in the EMR. 8. Right bundle branch block (stable). No near syncope or syncope. 9. Systemic hypertension. Blood pressure presently controlled. Continue IV furosemide and continue carvedilol. 10. Hyperlipidemia. Patient is not presently on statin therapy. I do not see any recent lipid profiles. Suggest a lipid profile be obtained. 11. 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 As per cardiac nuclear stress test above. As per ischemic cardiomyopathy and coronary artery disease categories above.
[2018-11-26] VITALS (7 sets, daily range): BP systolic 124–137; BP diastolic 60–65
[2018-11-26 05:49] LABS: BASO % 0.4 % (0.0-1.0); EOS # 0.1 10^3/uL (0.0-0.50); EOS % 2.4 % (0.0-3.0); HEMATOCRIT 26.3 % (42.0-52.0); HEMOGLOBIN 8.8 g/dl (13.5-17.5); LYMPH # 2.3 10^3/uL (1.5-4.5); LYMPH % 42.7 % (24.0-44.0); MEAN CORPUSCULAR HEMOGLOBIN 32.1 pg (27.0-33.0); MEAN CORPUSCULAR HGB CONC 33.5 g/dl (32.0-36.5); MONO # 0.6 10^3/uL (0.0-0.8); MONO % 11.4 % (0.0-5.0); NEUTROPHILS # 2.3 10^3/uL (1.8-7.7); NEUTROPHILS % 42.9 % (36.0-66.0); PLATELET COUNT, AUTOMATED 121 10^3/uL (150-450); RED BLOOD COUNT 2.74 10^6/uL (4.30-6.10); WHITE BLOOD COUNT 5.4 10^3/uL (4.0-10.0)
[2018-11-26 06:05] LABS: CALCIUM LEVEL 8.1 MG/DL (8.8-10.2); CREATININE FOR GFR 3.24 MG/DL (0.70-1.30); GLOMERULAR FILTRATION RATE 19.9 (>42); POTASSIUM SERUM 4.5 MEQ/L (3.5-5.1)
[2018-11-26] MEDS: NICOTINE 7 MG/24 HR TRANSDERMAL TD SCH (09:00)
[2018-11-26] MEDS: CARVedilol 12.5 MG TAB PO SCH ×2 (09:00→20:04)
[2018-11-26] MEDS: HumaLOG INSULIN (NovoLOG) PER UNIT SC SCH ×4 (09:10→20:08)
[2018-11-26] MEDS: PANTOPRAZOLE 40MG TAB (PROTONIX) PO SCH (09:11)
[2018-11-26] MEDS: DOCUSATE SODIUM 100 MG CAP PO SCH ×2 (09:11→20:04)
[2018-11-26] MEDS: FERROUS SULFATE 325MG TAB PO SCH (09:11)
[2018-11-26] MEDS: FOLIC ACID 1 MG TAB PO SCH (09:13)
[2018-11-26] MEDS: ASPIRIN 81 MG ENTERIC TAB PO SCH (09:14)
[2018-11-26] MEDS: MAGNESIUM OXIDE 400 MG TAB (MAG-OX) PO SCH ×2 (09:14→20:04)
--- NOTE | 2018-11-26 10:42 | IPNPDOC ---
Subjective Date Seen The patient was seen on 11/26/18. Subjective Chief Complaint/HPI Says SOB is getting better. Had EGD yesterday. Patient refused colonoscopy. Making good urine. His weight has dropped by 5 kgs . He has a cumulative negative balance of 3.1L since admission. Objective Physical Examination General Exam: Positive: Alert, Cooperative, Mild Distress Eye Exam: Positive: PERRLA, Conjunctiva & lids normal, EOMI; Negative: Sclera icteric ENT Exam: Positive: Atraumatic, Mucous membr. moist/pink, Pharynx Normal Neck Exam: Positive: Supple, JVD Chest Exam: Positive: Rales, Diminished Heart Exam: Positive: Rate Normal, Regular Rhythm, Normal S1, Normal S2; Negative: Murmurs, Rubs Telemetry: Positive: No significant arrhythmia Abdomen Exam: Positive: Normal bowel sounds, Soft; Negative: Tenderness Extremity Exam: Positive: Edema, Swelling; Negative: Clubbing, Cyanosis, Tenderness, Other Skin Exam: Positive: Nl turgor and temperature; Negative: Breakdown, Lesion Psych Exam: Positive: Mental status NL, Mood NL, Oriented x 3 Assessment /Plan Assessment 78 year old male with PMH of CKD stage 3 { creatinine 2.0 in May 2018}, Chronic systolic and diastolic heart failure, Last EF of 30%, Ischemic cardiomyopathy (presumed on the basis of regional wall motion abnormality on prior echocardiogram), 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 Non-rheumatic mitral valve regurgitation (moderate mitral regurgitation), Coronary artery disease ([place] vessel) without angina. Presumed diagnosis of coronary artery disease based on presence of regional wall motion abnormalities on echocardiogram, Pulmonary hypertension secondary to left heart failure. Non rheumatic tricuspid valve regurgitation, Right bundle branch block, Systemic hypertension, Obesity, Hyperlipidemia, Type 2 diabetes, Cigarette smoking. H/o GIB in 2006 from gastric prepyloric ulcer, Esophageal stricture presented to the ED after a fall in the street today. He has been having increasing SOB , fatigue and weakness for the past 2 to 3 weeks which really worsened in the last 3 days then today was was so SOB that he could not walk half a block to the bus stop. He was on his way to [employer] to sampler pickup his water pills which was on back order so he missed 2 days and was walking from his home to the bus stop which was half a block and could not make it he was so SOB and weak and fell on the street.The bus had stopped for him. 2 passengers from the bus helped him up into the bus and he came to the transfer center from there the ambulance brought him to the ED. In the ED he was found to have a Hb of 7.7 and a creatinine of 3.4. His guaiac was positive. His Hb from PMD on 10/09/18 was 10.9 and on may 2018 was 11.8. He was admitted for CHF exacerbation , [place] on CKD and symptomatic anemia. Acute on Chronic Systolic and diastolic CHF exacerbation telemetry, last EF was 30%, New Echo ordered. on lasix gtt urinary cath I/O monitoring. DASH diet with 1.8 liters. Cardiology consult appreciated. ALKA on CKD stage 3 Due to cardiorenal syndrome baseline creatinine is about 2.0. Remains at 3.2 no change from yesterday continue on diuresis with lasix gtt. Renal and bladder ultrasound reviewed. There is increased echogenicity bilateral kidneys. No features of obstruction will hold ACEI, ARBs, spironolactone Symptomatic anemia HH has been slowly going down over the past 6 months. was 11.8 in may 2018 was 10.9 in september 2018 patient is guaic positive but no overt hematemesis of josue or hematochezia EGD on 11/25/18 : Widely patent Schatzki ring. Otherwise normal esophagus. Medium-sized hiatal hernia. Otherwise normal stoma. Three tiny (<1 mm) non- bleeding angioectasias in duodenum (dubious significance). Treated with argon beam coagulation. Anemia probably a combination of anemia of CKD and slow GIB Patient needs colonoscopy but has refused. Has iron deficiency and also folate deficiency will start supplementation received 2 units on PRBC. CAD with ischemic cardiomyopathy will hold ASA now. will continue with betablocker with hold parameters. Diabetes continue with lispro and levemir FS AC and HS Hypertension controlled with some low numbers. will hold amlodipine and losartan continue with coreg with hold parameters Pulmonary hypertension with chronic right heart failure now in exacerbation due to exacerbation of left heart failure continue with lasix gtt. Valvular heart disease moderate mitral and tricuspid regurgitation Smoking discussed smoking cessation using nicotine patch . Gi prophylaxis will give IV pantoprazole DVT TEDS and stockings Plan/VTE VTE Prophylaxis Ordered?: Yes VS, I&O, 24H, Fishbone Vital Signs/I&O Vital Signs Date Time Temp Pulse Resp B/P (MAP) Pulse Ox O2 Delivery O2 Flow Rate FiO2 11/26/18 09:00 58 11/26/18 07:48 98.3 18 137/64 (88) 96 11/25/18 18:18 4 11/24/18 14:15 Room Air I&O- Last 24 Hours up to 6 AM 11/26/18 06:00 Intake Total 1460 ml Output Total 3650 ml Balance -2190 ml Laboratory Data 24H LABS Laboratory Tests 2 11/25/18 11:53: Bedside Glucose (Misc Panel) 141H 11/25/18 17:27: Bedside Glucose (Misc Panel) 99 11/25/18 18:16: Bedside Glucose (Misc Panel) 96 11/25/18 20:17: Bedside Glucose (Misc Panel) 163H 11/26/18 05:21: Immature Granulocyte % (Auto) 0.2, White Blood Count 5.4, Red Blood Count 2.74L, Hemoglobin 8.8L, Hematocrit 26.3L, Mean Corpuscular Volume 96.0, Mean Corpuscular Hemoglobin 32.1, Mean Corpuscular Hemoglobin Concent 33.5, Red Cell Distribution Width 15.2H, Platelet Count 121L, Neutrophils (%) (Auto) 42.9, Lymphocytes (%) (Auto) 42.7, Monocytes (%) (Auto) 11.4H, Eosinophils (%) (Auto) 2.4, Basophils (%) (Auto) 0.4, Neutrophils # (Auto) 2.3, Lymphocytes # (Auto) 2.3, Monocytes # (Auto) 0.6, Eosinophils # (Auto) 0.1, Basophils # (Auto) 0.0, Nucleated Red Blood Cells % (auto) 0.0, Anion Gap 9, Glomerular Filtration Rate 19.9L, Blood Urea Nitrogen 64H, Creatinine 3.24H, Sodium Level 141, Potassium Level 4.5, Chloride Level 110H, Carbon Dioxide Level 22, Calcium Level 8.1L, Magnesium Level 2.0 CBC/BMP Laboratory Tests 11/25/18 15:35 11/25/18 21:49 11/26/18 05:21 Red Blood Count 2.74 L, Mean Corpuscular Volume 96.0, Mean Corpuscular Hemoglobin 32.1, Mean Corpuscular Hemoglobin Concent 33.5, Red Cell Distribution Width 15.2 H, Neutrophils (%) (Auto) 42.9, Lymphocytes (%) (Auto) 42.7, Monocytes (%) (Auto) 11.4 H, Eosinophils (%) (Auto) 2.4, Basophils (%) (Auto) 0.4, Neutrophils # (Auto) 2.3, Lymphocytes # (Auto) 2.3, Monocytes # (Auto) 0.6, Eosinophils # (Auto) 0.1, Basophils # (Auto) 0.0, Calcium Level 8.1 L SOBEIDA BURRIS MD November 26, 2018 10:42
[2018-11-26] MEDS: FUROSEMIDE injection 250 MG in D5W 225 ML IV SCH (11:30)
--- NOTE | 2018-11-26 16:49 | IPN ---
DATE: 11/26/2018 TIME: 4:23 p.m. SUBJECTIVE: Patient reports he was able to ambulate in the hallway with mild shortness of breath on exertion. No orthopnea or paroxysmal nocturnal dyspnea (PND). No chest pain or chest discomfort. No palpitations. No dizziness or lightheadedness. He feels that he is feeling better overall. PHYSICAL EXAMINATION: Temperature 97.9, pulse 62 (regular), respiratory rate 18, blood pressure (BP) 133/60, oxygen saturation 99% on oxygen 4 liters by nasal cannula. Jugular venous pulsations were to the angle of the jaw with the patient sitting up at 90 degrees. No crackles or wheezes. Air entry was fair. First and second heart sounds were diminished. No S3, S4 were appreciated. Grade 1 pansystolic murmur at the apex. Abdomen was obese, soft, nontender with normal bowel sounds. Pitting edema of 3 cm was present at mid tibial and distal tibial levels bilaterally. Normal mood and affect. Speech was normal. Laboratory work 11/26/2018 showed sodium 141, potassium 4.5, chloride 110, CO2 of 22, BUN 64, creatinine 3.24, estimated GFR 19.9, glucose 104, magnesium 2.0. ASSESSMENT AND PLAN: 1. Heart failure (systolic and diastolic, acute on chronic). Patient's weight today is 111.8 kg, representing a 2.9 kg drop over the weight recorded yesterday. He was net-negative 1115 mL for the 24 hours of 10/26/2018. So far today he is net negative 1475 mL. He is currently [place] Heart Association (NYHA) functional class III. He remains volume overloaded. Blood pressure is controlled. Continue carvedilol 12.5 mg twice a day and furosemide 10 mg per hour intravenous (IV). His renal function is quite significantly impaired and is remaining stable; therefore, it is unlikely that he would be able to tolerate an angiotensin-converting enzyme inhibitor (ACEI) or angiotensin receptor sukh (ARB) or angiotensin receptor neprilysin (ARNI) or mineralocorticoid receptor antagonist at this time. 2. Ischemic cardiomyopathy, as per heart failure category above. 3. Coronary artery disease (CAD). 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 Continue carvedilol and aspirin. 4. Moderate mitral regurgitation (nonrheumatic). A followup echocardiogram Doppler has been completed, and I will review this later. 5. Right heart failure. Patient remains decompensated. Right heart failure is secondary to left heart failure and secondary to severe pulmonary hypertension. 6. Severe pulmonary hypertension. Patient has right heart failure. Continue with diuresis. Continue oxygen. 7. Abnormal ECG, stable. 8. Right bundle branch block, stable. 9. Systemic hypertension. Blood pressure controlled. Continue carvedilol and furosemide IV. 10. Hyperlipidemia. Continue DASH diet. He is not presently on any lipid-lowering medication. No recent laboratory value is available for my review.
[2018-11-26] MEDS ORDERED: MOM 30ML SUSPENSION UDC PO ONE (17:15)
[2018-11-27 04:00] VITALS: BP 133/60
[2018-11-27] MEDS: HumaLOG INSULIN (NovoLOG) PER UNIT SC SCH ×4 (05:56→20:53)
[2018-11-27 06:07] LABS: BASO % 0.6 % (0.0-1.0); EOS # 0.2 10^3/uL (0.0-0.50); EOS % 3.3 % (0.0-3.0); HEMATOCRIT 26.7 % (42.0-52.0); HEMOGLOBIN 8.7 g/dl (13.5-17.5); LYMPH # 1.9 10^3/uL (1.5-4.5); LYMPH % 36.3 % (24.0-44.0); MEAN CORPUSCULAR HEMOGLOBIN 30.6 pg (27.0-33.0); MEAN CORPUSCULAR HGB CONC 32.6 g/dl (32.0-36.5); MONO # 0.7 10^3/uL (0.0-0.8); MONO % 13.4 % (0.0-5.0); NEUTROPHILS # 2.4 10^3/uL (1.8-7.7); NEUTROPHILS % 46.2 % (36.0-66.0); PLATELET COUNT, AUTOMATED 128 10^3/uL (150-450); RED BLOOD COUNT 2.84 10^6/uL (4.30-6.10); WHITE BLOOD COUNT 5.2 10^3/uL (4.0-10.0)
--- NOTE | 2018-11-27 06:15 | ECHO ---
DATE OF STUDY: 11/26/2018 INDICATION: Acute on chronic systolic and diastolic heart failure. HEIGHT: 72 inches. WEIGHT: 112 kg. 2-D MEASUREMENTS: Aortic annulus: 2.0 cm Aortic root: 3.4 cm Left atrium: 4.7 cm Ventricular septum: 1.19 cm Posterior wall: 1.21 cm Left ventricle diastole: 4.4 cm Inferior vena cava: 2.6 cm with marked reduction of respiratory variation Left atrial volume index: 34 DOPPLER MEASUREMENTS: Aortic valve velocity: 134 cm/sec LVOT velocity: 79.7 cm/sec LVOT VTI: 21.7 cm Moderate mitral regurgitation Mitral E velocity: 113 cm/sec Mitral A velocity: 79.0 cm/sec Mitral deceleration time: 285 ms Mild tricuspid regurgitation Estimated right ventricular systolic pressure at least 50 mmHg assuming a right atrial pressure of at least 20 mmHg Mild pulmonic regurgitation MITRAL ANNULAR TISSUE DOPPLER: E prime septal: 3.7 cm/sec E prime lateral: 4.6 cm/sec DESCRIPTION: The rhythm was sinus bradycardia. This was a moderately technically difficult echocardiogram. No pericardial effusion. This was a 2-D, M-mode, color flow Doppler and pulse wave Doppler examination and included mitral annular tissue Doppler. CONCLUSIONS: 1. Borderline concentric left ventricle hypertrophy. Normal regional LV wall motion and wall thickening. Normal LV systolic function. LVEF 60% by visual estimate. Grade 2 LV diastolic dysfunction (pseudo normal LV filling pattern). 2. Mild left atrial dilatation by left atrial volume index. 3. Moderate aortic valve sclerosis of a 3-cuspid aortic valve. No aortic stenosis or regurgitation. 4. Mild mitral annular calcification. Moderate mitral regurgitation. 5. Suggestive of moderate elevation of pulmonary artery systolic pressure (at least 50 mmHg). Normal right ventricle size and systolic function. Structurally appearing normal tricuspid leaflets. Mild tricuspid regurgitation. 6. 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 This was suggestive of elevated central venous pressure of at least 20 mmHg.
[2018-11-27 06:27] LABS: CALCIUM LEVEL 8.4 MG/DL (8.8-10.2); CREATININE FOR GFR 3.1 MG/DL (0.70-1.30); POTASSIUM SERUM 4.2 MEQ/L (3.5-5.1)
[2018-11-27 08:00] VITALS: BP 145/66
[2018-11-27] MEDS ORDERED: MOM 30ML SUSPENSION UDC PO ONE (08:00)
[2018-11-27] MEDS: CARVedilol 12.5 MG TAB PO SCH ×2 (09:00→20:53)
[2018-11-27] MEDS: NICOTINE 7 MG/24 HR TRANSDERMAL TD SCH ×2 (09:00→09:01)
[2018-11-27] MEDS: FERROUS SULFATE 325MG TAB PO SCH (09:01)
[2018-11-27] MEDS: DOCUSATE SODIUM 100 MG CAP PO SCH ×2 (09:01→20:53)
[2018-11-27] MEDS: FOLIC ACID 1 MG TAB PO SCH (09:01)
[2018-11-27] MEDS: MAGNESIUM OXIDE 400 MG TAB (MAG-OX) PO SCH ×2 (09:01→20:55)
[2018-11-27] MEDS: ASPIRIN 81 MG ENTERIC TAB PO SCH (09:01)
[2018-11-27] MEDS: PANTOPRAZOLE 40MG TAB (PROTONIX) PO SCH (09:04)
[2018-11-27] MEDS: FUROSEMIDE injection 250 MG in D5W 225 ML IV SCH (09:05)
--- NOTE | 2018-11-27 11:41 | IPNPDOC ---
Subjective Date Seen The patient was seen on 11/27/18. Subjective Chief Complaint/HPI Says SOB is better. Had EGD. has agreed to colonoscopy and going for it tomorrow. Making good urine. His weight has dropped by 5 kgs . He has a cumulative negative balance of 4.4L since admission. Objective Physical Examination General Exam: Positive: Alert, Cooperative, Mild Distress Eye Exam: Positive: PERRLA, Conjunctiva & lids normal, EOMI ENT Exam: Positive: Atraumatic, Mucous membr. moist/pink, Pharynx Normal Neck Exam: Positive: Supple, JVD Chest Exam: Positive: Rales, Diminished Heart Exam: Positive: Rate Normal, Regular Rhythm, Normal S1, Normal S2 Telemetry: Positive: No significant arrhythmia Abdomen Exam: Positive: Normal bowel sounds, Soft Extremity Exam: Positive: Edema, Swelling Skin Exam: Positive: Nl turgor and temperature Psych Exam: Positive: Mental status NL, Mood NL, Oriented x 3 Assessment /Plan Assessment 78 year old male with PMH of CKD stage 3 { creatinine 2.0 in May 2018}, Chronic systolic and diastolic heart failure, Last EF of 30%, Ischemic cardiomyopathy (presumed on the basis of regional wall motion abnormality on prior echocardiogram), Right heart failure secondary to left heart failure. Non-rheumatic mitral valve regurgitation (moderate mitral regurgitation), Coronary artery disease ([place] vessel) without angina. Presumed diagnosis of coronary artery disease based on presence of regional wall motion abnormalities on echocardiogram, Pulmonary hypertension secondary to left heart failure. Non rheumatic tricuspid valve regurgitation, Right bundle branch block, Systemic hypertension, Obesity, Hyperlipidemia, Type 2 diabetes, Cigarette smoking. H/o GIB in 2006 from gastric prepyloric ulcer, Esophageal stricture presented to the ED after a fall in the street today. He has been having increasing SOB , fatigue and weakness for the past 2 to 3 weeks which really worsened in the last 3 days then today was was so SOB that he could not walk half a block to the bus stop. He was on his way to [employer] to pick out hand his water pills which was on back order so he missed 2 days and was walking from his home to the bus stop which was half a block and could not make it he was so SOB and weak and fell on the street.The bus had stopped for him. 2 passengers from the bus helped him up into the bus and he came to the transfer center from there the ambulance brought him to the ED. In the ED he was found to have a Hb of 7.7 and a creatinine of 3.4. His guaiac was positive. His Hb from PMD on 10/09/18 was 10.9 and on may 2018 was 11.8. He was admitted for CHF exacerbation , [place] on CKD and symptomatic anemia. Acute on Chronic Systolic and diastolic CHF exacerbation telemetry, last EF was 30%, New Echo ordered. on lasix gtt urinary cath I/O monitoring. DASH diet with 1.8 liters. Cardiology consult appreciated. ALKA on CKD stage 3 Due to cardiorenal syndrome baseline creatinine is about 2.0. Remains at 3.2 no change from yesterday continue on diuresis with lasix gtt. Renal and bladder ultrasound reviewed. There is increased echogenicity bilateral kidneys. No features of obstruction will hold ACEI, ARBs, spironolactone Symptomatic anemia HH has been slowly going down over the past 6 months. was 11.8 in may 2018 was 10.9 in september 2018 patient is guaic positive but no overt hematemesis of josue or hematochezia EGD on 11/25/18 : Widely patent Schatzki ring. Otherwise normal esophagus. Medium-sized hiatal hernia. Otherwise normal stoma. Three tiny (<1 mm) non- bleeding angioectasias in duodenum (dubious significance). Treated with argon beam coagulation. Colonoscopy on 11/28/18 Anemia probably a combination of anemia of CKD and slow GIB Has iron deficiency and also folate deficiency will start supplementation received 2 units on PRBC. CAD with ischemic cardiomyopathy will hold ASA now. will continue with betablocker with hold parameters. Diabetes continue with lispro and levemir FS AC and HS Hypertension controlled with some low numbers. will hold amlodipine and losartan continue with coreg with hold parameters Pulmonary hypertension with chronic right heart failure now in exacerbation due to exacerbation of left heart failure continue with lasix gtt. Valvular heart disease moderate mitral and tricuspid regurgitation Smoking discussed smoking cessation using nicotine patch . Gi prophylaxis will give IV pantoprazole DVT TEDS and stockings Plan/VTE VTE Prophylaxis Ordered?: Yes VS, I&O, 24H, Fishbone Vital Signs/I&O Vital Signs Date Time Temp Pulse Resp B/P (MAP) Pulse Ox O2 Delivery O2 Flow Rate FiO2 11/27/18 09:00 51 145/66 5/16/19 08:00 98.0 18 98 11/25/18 18:18 4 11/24/18 14:15 Room Air I&O- Last 24 Hours up to 6 AM 11/27/18 06:00 Intake Total 1320 ml Output Total 3000 ml Balance -1680 ml Laboratory Data 24H LABS Laboratory Tests 2 11/26/18 12:07: Bedside Glucose (Misc Panel) 99 11/26/18 18:17: Bedside Glucose (Misc Panel) 161H 11/26/18 20:07: Bedside Glucose (Misc Panel) 146H 11/27/18 05:27: Immature Granulocyte % (Auto) 0.2, White Blood Count 5.2, Red Blood Count 2.84L, Hemoglobin 8.7L, Hematocrit 26.7L, Mean Corpuscular Volume 94.0, Mean Corpuscular Hemoglobin 30.6, Mean Corpuscular Hemoglobin Concent 32.6, Red Cell Distribution Width 14.7H, Platelet Count 128L, Neutrophils (%) (Auto) 46.2, Lymphocytes (%) (Auto) 36.3, Monocytes (%) (Auto) 13.4H, Eosinophils (%) (Auto) 3.3H, Basophils (%) (Auto) 0.6, Neutrophils # (Auto) 2.4, Lymphocytes # (Auto) 1.9, Monocytes # (Auto) 0.7, Eosinophils # (Auto) 0.2, Basophils # (Auto) 0.0, Nucleated Red Blood Cells % (auto) 0.0, Anion Gap 9, Glomerular Filtration Rate 21.0L, Blood Urea Nitrogen 61H, Creatinine 3.10H, Sodium Level 141, Potassium Level 4.2, Chloride Level 107, Carbon Dioxide Level 25, Calcium Level 8.4L CBC/BMP Laboratory Tests 11/27/18 05:27 Red Blood Count 2.84 L, Mean Corpuscular Volume 94.0, Mean Corpuscular Hemoglobin 30.6, Mean Corpuscular Hemoglobin Concent 32.6, Red Cell Distribution Width 14.7 H, Neutrophils (%) (Auto) 46.2, Lymphocytes (%) (Auto) 36.3, Monocytes (%) (Auto) 13.4 H, Eosinophils (%) (Auto) 3.3 H, Basophils (%) (Auto) 0.6, Neutrophils # (Auto) 2.4, Lymphocytes # (Auto) 1.9, Monocytes # (Auto) 0.7, Eosinophils # (Auto) 0.2, Basophils # (Auto) 0.0, Calcium Level 8.4 L SOBEIDA BURRIS MD November 27, 2018 11:41
[2018-11-27 12:00] VITALS: BP 148/65
[2018-11-27 16:00] VITALS: BP 138/70
[2018-11-27] MEDS ORDERED: GOLYTELY SOLN 4000 ML BTL PO ONE (17:00)
--- NOTE | 2018-11-27 17:29 | IPN ---
DATE: 11/27/2018 at 5:05 p.m. SUBJECTIVE: The patient reports shortness of breath when ambulating in the hallways in the progressive care unit. No orthopnea or PND. No chest pain or chest discomfort. No dizziness or lightheadedness. He is aware that he still has edema in both of his legs. PHYSICAL EXAMINATION: Temperature 97.3, pulse 53 (regular), respiratory rate 20, blood pressure 148/65, Oxygen saturation 99% on room air. Weight today 106.1 kg. Input/output for 24 hours 11/26/2018 showed the patient to be net negative 2,705 mL. Not in any respiratory or distress. Jugular venous pulsations were at 20 cm today with the patient sitting up at 90 degrees. Respiratory expansion effort was fair. No crackles or wheezes. First and second heart sounds were diminished. No S3 or S4 appreciated. Grade 1 pansystolic murmur at the apex. Abdomen was obese, soft and nontender. Normal bowel sounds. 4 mm of pitting edema was present at mid tibial level bilaterally. Oriented to person, place and time. Mood and affect were normal. INVESTIGATIONS: Laboratory work 11/27/2018 was reviewed: Sodium 141, potassium 4.2, chloride 107, CO2 27, BUN 61, creatinine 3.10, Estimated GFR 21.0, glucose 105. Echocardiogram Doppler 11/26/2018 has been reported under separate cover. It showed borderline concentric LVH with normal LV wall motion and wall thickening with normal LV systolic function (LVEF 60%), grade 2 LV diastolic dysfunction. Mild left atrial dilatation. Moderate aortic valve sclerosis without stenosis or regurgitation. Mild MAC with moderate mitral regurgitation, suggestive of moderate elevation of [place] systolic pressure (at least 50 mmHg). Mild TR. IVC dilatation suggestive of CVP of at least mmHg. ASSESSMENT AND RECOMMENDATIONS: 1. Heart failure was previously systolic and diastolic. The patient's heart failure is acute on chronic. The heart failure appears now to be diastolic based on the echocardiogram report. Continue IV furosemide and carvedilol at the current dosages. Due to severe renal dysfunction he is not a candidate for YOLA inhibitor or ARB. Continue IV furosemide. 2. Ischemic cardiomyopathy. I am questioning the accuracy of the diagnosis of ischemic cardiomyopathy now that the most recent echocardiogram suggest normal LV systolic function as per heart failure category above. 3. Coronary artery disease with infarcts identified by prior cardiac nuclear stress test. I am beginning to doubt the diagnosis of CAD and infarction given that the echocardiogram Doppler that was just performed in hospital showed normal LV systolic function. He has not had any prior cardiac catheterization. Continue aspirin and Carvedilol for now. 4. Moderate mitral regurgitation (non-rheumatic). Stable. 5. Right heart failure. Patient remains decompensated. Continue IV furosemide. 6. Pulmonary hypertension. Now considered to be moderate. Continue IV furosemide. 7. Abnormal ECG. Stable. 8. Right bundle branch block. Stable. 9. Systemic hypertension. Blood pressure controlled. Continue Carvedilol and furosemide IV. 10. Hyperlipidemia. Continue Dash diet.
[2018-11-27 20:00] VITALS: BP 152/68
[2018-11-27 23:59] VITALS: BP 151/67
[2018-11-28] VITALS (8 sets, daily range): BP systolic 109–158; BP diastolic 53–79
[2018-11-28] MEDS ORDERED: GOLYTELY SOLN 4000 ML BTL PO ONE (05:00)
[2018-11-28 05:51] LABS: BASO % 0.6 % (0.0-1.0); EOS # 0.3 10^3/uL (0.0-0.50); EOS % 5.5 % (0.0-3.0); HEMATOCRIT 30.2 % (42.0-52.0); LYMPH % 37.5 % (24.0-44.0); MEAN CORPUSCULAR HEMOGLOBIN 31.1 pg (27.0-33.0); MEAN CORPUSCULAR HGB CONC 33.1 g/dl (32.0-36.5); MEAN CORPUSCULAR VOLUME 93.8 fl (80.0-96.0); MONO # 0.6 10^3/uL (0.0-0.8); MONO % 10.9 % (0.0-5.0); NEUTROPHILS # 2.4 10^3/uL (1.8-7.7); NEUTROPHILS % 45.5 % (36.0-66.0); PLATELET COUNT, AUTOMATED 148 10^3/uL (150-450); RED BLOOD COUNT 3.22 10^6/uL (4.30-6.10); WHITE BLOOD COUNT 5.3 10^3/uL (4.0-10.0)
[2018-11-28 06:11] LABS: CALCIUM LEVEL 9.5 MG/DL (8.8-10.2); CREATININE FOR GFR 2.68 MG/DL (0.70-1.30); GLOMERULAR FILTRATION RATE 24.8 (>42); POTASSIUM SERUM 3.9 MEQ/L (3.5-5.1)
[2018-11-28] MEDS: HumaLOG INSULIN (NovoLOG) PER UNIT SC SCH ×4 (07:30→20:39)
[2018-11-28] MEDS: NICOTINE 7 MG/24 HR TRANSDERMAL TD SCH (09:00)
[2018-11-28] MEDS: CARVedilol 12.5 MG TAB PO SCH (09:00)
[2018-11-28] MEDS: DOCUSATE SODIUM 100 MG CAP PO SCH ×2 (09:00→20:39)
[2018-11-28] MEDS: MAGNESIUM OXIDE 400 MG TAB (MAG-OX) PO SCH ×2 (09:06→20:39)
[2018-11-28] MEDS: FOLIC ACID 1 MG TAB PO SCH (09:06)
[2018-11-28] MEDS: ASPIRIN 81 MG ENTERIC TAB PO SCH (09:06)
[2018-11-28] MEDS: TORSEMIDE 20 MG TAB PO SCH ×2 (09:06→17:19)
[2018-11-28] MEDS: PANTOPRAZOLE 40MG TAB (PROTONIX) PO SCH (09:07)
[2018-11-28] MEDS: FERROUS SULFATE 325MG TAB PO SCH (09:08)
[2018-11-28 11:30] LABS: MAGNESIUM LEVEL 2.1 MG/DL (1.8-2.4)
[2018-11-28] MEDS ORDERED: LIDOCAINE 2% INJ 100 MG/5 ML SDV (FOR ANES.) As Ordered ONE (13:35)
[2018-11-28] MEDS ORDERED: PROPOFOL 200 MG/20 ML VIAL As Ordered ONE (13:35)
--- NOTE | 2018-11-28 14:43 | ROOR ---
Patient Name: Alexei Malcolm Procedure Date: 11/28/2018 2:11 PM Date of : 1940 Age: 78 Room: [facility] Gender: Male Note Status: Finalized Procedure: Colonoscopy Indications: Heme positive stool Providers: Orlando CASSIDY MD Referring MD: Edu Valentine MD, 2. Inpatient 2. Inpatient Requesting Provider: Medicines: Monitored Anesthesia Care Complications: No immediate complications. Procedure: Pre-Anesthesia Assessment: - The heart rate, respiratory rate, oxygen saturations, blood pressure, adequacy of pulmonary ventilation, and response to care were monitored throughout the procedure. The Colonoscope was introduced through the anus and advanced to 8 cm into the ileum. The colonoscopy was performed without difficulty. The patient tolerated the procedure well. The quality of the bowel preparation was adequate. Findings: The perianal and digital rectal examinations were normal. (EXAM: Complete, PREP:Adequate) Two sessile polyps were found in the sigmoid colon and ascending colon. The polyps were 5 to 6 mm in size. These polyps were removed with a cold snare. Resection and retrieval were complete. To prevent bleeding after the polypectomy, two hemostatic clips were successfully placed (MR conditional). There was no bleeding at the end of the procedure. A diffuse area of mild melanosis was found in the entire colon. A few small-mouthed diverticula were found in the sigmoid colon. Internal hemorrhoids were found during retroflexion. The hemorrhoids were moderate. The exam was otherwise normal throughout the examined colon. The terminal ileum appeared normal. Impression: - (EXAM: Complete, PREP:Adequate) - Two 5 to 6 mm polyps in the sigmoid colon and in the ascending colon, removed with a cold snare. Resected and retrieved. Clips (MR conditional) were placed (sigmoid polypectomy only). - Mild diverticulosis in the sigmoid colon. - Moderate Internal hemorrhoids. - The colon is otherwise normal. - The examined portion of the ileum was normal. Recommendation: - Repeat colonoscopy interval for surveillance based on pathology results. - Telephone endoscopist for pathology results in 2 weeks. - Return to primary care physician as previously scheduled. Orlando Cassidy MD Orlando CASSIDY MD 11/28/2018 2:42:40 PM Electronically signed by Orlando CASSIDY MD Number of Addenda: 0 Note Initiated On: 11/28/2018 2:11 PM Estimated Blood Loss: Estimated blood loss: none.
--- NOTE | 2018-11-28 15:44 | IPNPDOC ---
Subjective Date Seen The patient was seen on 11/28/18. Subjective Chief Complaint/HPI He does not have any difficulty in breathing . He is going for a colonscopy today. His weight has been coming down nicely . No fever or chills, no chest pain or sob. No nausea or vomiting or diarrhea. Objective Physical Examination General Exam: Positive: Alert, Cooperative, Mild Distress Eye Exam: Positive: PERRLA, Conjunctiva & lids normal, EOMI ENT Exam: Positive: Atraumatic, Mucous membr. moist/pink, Pharynx Normal Neck Exam: Positive: Supple, JVD Chest Exam: Positive: Rales, Diminished Heart Exam: Positive: Rate Normal, Regular Rhythm, Normal S1, Normal S2 Telemetry: Positive: No significant arrhythmia Abdomen Exam: Positive: Normal bowel sounds, Soft Extremity Exam: Positive: Edema, Swelling Skin Exam: Positive: Nl turgor and temperature Psych Exam: Positive: Mental status NL, Mood NL, Oriented x 3 Assessment /Plan Assessment 78 year old male with PMH of CKD stage 3 { creatinine 2.0 in May 2018}, Chronic systolic and diastolic heart failure, Last EF of 30%, Ischemic cardiomyopathy (presumed on the basis of regional wall motion abnormality on prior echocardiogram), 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 Non-rheumatic mitral valve regurgitation (moderate mitral regurgitation), Coronary artery disease ([place] vessel) without angina. Presumed diagnosis of coronary artery disease based on presence of regional wall motion abnormalities on echocardiogram, Pulmonary hypertension secondary to left heart failure. Non rheumatic tricuspid valve regurgitation, Right bundle branch block, Systemic hypertension, Obesity, Hyperlipidemia, Type 2 diabetes, Cigarette smoking. H/o GIB in 2006 from gastric prepyloric ulcer, Esophageal stricture presented to the ED after a fall in the street today. He has been having increasing SOB , fatigue and weakness for the past 2 to 3 weeks which really worsened in the last 3 days then today was was so SOB that he could not walk half a block to the bus stop. 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 2 passengers from the bus helped him up into the bus and he came to the transfer center from there the ambulance brought him to the ED. In the ED he was found to have a Hb of 7.7 and a creatinine of 3.4. His guaiac was positive. His Hb from PMD on 10/09/18 was 10.9 and on may 2018 was 11.8. He was admitted for CHF exacerbation , [place] on CKD and symptomatic anemia. Acute on Chronic diastolic CHF exacerbation New echo shows normalized EF only the presence of diastolic dysfunction last Echo had showed EF was 30% continue torsemide urinary cath I/O monitoring. DASH diet with 1.8 liters. Cardiology consult appreciated. Pulmonary hypertension with acute on chronic right heart failure continue diuretics. [place] on CKD stage 3 Due to cardiorenal syndrome baseline creatinine is about 2.0. creatinine is improving continue on diuresis Renal and bladder ultrasound reviewed. There is increased echogenicity bilateral kidneys. No features of obstruction will hold ACEI, ARBs, spironolactone Symptomatic anemia HH has been slowly going down over the past 6 months. was 11.8 in may 2018 was 10.9 in september 2018 patient is guaic positive but no overt hematemesis of josue or hematochezia EGD on 11/25/18 : Widely patent Schatzki ring. Otherwise normal esophagus. Medium-sized hiatal hernia. Otherwise normal stoma. Three tiny (<1 mm) non- bleeding angioectasias in duodenum (dubious significance). Treated with argon beam coagulation. Colonoscopy on 11/28/18 Anemia probably a combination of anemia of CKD and slow GIB Has iron deficiency and also folate deficiency will start supplementation received 2 units on PRBC. CAD with ischemic cardiomyopathy will hold ASA now. will continue with betablocker with hold parameters. Diabetes continue with lispro and levemir FS AC and HS Hypertension controlled with some low numbers. will hold amlodipine and losartan continue with coreg with hold parameters Pulmonary hypertension with chronic right heart failure now in exacerbation due to exacerbation of left heart failure continue torsemide. Valvular heart disease moderate mitral and tricuspid regurgitation Smoking discussed smoking cessation using nicotine patch . Gi prophylaxis pantoprazole DVT TEDS and stockings Plan/VTE VTE Prophylaxis Ordered?: Yes VS, I&O, 24H, Fishbone Vital Signs/I&O Vital Signs Date Time Temp Pulse Resp B/P (MAP) Pulse Ox O2 Delivery O2 Flow Rate FiO2 11/28/18 14:56 55 16 120/60 (80) 95 11/28/18 14:40 97.4 11/25/18 18:18 4 11/24/18 14:15 Room Air I&O- Last 24 Hours up to 6 AM 11/28/18 06:00 Intake Total 4430 ml Output Total 2550 ml Balance 1880 ml Laboratory Data 24H LABS Laboratory Tests 2 11/27/18 17:22: Bedside Glucose (Misc Panel) 119H 11/27/18 20:50: Bedside Glucose (Misc Panel) 126H 11/28/18 05:25: Immature Granulocyte % (Auto) 0.0, White Blood Count 5.3, Red Blood Count 3.22L, Hemoglobin 10.0L, Hematocrit 30.2L, Mean Corpuscular Volume 93.8, Mean Corpuscular Hemoglobin 31.1, Mean Corpuscular Hemoglobin Concent 33.1, Red Cell Distribution Width 14.6H, Platelet Count 148L, Neutrophils (%) (Auto) 45.5, L ymphocytes (%) (Auto) 37.5, Monocytes (%) (Auto) 10.9H, Eosinophils (%) (Auto) 5.5H, Basophils (%) (Auto) 0.6, Neutrophils # (Auto) 2.4, Lymphocytes # (Auto) 2.0, Monocytes # (Auto) 0.6, Eosinophils # (Auto) 0.3, Basophils # (Auto) 0.0, Nucleated Red Blood Cells % (auto) 0.0, Anion Gap 7L, Glomerular Filtration Rate 24.8L, Blood Urea Nitrogen 49H, Creatinine 2.68H, Sodium Level 138, Potassium Level 3.9, Chloride Level 103, Carbon Dioxide Level 28, Calcium Level 9.5, Magnesium Level 2.1 11/28/18 11:27: Bedside Glucose (Misc Panel) 160H CBC/BMP Laboratory Tests 11/28/18 05:25 Red Blood Count 3.22 L, Mean Corpuscular Volume 93.8, Mean Corpuscular Hemogl obin 31.1, Mean Corpuscular Hemoglobin Concent 33.1, Red Cell Distribution Width 14.6 H, Neutrophils (%) (Auto) 45.5, Lymphocytes (%) (Auto) 37.5, Monocytes (%) (Auto) 10.9 H, Eosinophils (%) (Auto) 5.5 H, Basophils (%) (Auto) 0.6, Neutrophils # (Auto) 2.4, Lymphocytes # (Auto) 2.0, Monocytes # (Auto) 0.6, Eosinophils # (Auto) 0.3, Basophils # (Auto) 0.0, Calcium Level 9.5 SOBEIDA BURRIS MD November 28, 2018 15:44
[2018-11-29 04:00] VITALS: BP 154/65
[2018-11-29 05:33] LABS: BASO % 0.5 % (0.0-1.0); EOS # 0.2 10^3/uL (0.0-0.50); EOS % 3.4 % (0.0-3.0); HEMATOCRIT 28.6 % (42.0-52.0); HEMOGLOBIN 9.4 g/dl (13.5-17.5); LYMPH # 1.8 10^3/uL (1.5-4.5); LYMPH % 29.2 % (24.0-44.0); MEAN CORPUSCULAR HEMOGLOBIN 30.8 pg (27.0-33.0); MEAN CORPUSCULAR HGB CONC 32.9 g/dl (32.0-36.5); MEAN CORPUSCULAR VOLUME 93.8 fl (80.0-96.0); MONO # 0.6 10^3/uL (0.0-0.8); MONO % 8.9 % (0.0-5.0); NEUTROPHILS # 3.6 10^3/uL (1.8-7.7); NEUTROPHILS % 57.8 % (36.0-66.0); PLATELET COUNT, AUTOMATED 147 10^3/uL (150-450); RED BLOOD COUNT 3.05 10^6/uL (4.30-6.10); WHITE BLOOD COUNT 6.3 10^3/uL (4.0-10.0)
[2018-11-29 05:54] LABS: CALCIUM LEVEL 8.4 MG/DL (8.8-10.2); CREATININE FOR GFR 2.34 MG/DL (0.70-1.30); POTASSIUM SERUM 3.7 MEQ/L (3.5-5.1)
[2018-11-29 08:00] VITALS: BP 145/66
[2018-11-29] MEDS: PANTOPRAZOLE 40MG TAB (PROTONIX) PO SCH (08:02)
[2018-11-29] MEDS: ASPIRIN 81 MG ENTERIC TAB PO SCH (08:02)
[2018-11-29] MEDS: DOCUSATE SODIUM 100 MG CAP PO SCH (08:02)
[2018-11-29] MEDS: TORSEMIDE 20 MG TAB PO SCH (08:02)
[2018-11-29] MEDS: MAGNESIUM OXIDE 400 MG TAB (MAG-OX) PO SCH (08:02)
[2018-11-29] MEDS: FOLIC ACID 1 MG TAB PO SCH (08:02)
[2018-11-29] MEDS: FERROUS SULFATE 325MG TAB PO SCH (08:02)
[2018-11-29] MEDS: NICOTINE 7 MG/24 HR TRANSDERMAL TD SCH (08:03)
[2018-11-29] MEDS: HumaLOG INSULIN (NovoLOG) PER UNIT SC SCH (08:03)
[2018-11-29] MEDS ORDERED: FERR325T18 PO (09:38)
[2018-11-29] MEDS ORDERED: NICO7PA TD (09:38)
[2018-11-29] MEDS ORDERED: FOLI1TAB11 PO (09:38)
[2018-11-29] MEDS ORDERED: TORS20TA2 PO (09:38)
[2018-11-29] MEDS ORDERED: COLA100C5 PO (09:38)
--- NOTE | 2018-11-30 12:55 | DS.PDOC ---
Discharge Summary General Date of Admission November 24, 2018 at 16:30 Date of Discharge 11/29/18 Discharge Summary PROCEDURES PERFORMED DURING STAY: EGD:EGD on 11/25/18 : Widely patent Schatzki ring. Otherwise normal esophagus. Medium-sized hiatal hernia. Otherwise normal stoma. Three tiny (<1 mm) non- bleeding angioectasias in duodenum (dubious significance). Treated with argon beam coagulation. Colonoscopy: - Two 5 to 6 mm polyps in the sigmoid colon and in the ascending colon, removed with a cold snare. Resected and retrieved. Clips (MR conditional) were placed (sigmoid polypectomy only). - Mild diverticulosis in the sigmoid colon. - Moderate Internal hemorrhoids. - The colon is otherwise normal. - The examined portion of the ileum was normal. DISCHARGE DIAGNOSES: Acute on Chronic diastolic CHF Pulmonary hypertension Acute on chronic right heart failure Resolved systolic heart failure KYA on CKD stage 3 Symptomatic anemia Iron deficiency Folate deficiency CAD Unlikely Ischemic cardiomyopathy by new echo Diabetes Hypertension Non rheumatic valvular heart disease. COMPLICATIONS/CHIEF COMPLAINT: Acute Exacerbation Of Chf, Kya. 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 Non-rheumatic mitral valve regurgitation (moderate mitral regurgitation), Coronary artery disease ([place] vessel) without angina. Presumed diagnosis of coronary artery disease based on presence of regional wall motion abnormalities on echocardiogram, Pulmonary hypertension secondary to left heart failure. Non rheumatic tricuspid valve regurgitation, Right bundle branch block, Systemic hypertension, Obesity, Hyperlipidemia, Type 2 diabetes, Cigarette smoking. H/o GIB in 2006 from gastric prepyloric ulcer, Esophageal stricture presented to the ED after a fall in the street today. He has been having increasing SOB , fa tigue and weakness for the past 2 to 3 weeks which really worsened in the last 3 days then today was was so SOB that he could not walk half a block to the bus stop. 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 2 passengers from the bus helped him up into the bus and he came to the transfer center from there the ambulance brought him to the ED. In the ED he was found to have a Hb of 7.7 and a creatinine of 3.4. His guaiac was positive. His Hb from PMD on 10/09/18 was 10.9 and on may 2018 was 11.8. He was admitted for CHF exacerbation , [place] on CKD and symptomatic anemia. Acute on Chronic diastolic CHF exacerbation New echo shows normalized EF only the presence of diastolic dysfunction last Echo had showed EF was 30% but this has improved so now he does not have systolic CHF continue torsemide DASH diet with 1.5 liters. Cardiology consult appreciated. Pulmonary hypertension with acute on chronic right heart failure continue diuretics. KYA on CKD stage 3 Due to cardiorenal syndrome baseline creatinine is about 2.0. creatinine is improving now down to 2.3 continue on diuresis Renal and bladder ultrasound reviewed. There is increased echogenicity bilateral kidneys. No features of obstruction will hold ACEI, ARBs, spironolactone Symptomatic anemia HH has been slowly going down over the past 6 months. was 11.8 in may 2018 was 10.9 in september 2018 patient is guaic positive but no overt hematemesis of josue or hematochezia EGD on 11/25/18 : Widely patent Schatzki ring. Otherwise normal esophagus. Medium-sized hiatal hernia. Otherwise normal stoma. Three tiny (<1 mm) non- bleeding angioectasias in duodenum (dubious significance). Treated with argon beam coagulation. Colonoscopy on 11/28/18 Anemia probably a combination of anemia of CKD and slow GIB Has iron deficiency and also folate deficiency will start supplementation received 2 units on PRBC. CAD with ischemic cardiomyopathy DOes not seem to have underlying ischemic cardiomyopathy as his EF is now normal and there is no regional wall motion abnormality. will hold ASA now. will continue with betablocker with hold parameters. Diabetes continue with lispro and levemir FS AC and HS Hypertension controlled with some low numbers. will hold amlodipine and losartan continue with coreg with hold parameters Valvular heart disease moderate mitral and tricuspid regurgitation Smoking discussed smoking cessation using nicotine patch . Gi prophylaxis pantoprazole DISCHARGE MEDICATIONS: Please see below. ALLERGIES: Please see below. PHYSICAL EXAMINATION ON DISCHARGE: VITAL SIGNS: Please see below. General Exam: Positive: Alert, Cooperative, No distress Eye Exam: Positive: PERRLA, Conjunctiva & lids normal, EOMI ENT Exam: Positive: Atraumatic, Mucous membr. moist/pink, Pharynx Normal Neck Exam: Positive: Supple, No JVD. Chest Exam: Positive: Bilateral vesicular breath sounds, Diminished no rales or ronchi. Heart Exam: Positive: Rate Normal, Regular Rhythm, Normal S1, Normal S2 Telemetry: Positive: No significant arrhythmia Abdomen Exam: Positive: Normal bowel sounds, Soft Extremity Exam: Positive: Edema, Swelling Skin Exam: Positive: Nl turgor and temperature Psych Exam: Positive: Mental status NL, Mood NL, Oriented x 3 LABORATORY DATA: Please see below. ACTIVITY: [As tolerated]. DIET: DASH with 1.5 liters fluid restriction. DISPOSITION: Home, Self-Care. DISCHARGE INSTRUCTIONS: Follow up PMD in [address] Watts 2 to 4 weeks DISCHARGE CONDITION: [Stable]. TIME SPENT ON DISCHARGE: 40 minutes. Vital Signs/I&Os Vital Signs Date Time Temp Pulse Resp B/P (MAP) Pulse Ox O2 Delivery O2 Flow Rate FiO2 11/29/18 08:00 98.8 63 20 145/66 (92) 96 11/25/18 18:18 4 11/24/18 14:15 Room Air I&O- Last 24 Hours up to 6 AM 11/30/18 06:00 Intake Total 120 ml Output Total 0 ml Balance 120 ml Discharge Medications Scheduled Acetaminophen/Diphenhydramine (Acetaminophen Pm Caplet) 1 Tab Tab, 1 TAB PO QHS, (Reported) Aspirin (Aspirin) 81 Mg Chw, 81 MG PO DAILY, (Reported) Carvedilol (Carvedilol) 12.5 Mg Tablet, 12.5 MG PO BID, (Reported) Docusate Sodium (Colace) 100 Mg Capsule, 100 MG PO BID Ferrous Sulfate (Ferrous Sulfate) 325 Mg Tablet, 325 MG PO DAILY Folic Acid (Folic Acid) 1 Mg Tablet, 1 MG PO DAILY Losartan Potassium (Losartan Potassium) 100 Mg Tablet, 100 MG PO QHS, (Reported) Magnesium Oxide (Magnesium Oxide) 400 Mg Tablet, 400 MG PO BID, (Reported) Metformin HCl (Metformin HCl) 1,000 Mg Tab, 1,000 MG PO QHS, (Reported) Nicotine (Nicotine Patch) 7 Mg Patch.td24, 1 PATCH TD DAILY Omeprazole (Omeprazole) 20 Mg Cap, 20 MG PO QPM, (Reported) TAKES AT 1700 Torsemide (Torsemide) 20 Mg Tablet, 40 MG PO BID Scheduled PRN Insulin Detemir (Levemir) 1 Units/0.01 Ml Susp, 30 UNITS SC QHS PRN for BLOOD SUGAR , (Reported) PATIENT INDICATED HE ONLY USES THIS WHEN BLOOD SUGAR IS ABNORMALLY HIGH Allergies Coded Allergies: No Known Drug Allergies (Verified Allergy, Unknown, 11/24/18) SOBEIDA BURRIS MD November 30, 2018 12:55
== END 2018-11-29 12:00 | disposition home or self-care (01) | DRG 291 ==
LOC: M ED 13:19 → EDBD 13:19 → M ED INP 16:30 → M PCU 18:08
PROVIDERS: ADMIT Internal Medicine Nephrology; ATTEND Internal Medicine Nephrology
PROC: 30233N1 Transfusion of Nonautologous Red Blood Cells into Peripheral Vein, Percutaneous Approach (ICD-10-PCS; principal; 2018-11-24)
PROC: 0DJ08ZZ Inspection of Upper Intestinal Tract, Via Natural or Artificial Opening Endoscopic (ICD-10-PCS; 2018-11-25)
PROC: 0DBN8ZX Excision of Sigmoid Colon, Via Natural or Artificial Opening Endoscopic, Diagnostic (ICD-10-PCS; 2018-11-28)
PROC: 0DBK8ZX Excision of Ascending Colon, Via Natural or Artificial Opening Endoscopic, Diagnostic (ICD-10-PCS; 2018-11-28)
PROC: 0W3P8ZZ Control Bleeding in Gastrointestinal Tract, Via Natural or Artificial Opening Endoscopic (ICD-10-PCS; 2018-11-28)
DX: I13.0 Hypertensive heart and chronic kidney disease with heart failure and stage 1 through stage 4 chronic kidney disease, or unspecified chronic kidney disease (principal); I50.43 Acute on chronic combined systolic (congestive) and diastolic (congestive) heart failure; N17.9 Acute kidney failure, unspecified; N18.3 Chronic kidney disease, stage 3 (moderate); I50.814 Right heart failure due to left heart failure; I27.20 Pulmonary hypertension, unspecified; D50.9 Iron deficiency anemia, unspecified; I25.10 Atherosclerotic heart disease of native coronary artery without angina pectoris; E11.9 Type 2 diabetes mellitus without complications; E53.8 Deficiency of other specified B group vitamins; D12.5 Benign neoplasm of sigmoid colon; D12.2 Benign neoplasm of ascending colon; K57.30 Diverticulosis of large intestine without perforation or abscess without bleeding; K64.8 Other hemorrhoids; I25.5 Ischemic cardiomyopathy; K44.9 Diaphragmatic hernia without obstruction or gangrene; D63.1 Anemia in chronic kidney disease; F17.200 Nicotine dependence, unspecified, uncomplicated; Z79.899 Other long term (current) drug therapy; Z79.82 Long term (current) use of aspirin; Z79.4 Long term (current) use of insulin; K22.2 Esophageal obstruction; K31.819 Angiodysplasia of stomach and duodenum without bleeding; I34.0 Nonrheumatic mitral (valve) insufficiency; I45.10 Unspecified right bundle-branch block; E78.5 Hyperlipidemia, unspecified; I25.2 Old myocardial infarction